=== PATIENT | male | born 1985 | race Caucasian/White ===

== ENCOUNTER 2019-10-25 15:27 | Emergency (ER) | payer SELFPAY ==
[2019-10-25] VITALS (8 sets, daily range): BP systolic 74–153; BP diastolic 41–110; PULSE 85–105; RESP 12–26; TEMP 36.8–37.7; O2SAT 91–99; BMI 27.7
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
--- NOTE | 2019-10-25 15:41 | PC.NURSE ---
also states, has not had antiseizure meds and anti tremors meds in a couple of months.
[2019-10-25 15:46] LABS: Add Manual Diff / Slide Review NO; Basophils Absolute Auto 100 /uL (0-100); Basophils Percent Auto 1.4 % (0-2); Eosinophils Absolute Auto 100 /uL (0-450); Eosinophils Percent Auto 0.5 % (2-4); Hematocrit 52.4 % (41-53); Hemoglobin 17.9 g/dL (13.5-17.5); Lymphocytes Absolute Auto 2800 /uL (1100-4500); Lymphocytes Percent Auto 26.8 % (25-40); Mean Corpuscular HGB Conc 34.2 % (30-36); Mean Corpuscular Hemoglobin 35.9 PG (26-34); Mean Corpuscular Volume 104.9 fL (80-100); Monocytes Absolute Auto 1500 /uL (0-900); Monocytes Percent Auto 14.7 % (3-14); Neutrophils Absolute Auto 5900 /uL (1500-7000); Neutrophils Percent Auto 56.6 % (50-75); Platelet Count 304 X10^3/uL (150-400); Red Blood Cell Count 4.99 X10^6/uL (4.5-5.9); Red Cell Distribution Width 15.4 % (11.6-14.8); White Blood Cell Count 10.4 X10^3/uL (4.5-11.0)
[2019-10-25 15:53] LABS: BUN Creatinine Ratio 6.7 (6-22); Blood Urea Nitrogen 6 mg/dL (9-20); Calcium 9.9 mg/dL (8.4-10.2); Carbon Dioxide 14 mmol/L (22-32); Chloride 101 mmol/L (98-107); Estimated Glomerular Filt Rate > 60.0 mL/min (>60); Glucose 117 mg/dL (70-100); HEMOLYSIS 34 (0-50); Magnesium 2.2 mg/dL (1.6-2.3); Potassium 3.6 mmol/L (3.4-5.1); Sodium 142 mmol/L (137-145)
[2019-10-25 16:09] LABS: Prolactin 32.4 ng/mL (3.7-17.9)
[2019-10-25 16:56] LABS: Albumin 5.2 g/dL (3.5-5.0); Albumin Globulin Ratio 1.8 (1.0-2.8); Alkaline Phosphatase 98 U/L (38-126); Bilirubin Total 1.8 mg/dL (0.2-1.3); Globulin 2.9 g/dL (1.7-4.1); Total Protein 8.1 g/dL (6.3-8.2)
[2019-10-25 17:02] LABS: Aspartate Aminotransferase 97 IU/L (17-59)
[2019-10-25 17:03] LABS: Alanine Aminotransferase 47 IU/L (<50)
[2019-10-25] MEDS: SODIUM CHLORIDE 0.9% 1,000 ML 1000 ML IV (17:46)
[2019-10-25] MEDS: ONDANSETRON 4 MG/2 ML INJ IV (17:46)
[2019-10-25] MEDS: LORazepam 2 MG/ML INJ IV (17:46)
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
[2019-10-25] MEDS: PHENobarbital 65 MG/ML VIAL 130 MG IV (19:04)
== END 2019-10-25 20:00 | disposition home or self-care (01) ==
PROVIDERS: Emergency Provider Emergency Medicine
DX: R56.9 Unspecified convulsions (principal); F10.239 Alcohol dependence with withdrawal, unspecified
CPT/HCPCS: 80053; 83735; 84146; 85025; 93005; 96361; 96374; 96375; 99284; J2060; J2405; J2560

== ENCOUNTER 2025-08-04 09:56 | Inpatient (IN) | payer OTHER, SELFPAY ==
[2025-08-04] VITALS (52 sets, daily range): BP systolic 75–137; BP diastolic 43–91; PULSE 79–121; RESP 15–44; TEMP 36.8; O2SAT 86–100; BMI 28.3
[2025-08-04 10:45] LABS: Add Manual Diff / Slide Review NO; Hematocrit 47.2 % (41-53); Hemoglobin 16.5 g/dL (13.5-17.5); Lymphocytes Absolute Auto 2200 /uL (1100-4500); Mean Corpuscular HGB Conc 35.0 % (30-36); Mean Corpuscular Hemoglobin 32.6 PG (26-34); Mean Corpuscular Volume 93.1 fL (80-100); Platelet Count 269 X10^3/uL (150-400)
[2025-08-04 10:57] LABS: Acetaminophen < 10 ug/mL (10-30); Alanine Aminotransferase 31 IU/L (<50); Albumin 4.7 g/dL (3.5-5.0); Albumin Globulin Ratio 1.8 (1.0-2.8); Alkaline Phosphatase 71 U/L (38-126); Blood Urea Nitrogen 4 mg/dL (9-20); Calcium 8.5 mg/dL (8.4-10.2); Carbon Dioxide 29 mmol/L (22-32); Chloride 94 mmol/L (98-107); Estimated Glomerular Filt Rate > 60 mL/min (>60); Globulin 2.6 g/dL (1.7-4.1); Glucose 122 mg/dL (70-99); HEMOLYSIS < 15 (0-50); Potassium 3.3 mmol/L (3.4-5.1); Salicylate < 1.0 mg/dL (<20); Sodium 139 mmol/L (137-145); Total Protein 7.3 g/dL (6.3-8.2)
[2025-08-04 11:16] LABS: Ethanol (ETOH) 405 mg/dL (<10)
[2025-08-04 11:28] LABS: TSH w/ Reflex to FT4 0.05 uIU/mL (0.47-4.68)
[2025-08-04 11:56] LABS: Free T4, Direct Thyroxine 2.08 ng/dL (0.78-2.19)
[2025-08-04 12:08] LABS: Ur Creatinine Normal (Normal); Ur Specific Gravity Normal (Normal); Urine MDMA Negative (Negative); Urine Methamphetamines Negative (Negative); Urine THC Positive (Negative); Urine Tricyclic Antidepressant Negative (Negative); Urine pH Normal (Normal)
--- NOTE | 2025-08-04 12:20 | ED_ITS ---
HPI - Alcohol <Kiran Serrano MD - Last Filed: 08/21/25 08:00> General Chief Complaint: Toxicology Problem Stated Complaint: alc withdrawals Time Seen by Provider: 08/04/25 12:11 History of Present Illness HPI narrative: 40-year-old male with a history of alcohol abuse requesting medical clearance to go to [facility] [place]. Reports he has a history of alcohol withdrawal seizures and was treated at that facility approximately 2 months ago. Said that he began drinking just a few days ago, 4 or 5 days ago was seen at [facility] in the emergency department with a pneumonia. Reportedly started drinking after that. Not having vomiting still has a cough and says he feels ?terrible?. Has had some nausea and vomiting. He is here accompanied by his father who assists with the history. Last drank alcohol this morning immediately prior to coming to the emergency department. Related Data Previous Rx's ?Medication ?Instructions ?Recorded ondansetron 4 mg disintegrating 4 mg PO Q6H PRN nausea and 10/25/19 tablet vomiting #14 tabs amoxicillin 875 mg-potassium 1 tab PO BID #14 tabs clavulanate 125 mg tablet chlordiazepoxide HCl 25 mg capsule 25 mg PO Q8-12H PRN anxiety #14 08/07/25 caps Allergies Allergy/AdvReac Type Severity Reaction Status Date / Time No Known Drug Allergies Allergy Verified 08/06/25 08:40 Patient History <Kiran Serrano MD - Last Filed: 08/21/25 08:00> Medical History Alcohol abuse Social History household members: family Smoking Status: Current some day smoker alcohol intake: current Smoking Status: Current every day smoker tobacco type: cigarettes alcohol intake frequency: other Alcohol type: hard liquor Exam <Kiran Serrano MD - Last Filed: 08/21/25 08:00> Initial Vital Signs Initial Vital Signs: Vital Signs Temperature 98.3 F 08/04/25 10:04 Pulse Rate 105 H 08/04/25 10:04 Respiratory Rate 20 08/04/25 10:04 Blood Pressure 134/86 08/04/25 10:04 Pulse Oximetry 95 08/04/25 10:04 Oxygen Delivery Method Room Air 08/04/25 10:04 Alert oriented, appears intoxicated with slurred speech. Mildly tachycardic alcohol on his breath Normocephalic and atraumatic head, pupils are equal and reactive oral mucosa is moist neck is supple Lungs have scattered wheezes Cardiac exam remarkable for mild tachycardia no murmur or gallop Abdomen normal bowel sounds soft and nontender Affect is depressed. He is not tremulous at present. <Selam Russell DO - Last Filed: 08/04/25 20:44> Initial Vital Signs Initial Vital Signs: Vital Signs Temperature 98.3 F 08/04/25 10:04 Pulse Rate 105 H 08/04/25 10:04 Respiratory Rate 20 08/04/25 10:04 Blood Pressure 134/86 08/04/25 10:04 Pulse Oximetry 95 08/04/25 10:04 Oxygen Delivery Method Room Air 08/04/25 10:04 Course <Kiran Serrano MD - Last Filed: 08/21/25 08:00> Orders Ordered: Discontinued Medications Hydrocodone Bitart/Acetaminophen (Hydrocodone/Acet 5/325 Tablet) 1 tab PO Q4HR PRN PRN Reason: Pain, Moderate (4-6) Last Admin: 08/05/25 08:18 Dose: 1 tab Documented By: MS Albuterol (Albuterol Hfa Mdi 60 Puff/8 Gm Inhaler (Covid Only)) 2 puff INH NOW ONE Stop: 08/04/25 12:24 Last Admin: 08/04/25 12:37 Dose: Not Given Documented By: SAT Albuterol (Albuterol 2.5 Mg/3 Ml Neb (Adult)) 2.5 mg INH NOW ONE Stop: 08/04/25 12:38 Last Admin: 08/04/25 12:46 Dose: 2.5 mg Documented By: SAT Azithromycin (Azithromycin 250 Mg Tablet) 500 mg PO NOW ONE Stop: 08/05/25 09:35 Last Admin: 08/05/25 10:01 Dose: 500 mg Documented By: MS Droperidol (Droperidol 2.5 Mg/Ml Vial) 0.625 mg IV NOW ONE Stop: 08/04/25 12:24 Last Admin: 08/04/25 12:54 Dose: 0.625 mg Documented By: IVAN Haloperidol (Haloperidol 5 Mg/Ml Vial) 5 mg IV Q1HR PRN PRN Reason: Hallucinations Heparin Sodium (Porcine) (Heparin 5,000 Unit/Ml Vial) 5,000 unit SUBCUT BID [facility] Last Admin: 08/05/25 08:19 Dose: 5,000 unit Documented By: Admin: 08/04/25 20:26 Dose: 5,000 unit Documented By: FM Heparin Sodium (Porcine) (Heparin Flush (Cl/Picc/Mid-Line) 50 Unit/5 Ml Syringe) 50 unit IV BID [facility] Last Admin: 08/05/25 08:19 Dose: Not Given Documented By: Heparin Sodium (Porcine) (Heparin Flush (Cl/Picc/Mid-Line) 50 Unit/5 Ml Syringe) 50 unit IV PRN PRN PRN Reason: Flush Sodium Chloride (Normal Saline 0.9%) 1,000 mls @ 1,000 mls/hr IV BOLUS ONE Stop: 08/04/25 13:22 Last Infusion: 08/04/25 16:23 Dose: Infused Documented By: Admin: 08/04/25 12:54 Dose: 499 mls/hr Documented By: CB Sodium Chloride (Normal Saline 0.9%) 1,000 mls @ 100 mls/hr IV CONT [facility] Last Admin: 08/05/25 10:32 Dose: 100 mls/hr Documented By: Infusion: 08/05/25 10:32 Dose: Infused Documented By: Admin: 08/05/25 02:39 Dose: 100 mls/hr Documented By: Infusion: 08/05/25 02:39 Dose: Infused Documented By: Admin: 08/04/25 19:14 Dose: 100 mls/hr Documented By: KIYA dexmedeTOMIDine in 0.9 % NaCL (Precedex) 400 mcg in 100 mls @ 4.876 mls/hr IV PROTOCOL [facility]; Protocol Last Admin: 08/05/25 14:38 Dose: 1 mcg/kg/hr, 24.381 mls/hr Documented By: Titration: 08/05/25 14:37 Dose: Infused Documented By: Admin: 08/05/25 10:30 Dose: 1 mcg/kg/hr, 24.381 mls/hr Documented By: Titration: 08/05/25 10:30 Dose: Infused Documented By: Titration: 08/05/25 09:57 Dose: 1 mcg/kg/hr, 24.381 mls/hr Documented By: Admin: 08/05/25 06:28 Dose: 0.8 mcg/kg/hr, 19.504 mls/hr Documented By: Titration: 08/05/25 06:12 Dose: Infused Documented By: Admin: 08/05/25 01:04 Dose: 0.8 mcg/kg/hr, 19.504 mls/hr Documented By: Titration: 08/05/25 01:02 Dose: Infused Documented By: Titration: 08/04/25 23:19 Dose: 0.8 mcg/kg/hr, 19.504 mls/hr Documented By: Titration: 08/04/25 21:25 Dose: 0.7 mcg/kg/hr, 17.066 mls/hr Documented By: Titration: 08/04/25 19:34 Dose: 0.6 mcg/kg/hr, 14.628 mls/hr Documented By: Admin: 08/04/25 18:59 Dose: 0.5 mcg/kg/hr, 12.19 mls/hr Documented By: KIYA Thiamine HCl 100 mg/ Sodium (Chloride) 101 mls @ 404 mls/hr IV DAILY [facility] POTASSIUM CHLORIDE IN WATER (Potassium Cl 10 Meq/100 Ml [place]) 10 meq in 100 mls @ 100 mls/hr IV Q1H [facility] Stop: 08/04/25 22:44 Last Infusion: 08/05/25 09:50 Dose: Infused Documented By: Admin: 08/05/25 06:30 Dose: 30 mls/hr Documented By: Infusion: 08/05/25 05:35 Dose: Infused Documented By: Admin: 08/05/25 02:15 Dose: 30 mls/hr Documented By: Infusion: 08/05/25 02:06 Dose: Infused Documented By: Infusion: 08/04/25 22:54 Dose: 30 mls/hr Documented By: Admin: 08/04/25 22:49 Dose: 50 mls/hr Documented By: Infusion: 08/04/25 21:33 Dose: Infused Documented By: Admin: 08/04/25 20:33 Dose: 100 mls/hr Documented By: Thiamine HCl 100 mg/ Sodium (Chloride) 101 mls @ 404 mls/hr IV DAILY [facility] Azithromycin 500 mg/ Dextrose 250 mls @ 250 mls/hr IV Q24H [facility] Stop: 08/07/25 10:00 Lorazepam (Lorazepam 2 Mg/Ml Inj) 2 mg IV NOW ONE Stop: 08/04/25 17:11 Last Admin: 08/04/25 17:16 Dose: 2 mg Documented By: CB Lorazepam (Lorazepam 2 Mg/Ml Inj) 2 mg IV NOW ONE Stop: 08/04/25 18:02 Last Admin: 08/04/25 18:41 Dose: Not Given Documented By: RB Lorazepam (Lorazepam 2 Mg/Ml Inj) 0 mg IV CIWAPRN PRN; Protocol PRN Reason: Alcohol Withdrawal Last Admin: 08/05/25 11:41 Dose: 2 mg Documented By: MS Lorazepam (Lorazepam 1 Mg Tablet) 0 mg PO CIWAPRN PRN; Protocol PRN Reason: Alcohol Withdrawal Magnesium Chloride (Magnesium Chloride 64 Mg Tablet) 128 mg PO NOW ONE Stop: 08/05/25 14:01 Last Admin: 08/05/25 14:38 Dose: 128 mg Documented By: MS Multivitamins (Multivitamin 1 Tablet) 1 tab PO DAILY [facility] Last Admin: 08/05/25 08:18 Dose: 1 tab Documented By: MS Naloxone HCl (Naloxone 0.4 Mg/Ml Vial) 0.2 mg IV Q2MIN PRN PRN Reason: Opiate Reversal Nicotine (Nicotine 21 Mg Patch) 21 mg TOP DAILY [facility] Last Admin: 08/05/25 08:19 Dose: 21 mg Documented By: Admin: 08/04/25 20:21 Dose: 21 mg Documented By: FM Phenobarbital (Phenobarbital 65 Mg/Ml Vial) 130 mg IV NOW ONE Stop: 08/04/25 16:17 Last Admin: 08/04/25 16:43 Dose: 130 mg Documented By: CB Phenobarbital (Phenobarbital 65 Mg/Ml Vial) 130 mg IV NOW ONE Stop: 08/04/25 17:11 Last Admin: 08/04/25 17:16 Dose: 130 mg Documented By: CB Phenobarbital (Phenobarbital 65 Mg/Ml Vial) 260 mg IV NOW ONE Stop: 08/04/25 18:02 Last Admin: 08/04/25 18:41 Dose: Not Given Documented By: RB Phenobarbital (Phenobarbital 65 Mg/Ml Vial) 65 mg IV Q8H [facility] Stop: 08/07/25 18:44 Last Admin: 08/05/25 10:01 Dose: 65 mg Documented By: Admin: 08/05/25 03:27 Dose: 65 mg Documented By: Admin: 08/04/25 19:14 Dose: 65 mg Documented By: KIYA Thiamine HCl (Thiamine 100 Mg Tablet) 100 mg PO DAILY [facility] Vital Signs Vital signs: Vital Signs - 8 hr 08/04/25 12:45 08/04/25 12:47 08/04/25 13:00 Pulse Rate 104 H 106 H Respiratory Rate 24 24 Blood Pressure 137/85 Pulse Oximetry 98 96 Oxygen Delivery Method Room Air Oxygen Flow Rate 08/04/25 13:00 08/04/25 13:15 08/04/25 13:30 Pulse Rate 107 H 93 H Respiratory Rate 23 Blood Pressure 105/66 Pulse Oximetry 96 93 Oxygen Delivery Method Oxygen Flow Rate 08/04/25 13:30 08/04/25 13:45 08/04/25 14:00 Pulse Rate 93 H 89 101 H Respiratory Rate 23 22 21 Blood Pressure Pulse Oximetry 91 86 L 95 Oxygen Delivery Method Room Air Oxygen Flow Rate 08/04/25 14:00 08/04/25 14:15 08/04/25 14:30 Pulse Rate 92 H 121 H Respiratory Rate 20 21 Blood Pressure 137/81 Pulse Oximetry 95 98 Oxygen Delivery Method Oxygen Flow Rate 08/04/25 14:30 08/04/25 14:45 08/04/25 15:00 Pulse Rate 100 H 96 H Respiratory Rate 22 20 Blood Pressure 125/83 Pulse Oximetry 95 97 Oxygen Delivery Method Oxygen Flow Rate 08/04/25 15:00 08/04/25 15:15 08/04/25 15:30 Pulse Rate 92 H 89 Respiratory Rate 20 19 Blood Pressure 127/77 Pulse Oximetry 96 97 Oxygen Delivery Method Oxygen Flow Rate 08/04/25 15:30 08/04/25 15:45 08/04/25 16:15 Pulse Rate 100 H 115 H Respiratory Rate 20 Blood Pressure 129/77 Pulse Oximetry 95 94 Oxygen Delivery Method Oxygen Flow Rate 08/04/25 16:30 08/04/25 16:45 08/04/25 16:53 Pulse Rate 103 H 105 H 104 H Respiratory Rate 15 18 20 Blood Pressure Pulse Oximetry 92 95 Oxygen Delivery Method Oximask Oxygen Flow Rate 2 08/04/25 16:53 08/04/25 17:00 08/04/25 17:00 Pulse Rate 103 H Respiratory Rate 22 Blood Pressure 133/84 135/80 Pulse Oximetry 92 Oxygen Delivery Method Oxygen Flow Rate 08/04/25 17:15 08/04/25 17:30 08/04/25 17:31 Pulse Rate 108 H 112 H Respiratory Rate 25 H 27 H Blood Pressure 108/82 Pulse Oximetry 93 94 Oxygen Delivery Method Oxygen Flow Rate 08/04/25 17:31 08/04/25 17:45 08/04/25 18:00 Pulse Rate 112 H 111 H 117 H Respiratory Rate 44 H 23 Blood Pressure Pulse Oximetry 94 95 95 Oxygen Delivery Method Oxygen Flow Rate 08/04/25 18:15 Pulse Rate 100 H Respiratory Rate 30 H Blood Pressure Pulse Oximetry 94 Oxygen Delivery Method Oxygen Flow Rate <Selam Russell DO - Last Filed: 08/04/25 20:44> Orders Ordered: Discontinued Medications Hydrocodone Bitart/Acetaminophen (Hydrocodone/Acet 5/325 Tablet) 1 tab PO Q4HR PRN PRN Reason: Pain, Moderate (4-6) Last Admin: 08/05/25 08:18 Dose: 1 tab Documented By: Albuterol (Albuterol Hfa Mdi 60 Puff/8 Gm Inhaler (Covid Only)) 2 puff INH NOW ONE Stop: 08/04/25 12:24 Last Admin: 08/04/25 12:37 Dose: Not Given Documented By: SAT Albuterol (Albuterol 2.5 Mg/3 Ml Neb (Adult)) 2.5 mg INH NOW ONE Stop: 08/04/25 12:38 Last Admin: 08/04/25 12:46 Dose: 2.5 mg Documented By: SAT Azithromycin (Azithromycin 250 Mg Tablet) 500 mg PO NOW ONE Stop: 08/05/25 09:35 Last Admin: 08/05/25 10:01 Dose: 500 mg Documented By: Droperidol (Droperidol 2.5 Mg/Ml Vial) 0.625 mg IV NOW ONE Stop: 08/04/25 12:24 Last Admin: 08/04/25 12:54 Dose: 0.625 mg Documented By: IVAN Haloperidol (Haloperidol 5 Mg/Ml Vial) 5 mg IV Q1HR PRN PRN Reason: Hallucinations Heparin Sodium (Porcine) (Heparin 5,000 Unit/Ml Vial) 5,000 unit SUBCUT BID [facility] Last Admin: 08/05/25 08:19 Dose: 5,000 unit Documented By: Admin: 08/04/25 20:26 Dose: 5,000 unit Documented By: FM Heparin Sodium (Porcine) (Heparin Flush (Cl/Picc/Mid-Line) 50 Unit/5 Ml Syringe) 50 unit IV BID [facility] Last Admin: 08/05/25 08:19 Dose: Not Given Documented By: Heparin Sodium (Porcine) (Heparin Flush (Cl/Picc/Mid-Line) 50 Unit/5 Ml Syringe) 50 unit IV PRN PRN PRN Reason: Flush Sodium Chloride (Normal Saline 0.9%) 1,000 mls @ 1,000 mls/hr IV BOLUS ONE Stop: 08/04/25 13:22 Last Infusion: 08/04/25 16:23 Dose: Infused Documented By: Admin: 08/04/25 12:54 Dose: 499 mls/hr Documented By: CB Sodium Chloride (Normal Saline 0.9%) 1,000 mls @ 100 mls/hr IV CONT [facility] Last Admin: 08/05/25 10:32 Dose: 100 mls/hr Documented By: Infusion: 08/05/25 10:32 Dose: Infused Documented By: Admin: 08/05/25 02:39 Dose: 100 mls/hr Documented By: Infusion: 08/05/25 02:39 Dose: Infused Documented By: Admin: 08/04/25 19:14 Dose: 100 mls/hr Documented By: KIYA dexmedeTOMIDine in 0.9 % NaCL (Precedex) 400 mcg in 100 mls @ 4.876 mls/hr IV PROTOCOL [place]; Protocol Last Admin: 08/05/25 14:38 Dose: 1 mcg/kg/hr, 24.381 mls/hr Documented By: Titration: 08/05/25 14:37 Dose: Infused Documented By: Admin: 08/05/25 10:30 Dose: 1 mcg/kg/hr, 24.381 mls/hr Documented By: Titration: 08/05/25 10:30 Dose: Infused Documented By: Titration: 08/05/25 09:57 Dose: 1 mcg/kg/hr, 24.381 mls/hr Documented By: Admin: 08/05/25 06:28 Dose: 0.8 mcg/kg/hr, 19.504 mls/hr Documented By: Titration: 08/05/25 06:12 Dose: Infused Documented By: Admin: 08/05/25 01:04 Dose: 0.8 mcg/kg/hr, 19.504 mls/hr Documented By: Titration: 08/05/25 01:02 Dose: Infused Documented By: Titration: 08/04/25 23:19 Dose: 0.8 mcg/kg/hr, 19.504 mls/hr Documented By: Titration: 08/04/25 21:25 Dose: 0.7 mcg/kg/hr, 17.066 mls/hr Documented By: Titration: 08/04/25 19:34 Dose: 0.6 mcg/kg/hr, 14.628 mls/hr Documented By: Admin: 08/04/25 18:59 Dose: 0.5 mcg/kg/hr, 12.19 mls/hr Documented By: KIYA Thiamine HCl 100 mg/ Sodium (Chloride) 101 mls @ 404 mls/hr IV DAILY [facility] POTASSIUM CHLORIDE IN WATER (Potassium Cl 10 Meq/100 Ml [place]) 10 meq in 100 mls @ 100 mls/hr IV Q1H [facility] Stop: 08/04/25 22:44 Last Infusion: 08/05/25 09:50 Dose: Infused Documented By: Admin: 08/05/25 06:30 Dose: 30 mls/hr Documented By: Infusion: 08/05/25 05:35 Dose: Infused Documented By: Admin: 08/05/25 02:15 Dose: 30 mls/hr Documented By: Infusion: 08/05/25 02:06 Dose: Infused Documented By: Infusion: 08/04/25 22:54 Dose: 30 mls/hr Documented By: Admin: 08/04/25 22:49 Dose: 50 mls/hr Documented By: Infusion: 08/04/25 21:33 Dose: Infused Documented By: Admin: 08/04/25 20:33 Dose: 100 mls/hr Documented By: Thiamine HCl 100 mg/ Sodium (Chloride) 101 mls @ 404 mls/hr IV DAILY [facility] Azithromycin 500 mg/ Dextrose 250 mls @ 250 mls/hr IV Q24H [facility] Stop: 08/07/25 10:00 Lorazepam (Lorazepam 2 Mg/Ml Inj) 2 mg IV NOW ONE Stop: 08/04/25 17:11 Last Admin: 08/04/25 17:16 Dose: 2 mg Documented By: CB Lorazepam (Lorazepam 2 Mg/Ml Inj) 2 mg IV NOW ONE Stop: 08/04/25 18:02 Last Admin: 08/04/25 18:41 Dose: Not Given Documented By: RB Lorazepam (Lorazepam 2 Mg/Ml Inj) 0 mg IV CIWAPRN PRN; Protocol PRN Reason: Alcohol Withdrawal Last Admin: 08/05/25 11:41 Dose: 2 mg Documented By: Lorazepam (Lorazepam 1 Mg Tablet) 0 mg PO CIWAPRN PRN; Protocol PRN Reason: Alcohol Withdrawal Magnesium Chloride (Magnesium Chloride 64 Mg Tablet) 128 mg PO NOW ONE Stop: 08/05/25 14:01 Last Admin: 08/05/25 14:38 Dose: 128 mg Documented By: Multivitamins (Multivitamin 1 Tablet) 1 tab PO DAILY [facility] Last Admin: 08/05/25 08:18 Dose: 1 tab Documented By: Naloxone HCl (Naloxone 0.4 Mg/Ml Vial) 0.2 mg IV Q2MIN PRN PRN Reason: Opiate Reversal Nicotine (Nicotine 21 Mg Patch) 21 mg TOP DAILY [facility] Last Admin: 08/05/25 08:19 Dose: 21 mg Documented By: Admin: 08/04/25 20:21 Dose: 21 mg Documented By: TAMARA Phenobarbital (Phenobarbital 65 Mg/Ml Vial) 130 mg IV NOW ONE Stop: 08/04/25 16:17 Last Admin: 08/04/25 16:43 Dose: 130 mg Documented By: CB Phenobarbital (Phenobarbital 65 Mg/Ml Vial) 130 mg IV NOW ONE Stop: 08/04/25 17:11 Last Admin: 08/04/25 17:16 Dose: 130 mg Documented By: CB Phenobarbital (Phenobarbital 65 Mg/Ml Vial) 260 mg IV NOW ONE Stop: 08/04/25 18:02 Last Admin: 08/04/25 18:41 Dose: Not Given Documented By: RB Phenobarbital (Phenobarbital 65 Mg/Ml Vial) 65 mg IV Q8H [facility] Stop: 08/07/25 18:44 Last Admin: 08/05/25 10:01 Dose: 65 mg Documented By: Admin: 08/05/25 03:27 Dose: 65 mg Documented By: Admin: 08/04/25 19:14 Dose: 65 mg Documented By: KIYA Thiamine HCl (Thiamine 100 Mg Tablet) 100 mg PO DAILY [facility] Vital Signs Vital signs: Vital Signs - 8 hr 08/04/25 12:45 08/04/25 12:47 08/04/25 13:00 Pulse Rate 104 H 106 H Respiratory Rate 24 24 Blood Pressure 137/85 Pulse Oximetry 98 96 Oxygen Delivery Method Room Air Oxygen Flow Rate 08/04/25 13:00 08/04/25 13:15 08/04/25 13:30 Pulse Rate 107 H 93 H Respiratory Rate 23 Blood Pressure 105/66 Pulse Oximetry 96 93 Oxygen Delivery Method Oxygen Flow Rate 08/04/25 13:30 08/04/25 13:45 08/04/25 14:00 Pulse Rate 93 H 89 101 H Respiratory Rate 23 22 21 Blood Pressure Pulse Oximetry 91 86 L 95 Oxygen Delivery Method Room Air Oxygen Flow Rate 08/04/25 14:00 08/04/25 14:15 08/04/25 14:30 Pulse Rate 92 H 121 H Respiratory Rate 20 21 Blood Pressure 137/81 Pulse Oximetry 95 98 Oxygen Delivery Method Oxygen Flow Rate 08/04/25 14:30 08/04/25 14:45 08/04/25 15:00 Pulse Rate 100 H 96 H Respiratory Rate 22 20 Blood Pressure 125/83 Pulse Oximetry 95 97 Oxygen Delivery Method Oxygen Flow Rate 08/04/25 15:00 08/04/25 15:15 08/04/25 15:30 Pulse Rate 92 H 89 Respiratory Rate 20 19 Blood Pressure 127/77 Pulse Oximetry 96 97 Oxygen Delivery Method Oxygen Flow Rate 08/04/25 15:30 08/04/25 15:45 08/04/25 16:15 Pulse Rate 100 H 115 H Respiratory Rate 20 Blood Pressure 129/77 Pulse Oximetry 95 94 Oxygen Delivery Method Oxygen Flow Rate 08/04/25 16:30 08/04/25 16:45 08/04/25 16:53 Pulse Rate 103 H 105 H 104 H Respiratory Rate 15 18 20 Blood Pressure Pulse Oximetry 92 95 Oxygen Delivery Method Oximask Oxygen Flow Rate 2 08/04/25 16:53 08/04/25 17:00 08/04/25 17:00 Pulse Rate 103 H Respiratory Rate 22 Blood Pressure 133/84 135/80 Pulse Oximetry 92 Oxygen Delivery Method Oxygen Flow Rate 08/04/25 17:15 08/04/25 17:30 08/04/25 17:31 Pulse Rate 108 H 112 H Respiratory Rate 25 H 27 H Blood Pressure 108/82 Pulse Oximetry 93 94 Oxygen Delivery Method Oxygen Flow Rate 08/04/25 17:31 08/04/25 17:45 08/04/25 18:00 Pulse Rate 112 H 111 H 117 H Respiratory Rate 44 H 23 Blood Pressure Pulse Oximetry 94 95 95 Oxygen Delivery Method Oxygen Flow Rate 08/04/25 18:15 Pulse Rate 100 H Respiratory Rate 30 H Blood Pressure Pulse Oximetry 94 Oxygen Delivery Method Oxygen Flow Rate MDM - Alcohol <Kiran Serrano MD - Last Filed: 08/21/25 08:00> Lab Data 08/05/25 07:13 08/05/25 07:13 Labs: Lab Results 08/04/25 08/04/25 08/04/25 Range/Units 10:28 11:30 16:35 WBC 10.2 (4.5-11.0) X10^3/uL RBC 5.07 (4.5-5.9) X10^6/uL Hgb 16.5 (13.5-17.5) g/dL Hct 47.2 (41-53) % MCV 93.1 (80-100) fL MCH 32.6 (26-34) PG MCHC 35.0 (30-36) % RDW 13.8 (11.6-14.8) % Plt Count 269 (150-400) X10^3/uL Neut % (Auto) 67.5 (50-75) % Lymph % (Auto) 21.4 L (25-40) % [place] % (Auto) 9.4 (3-14) % Eos % (Auto) 1.0 L (2-4) % Baso % (Auto) 0.7 (0-2) % Neut # (Auto) 6900 (1218-8579) /uL Lymph # (Auto) 2200 (3853-5316) /uL [place] # (Auto) 1000 H (0-900) /uL Eos # (Auto) 100 (0-450) /uL Baso # (Auto) 100 (0-100) /uL Sodium 139 (137-145) mmol/L Potassium 3.3 L (3.4-5.1) mmol/L Chloride 94 L (98-107) mmol/L Carbon Dioxide 29 (22-32) mmol/L BUN 4 L (9-20) mg/dL Creatinine 0.74 (0.66-1.25) mg/dL Estimated GFR > 60 (>60) mL/min BUN/Creatinine Ratio 5.4 L (6-22) Glucose 122 H (70-99) mg/dL Calcium 8.5 (8.4-10.2) mg/dL Total Bilirubin 0.3 (0.2-1.3) mg/dL AST 32 (17-59) IU/L ALT 31 (<50) IU/L Alkaline Phosphatase 71 (38-126) U/L Total Protein 7.3 (6.3-8.2) g/dL Albumin 4.7 (3.5-5.0) g/dL Globulin 2.6 (1.7-4.1) g/dL Albumin/Globulin Ratio 1.8 (1.0-2.8) TSH 0.05 L (0.47-4.68) uIU/mL Free T4 2.08 (0.78-2.19) ng/dL Salicylates < 1.0 (<20) mg/dL U Opiates 300ng/mL cut Negative (Negative) Ur Oxycodone Screen Negative (Negative) Urine Methadone Screen Negative (Negative) Acetaminophen < 10 (10-30) ug/mL Ur Barbiturates Screen Negative (Negative) U Tricyclic Antidepress Negative (Negative) Ur Phencyclidine Scrn Negative (Negative) Ur Amphetamines Screen Negative (Negative) U Methamphetamines Scrn Negative (Negative) Ur MDMA Scrn (Ecstasy) Negative (Negative) U Benzodiazepines Scrn Negative (Negative) Urine Cocaine Screen Negative (Negative) U Marijuana (THC) Screen Positive H (Negative) Urine pH Normal (Normal) Urine Specific [place] Normal (Normal) Ethyl Alcohol 405 H* 304 H (<10) mg/dL Ur Creatinine Normal (Normal) Urine Dip Bedside Urine Glucose Negative Bedside Urine Bilirubin - Negative Bedside Urine Ketone - Negative Urine Specific [place] 1.005 Bedside Urine Occult Blood - Negative Bedside Urine pH 6 Bedside Urine Protein - Negative Bedside Urine Urobilinogen 0.2 Bedside Urine Nitrite - Negative Bedside Urine Leukocytes - Negative Esterase <Selam Russell DO - Last Filed: 08/04/25 20:44> Lab Data Labs: Lab Results 08/04/25 08/04/25 08/04/25 Range/Units 10:28 11:30 16:35 WBC 10.2 (4.5-11.0) X10^3/uL RBC 5.07 (4.5-5.9) X10^6/uL Hgb 16.5 (13.5-17.5) g/dL Hct 47.2 (41-53) % MCV 93.1 (80-100) fL MCH 32.6 (26-34) PG MCHC 35.0 (30-36) % RDW 13.8 (11.6-14.8) % Plt Count 269 (150-400) X10^3/uL Neut % (Auto) 67.5 (50-75) % Lymph % (Auto) 21.4 L (25-40) % [place] % (Auto) 9.4 (3-14) % Eos % (Auto) 1.0 L (2-4) % Baso % (Auto) 0.7 (0-2) % Neut # (Auto) 6900 (5136-8722) /uL Lymph # (Auto) 2200 (3046-2485) /uL [place] # (Auto) 1000 H (0-900) /uL Eos # (Auto) 100 (0-450) /uL Baso # (Auto) 100 (0-100) /uL Sodium 139 (137-145) mmol/L Potassium 3.3 L (3.4-5.1) mmol/L Chloride 94 L (98-107) mmol/L Carbon Dioxide 29 (22-32) mmol/L BUN 4 L (9-20) mg/dL Creatinine 0.74 (0.66-1.25) mg/dL Estimated GFR > 60 (>60) mL/min BUN/Creatinine Ratio 5.4 L (6-22) Glucose 122 H (70-99) mg/dL Calcium 8.5 (8.4-10.2) mg/dL Total Bilirubin 0.3 (0.2-1.3) mg/dL AST 32 (17-59) IU/L ALT 31 (<50) IU/L Alkaline Phosphatase 71 (38-126) U/L Total Protein 7.3 (6.3-8.2) g/dL Albumin 4.7 (3.5-5.0) g/dL Globulin 2.6 (1.7-4.1) g/dL Albumin/Globulin Ratio 1.8 (1.0-2.8) TSH 0.05 L (0.47-4.68) uIU/mL Free T4 2.08 (0.78-2.19) ng/dL Salicylates < 1.0 (<20) mg/dL U Opiates 300ng/mL cut Negative (Negative) Ur Oxycodone Screen Negative (Negative) Urine Methadone Screen Negative (Negative) Acetaminophen < 10 (10-30) ug/mL Ur Barbiturates Screen Negative (Negative) U Tricyclic Antidepress Negative (Negative) Ur Phencyclidine Scrn Negative (Negative) Ur Amphetamines Screen Negative (Negative) U Methamphetamines Scrn Negative (Negative) Ur MDMA Scrn (Ecstasy) Negative (Negative) U Benzodiazepines Scrn Negative (Negative) Urine Cocaine Screen Negative (Negative) U Marijuana (THC) Screen Positive H (Negative) Urine pH Normal (Normal) Urine Specific [place] Normal (Normal) Ethyl Alcohol 405 H* 304 H (<10) mg/dL Ur Creatinine Normal (Normal) Urine Dip Bedside Urine Glucose Negative Bedside Urine Bilirubin - Negative Bedside Urine Ketone - Negative Urine Specific [place] 1.005 Bedside Urine Occult Blood - Negative Bedside Urine pH 6 Bedside Urine Protein - Negative Bedside Urine Urobilinogen 0.2 Bedside Urine Nitrite - Negative Bedside Urine Leukocytes - Negative Esterase MDM Narrative Medical decision making narrative: 1700-I have received sign-out from Dr. Serrano I have seen evaluated patient myself. Patient 40-year-old male history of alcoholism presenting to day with alcohol intoxication wanting detox. Initial alcohol level was greater than 400 repeat his at 300. Accommodations has been made for him to go to detox at level of 250. He is getting quite anxious at the moment he still wants to go to detox but really wants to go outside and have a smoke. He agrees to more medication. He is given more Ativan and phenobarbital. Blood work has been reviewed no anemia no leukocytosis, mild hypokalemia with a potassium of 3 point 3 glucose 122. Bilirubin liver enzymes within normal limits Awaiting alcohol level to be appropriate for detox. Patient continues to be anxious requiring more medication. Detox will not take him due to the amount of medication he is requiring. Dr. Sheridan updated symptoms test results kindly agrees to ICU admission Discharge Plan Departure Patient Disposition: Admitted As Inpatient Clinical Impression: Alcohol withdrawal Qualifiers: Complication of substance-induced condition: with unspecified complication Q ualified Code(s): F10.939 - Alcohol use, unspecified with withdrawal, unspecified Admit Date/Time: 08/04/25 18:25 Admit Provider: Rodger Sheridan
--- NOTE | 2025-08-04 12:23 | DI.RAD.S_ITS ---
PROCEDURE: XR CHEST 1V INDICATIONS: pneumonia TECHNIQUE: One view of the chest was acquired. COMPARISON: None. FINDINGS: Area of high attenuation at the right side of the lower cervical spine most likely related to prior arterial venous malformation embolization procedure. Mild bilateral perihilar and lower lobe peribronchial thickening with patchy lower lobe opacities, more than expected for expiratory result and subsegmental atelectasis; bronchitis, viral infection, bronchopneumonia, asthma or other process should be considered. Follow-up suggested. Mildly prominent allison, mildly prominent pulmonary vessels and/or hilar lymph nodes. Cardiopericardial silhouette within normal limits. No pneumothorax, no pleural effusion. IMPRESSION: Mild peribronchial thickening and patchy opacities as discussed above. Follow- up suggested. If symptoms persist or worsen, CT chest could be performed. Mildly prominent allison. Dictated by: Gus Clement M.D. on 08/04/2025 at 13:18 Approved by: Gus Clement M.D. on 08/04/2025 at 13:23
[2025-08-04] MEDS: ALBUTEROL 2.5 MG/3 ML NEB (ADULT) INH (12:46)
[2025-08-04] MEDS: SODIUM CHLORIDE 0.9% 1,000 ML 499 ML IV (12:54)
[2025-08-04] MEDS: droPERidol 2.5 MG/ML VIAL 0.625 MG IV (12:54)
--- NOTE | 2025-08-04 12:55 | PC.NURSE ---
Pt Iv is positional and wont tolerate prescribed rate. Decreased rate to 499- Md aware.
[2025-08-04 17:05] LABS: Ethanol (ETOH) 304 mg/dL (<10)
--- NOTE | 2025-08-04 18:16 | PC.NURSE ---
Patient reassessed and had CIWA of 18. Provider notified and ordered additional medications. Upon getting medications and returning to patient room patient is resting eyes and notable chest rise and fall with intermittent snoring is noted. Medication returned to pyxis due to this. Provider assessed patient in room during this time and cancelled medications verbally. No medications administered to this patient.
--- NOTE | 2025-08-04 18:37 | P.HP_ITS ---
History of Present Illness History of Present Illness Date Patient Seen: 08/04/25 Time Patient Seen: 18:37 Chief complaint: alc withdrawals Narrative: The patient was a 40-year-old male in the emergency department with the acute alcohol intoxication and impending withdrawal. He was sedated with lorazepam and 2 doses of phenobarbital, 130 each. He has been admitted for withdrawal syndrome. The patient is requiring symptomatic treatment already, with a BAL of around 300. The patient does have history of alcohol use disorder. My evaluation finds him to be in the ER, comfortable and sedated. He was not able to provide any history. Vital signs are stable, he was on 2 L of. ROS not obtainable due to somnolence. O: Patient was sedated, on arousable but appears comfortable. He was breathing without difficulty. Normocephalic skull, EOMI, anicteric sclera, symmetric pupils. Oropharynx unremarkable, no droop. Neck supple, midline trachea, no adenopathy. Lungs clear, normal rate and effort. Heart regular, no murmur gallop or rub. Abdomen is soft, non distended and non tender. Extremities are free of edema. Skin is free of rash or lesions. Joints are not swollen or deformed. Judgment can not be assessed. IMAGING: CXR: Mild peribronchial thickening and patchy opacities as discussed above. Follow- up suggested. If symptoms persist or worsen, CT chest could be performed. Mildly prominent allison. A/P: 1. Initial alcohol intoxication, now with impending withdrawal. 2. Hypokalemia PLAN: -[facility] protocol -phenobarbital scheduled Q 8 hours -ICU level care -Precedex if needed -thiamine 100 mg IV daily -normal saline at 100 mL/hour -replete potassium Default to full resuscitation Appears to live on [facility]. Father is proxy decision maker Will require least 2 midnights in the hospital, supports inpatient status. [facility] Medical History Alcohol abuse Social History Smoking Status: Current every day smoker Meds Home Medications and Allergies Home Medications ?Medication ?Instructions ?Recorded ?Confirmed ?Type chlordiazepoxide HCl 25 mg capsule See Rx Instructions .Route 10/25/19 Rx .COMPLEX PRN alcohol withdrawal #14 caps ondansetron 4 mg disintegrating 4 mg PO Q6H PRN nausea and 10/25/19 Rx tablet vomiting #14 tabs Allergies Allergy/AdvReac Type Severity Reaction Status Date / Time No Known Drug Allergies Allergy Verified 10/25/19 15:41 Exam Vital Signs (past 8 hours): - 08/04/25 11:35 08/04/25 11:35 08/04/25 12:00 Pulse Rate 99 H Respiratory Rate 18 Blood Pressure 123/91 H 133/85 Pulse Oximetry 92 Oxygen Delivery Method 08/04/25 12:00 08/04/25 12:15 08/04/25 12:30 Pulse Rate 90 109 H Respiratory Rate 22 Blood Pressure 136/90 Pulse Oximetry 93 100 Oxygen Delivery Method 08/04/25 12:30 08/04/25 12:45 08/04/25 12:47 Pulse Rate 103 H 104 H 106 H Respiratory Rate 24 24 Blood Pressure Pulse Oximetry 95 98 96 Oxygen Delivery Method Room Air 08/04/25 13:00 08/04/25 13:00 08/04/25 13:15 Pulse Rate 107 H 93 H Respiratory Rate 23 Blood Pressure 137/85 Pulse Oximetry 96 93 Oxygen Delivery Method 08/04/25 13:30 08/04/25 13:30 08/04/25 13:45 Pulse Rate 93 H 89 Respiratory Rate 23 22 Blood Pressure 105/66 Pulse Oximetry 91 86 L Oxygen Delivery Method Room Air 08/04/25 14:00 08/04/25 14:00 08/04/25 14:15 Pulse Rate 101 H 92 H Respiratory Rate 21 20 Blood Pressure 137/81 Pulse Oximetry 95 95 Oxygen Delivery Method 08/04/25 14:30 08/04/25 14:30 08/04/25 14:45 Pulse Rate 121 H 100 H Respiratory Rate 21 22 Blood Pressure 125/83 Pulse Oximetry 98 95 Oxygen Delivery Method 08/04/25 15:00 08/04/25 15:00 08/04/25 15:15 Pulse Rate 96 H 92 H Respiratory Rate 20 20 Blood Pressure 127/77 Pulse Oximetry 97 96 Oxygen Delivery Method 08/04/25 15:30 08/04/25 15:30 08/04/25 15:45 Pulse Rate 89 100 H Respiratory Rate 19 20 Blood Pressure 129/77 Pulse Oximetry 97 95 Oxygen Delivery Method 08/04/25 16:15 08/04/25 16:30 Pulse Rate 115 H 103 H Respiratory Rate 15 Blood Pressure Pulse Oximetry 94 92 Oxygen Delivery Method Oxygen Delivery Method Room Air Objective Labs 08/04/25 10:28 08/04/25 10:28 Labs: Laboratory Results - last 24 hr 08/04/25 08/04/25 08/04/25 10:28 11:30 16:35 WBC 10.2 RBC 5.07 Hgb 16.5 Hct 47.2 MCV 93.1 MCH 32.6 MCHC 35.0 RDW 13.8 Plt Count 269 Neut % (Auto) 67.5 Lymph % (Auto) 21.4 L [place] % (Auto) 9.4 Eos % (Auto) 1.0 L Baso % (Auto) 0.7 Neut # (Auto) 6900 Lymph # (Auto) 2200 [place] # (Auto) 1000 H Eos # (Auto) 100 Baso # (Auto) 100 Sodium 139 Potassium 3.3 L Chloride 94 L Carbon Dioxide 29 BUN 4 L Creatinine 0.74 Estimated GFR > 60 BUN/Creatinine Ratio 5.4 L Glucose 122 H Calcium 8.5 Total Bilirubin 0.3 AST 32 ALT 31 Alkaline Phosphatase 71 Total Protein 7.3 Albumin 4.7 Globulin 2.6 Albumin/Globulin Ratio 1.8 TSH 0.05 L Free T4 2.08 Salicylates < 1.0 U Opiates 300ng/mL cut Negative Ur Oxycodone Screen Negative Urine Methadone Screen Negative Acetaminophen < 10 Ur Barbiturates Screen Negative U Tricyclic Antidepress Negative Ur Phencyclidine Scrn Negative Ur Amphetamines Screen Negative U Methamphetamines Scrn Negative Ur MDMA Scrn (Ecstasy) Negative U Benzodiazepines Scrn Negative Urine Cocaine Screen Negative U Marijuana (THC) Screen Positive H Urine pH Normal Urine Specific Twilight Normal Ethyl Alcohol 405 H* 304 H Ur Creatinine Normal Assessment & Plan Time-Based Coding :: 35 min spent with patient and on the chart (including review of chart, obtaining history, exam, reviewing outside data, placing orders, documenting exam and treatment plan, and counseling patient) on 08/04. Quality MIPS - Admit I confirm the patient?s Advance Care Plan is present, Code status is documented, Surrogate decision maker is in patient?s record [If Yes, STOP here]: Yes MIPS - Meds 'Current medications' to include all prescriptions, [id number] products, herbals, cannabis/cannabidiol products, and vitamin/mineral/dietary (nutritional) supplements. I have utilized all available resources to obtain, update, or review the patient?s current medications. [If Yes, STOP here]: Yes
--- NOTE | 2025-08-04 18:47 | CM.IDA ---
Initial DCP Assessment Patient is 40 y/o male who presents to ED due to concern for ETOH withdrawals seeking detox at [facility]. Patient initially presented to [facility] seeking detox but they requested patient seek medical clearance. Patient has [employer] insurance, PCP unknown at this time. Patient has hx of presentations at other hospitals due to concern for ETOH withdrawals and ETOH use. Patient has hx of ETOh withdrawal seizures. MECHANICAL PRODUCT ENGINEER meets with patient and he endorses his preference to go to [facility], upon arrival to ED patient's BAL was 405 and currently trending down. Patient presents with current withdrawal symptoms including, nausea, headache, anxiety, restlessness, sweating with a CIWA of 18. Patient is present in ED with his father. Upon MECHANICAL PRODUCT ENGINEER's presentation to patient's room patient was discussing wanting to leave the ED, patient is verbally redirected and provided with medication and agreeable to stay. Prior to ED patient drank a full bottle of vodka, patient has hx of daily ETOH use. It is reported patient recently relapsed and had 34 days of sobriety. MECHANICAL PRODUCT ENGINEER faxes clinicals to [facility] and it is reported that they could take him tonight if ED provider provides needed rx for patient as [facility]'s pharmacy is closed for the evening. Upon further evaluation from RN and ED provider, due to patient's current withdrawal symptoms and CIWA score patient has been admitted to the ICU by Dr. Sheridan for further treatment and evaluation. Plan: Patient admitted to ICU for further treatment and evaluation, DCP to discuss TOBY treatment options upon medical clearance. JOÃO Early Discharge Planning/Care Management CM Discharge Assessment Start: 08/04/25 18:37 Freq: Status: Active Protocol: Document 08/04/25 18:45 LN (Rec: 08/04/25 18:47 LN [id number]) Discharge Planning Assessment Assigned Discharge JOÃO [place] Food Safety Officer Insurance [employer] Advance Directives? No Advance Directives No on File History Provided By Patient,Family Member,Medical Record Prior Living House Arrangements Type of Drives own vehicle transporation used prior to admit Independent with ADL Yes 's Is patient alert and Yes oriented? Transportation Patient initially wanted to go to detox at [facility], Arrangement revisit TOBY treatment conversation upon medical clearance.
[2025-08-04 18:59] LABS: Ethanol (ETOH) 281 mg/dL (<10)
[2025-08-04] MEDS: dexmedeTOMIDine in 0.9 % NaCL 400 MCG/100 ML PLAST..BAG 12.19 MCG IV (18:59)
[2025-08-04] MEDS: SODIUM CHLORIDE 0.9% 1,000 ML 100 ML IV (19:14)
[2025-08-04] MEDS: NICOTINE 21 MG PATCH TOP (20:21)
[2025-08-04] MEDS: HEPARIN 5,000 UNIT/ML VIAL 5000 UNIT SUBCUT (20:26)
[2025-08-04] MEDS: POTASSIUM CHLORIDE IN WATER 10 MEQ/100 ML PIGGYBACK 100 MEQ IV (20:33)
[2025-08-04 21:27] LABS: MRSA (Nasal) PCR NOT DETECTED (Not Detect)
[2025-08-04] MEDS: POTASSIUM CHLORIDE IN WATER 10 MEQ/100 ML PIGGYBACK 50 MEQ IV (22:49)
--- NOTE | 2025-08-04 22:55 | PC.NURSE ---
Potassium Chloride 10 Meq infusion rate decreased to 30 ml/hr d/t patient complaint of pain with PIV site, able to tolerate after infusion rate reduction.
[2025-08-05] VITALS (64 sets, daily range): BP systolic 89–159; BP diastolic 50–106; PULSE 49–81; RESP 16–46; TEMP 36.7–37; O2SAT 89–97
[2025-08-05] MEDS: dexmedeTOMIDine in 0.9 % NaCL 400 MCG/100 ML PLAST..BAG 19.504 MCG IV ×2 (01:04→06:28)
[2025-08-05] MEDS: POTASSIUM CHLORIDE IN WATER 10 MEQ/100 ML PIGGYBACK 30 MEQ IV ×2 (02:15→06:30)
[2025-08-05] MEDS: SODIUM CHLORIDE 0.9% 1,000 ML 100 ML IV ×2 (02:39→10:32)
[2025-08-05 07:24] LABS: Add Manual Diff / Slide Review NO; Hematocrit 40.7 % (41-53); Hemoglobin 14.4 g/dL (13.5-17.5); Lymphocytes Absolute Auto 2000 /uL (1100-4500); Mean Corpuscular HGB Conc 35.4 % (30-36); Mean Corpuscular Hemoglobin 33.1 PG (26-34); Mean Corpuscular Volume 93.5 fL (80-100); Platelet Count 81 X10^3/uL (150-400)
[2025-08-05 07:32] LABS: Alanine Aminotransferase 29 IU/L (<50); Albumin 3.6 g/dL (3.5-5.0); Albumin Globulin Ratio 1.6 (1.0-2.8); Alkaline Phosphatase 51 U/L (38-126); Blood Urea Nitrogen 7 mg/dL (9-20); Calcium 7.7 mg/dL (8.4-10.2); Carbon Dioxide 25 mmol/L (22-32); Chloride 98 mmol/L (98-107); Estimated Glomerular Filt Rate > 60 mL/min (>60); Globulin 2.3 g/dL (1.7-4.1); Glucose 165 mg/dL (70-99); HEMOLYSIS 39 (0-50); Magnesium 1.7 mg/dL (1.6-2.3); Potassium 3.7 mmol/L (3.4-5.1); Sodium 133 mmol/L (137-145); Total Protein 5.9 g/dL (6.3-8.2)
--- NOTE | 2025-08-05 07:54 | DI.RAD.S_ITS ---
PROCEDURE: XR CHEST 1V INDICATIONS: possible PNA TECHNIQUE: One view of the chest was acquired. COMPARISON: [facility], , XR CHEST 1V, 08/04/2025, 12:26. FINDINGS: Surgical changes and devices: Unchanged appearance of increased densities overlying the right neck. Lungs and pleura: Lungs are clear. No pleural effusions or pneumothorax. Mediastinum: Mediastinal contours appear normal. Heart size is normal. Bones and chest wall: No suspicious bony lesions. Overlying soft tissues appear unremarkable. IMPRESSION: No acute pulmonary process. Dictated by: Jennifer Joseph M.D. on 08/05/2025 at 8:21 Approved by: Jennifer Joseph M.D. on 08/05/2025 at 8:22
[2025-08-05] MEDS: MULTIVITAMIN 1 TABLET 1 TAB PO (08:18)
[2025-08-05] MEDS: HEPARIN 5,000 UNIT/ML VIAL 5000 UNIT SUBCUT (08:19)
[2025-08-05] MEDS: NICOTINE 21 MG PATCH TOP (08:19)
[2025-08-05] MEDS: AZITHROMYCIN 250 MG TABLET 500 MG PO (10:01)
[2025-08-05] MEDS: dexmedeTOMIDine in 0.9 % NaCL 400 MCG/100 ML PLAST..BAG 24.381 MCG IV ×2 (10:30→14:38)
--- NOTE | 2025-08-05 11:14 | DI.RAD.S_ITS ---
PROCEDURE: XR CHEST FOR PICC 1V INDICATIONS: PICC line placement COMPARISON: [facility], CR, XR CHEST 1V, 08/05/2025, 7:56. FINDINGS: PICC was placed by the intravenous therapy team from the right side. Fluoroscopic spot film demonstrates the tip of PICC projecting to the area of distal SVC. IMPRESSION: Tip of PICC projects to the area of distal SVC. Dictated by: Jennifer Joseph M.D. on 08/05/2025 at 11:46 Approved by: Jennifer Joseph M.D. on 08/05/2025 at 11:46
--- NOTE | 2025-08-05 11:39 | CM.DPNOTE ---
DCP note HANDLE BENDER reviewed EMR pt chart/provider report, on precedex, getting PICC line for abx (pneumonia) per RN, A/Ox4, just a little sleepy. HANDLE BENDER met with pt in room briefly. introduced self and role. pt kindly requested we chat more later. this HANDLE BENDER agreed to come back later today vs tomorrow to discuss DCP options P: will continue to discuss TOBY tx options when appropriate. INPT vs OP ETOH rehab likely. hx of leaving [facility]
[2025-08-05 13:29] LABS: Coronavirus NL 63 Not Detected (Not Detect); SARS- CoV-2 Not Detected (Not Detecte)
[2025-08-05] MEDS: MAGNESIUM CHLORIDE 64 MG TABLET 128 MG PO (14:38)
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
== END 2025-08-05 17:42 | disposition left against medical advice (07) | DRG 770 ==
LOC: ED 18:25 → AC 18:26 → ICU 18:47
PROVIDERS: Emergency Medicine; Family Medicine; Internal Medicine; Admitting Provider Hospitalist; Emergency Provider Emergency Medicine; Referring Provider Emergency Medicine; Visit Provider Hospitalist
DX: F10.239 Alcohol dependence with withdrawal, unspecified (principal); F10.229 Alcohol dependence with intoxication, unspecified; E87.6 Hypokalemia; E87.1 Hypo-osmolality and hyponatremia; J06.9 Acute upper respiratory infection, unspecified; F17.200 Nicotine dependence, unspecified, uncomplicated; Z53.29 Procedure and treatment not carried out because of patient's decision for other reasons; Y90.8 Blood alcohol level of 240 mg/100 ml or more
CPT/HCPCS: 36415; 36573; 71045; 80053; 80305; 80320; 80329; 81003; 83735; 84439; 84443; 85025; 87633; 87797; 94640; 96361; 96374; 96375; 96376; 99284; A9270; G0480; J1644; J1790; J2060; J2560; J7030; J7613

== ENCOUNTER 2025-08-06 08:19 | Inpatient (IN) | payer OTHER, SELFPAY ==
[2025-08-04 20:37] VITALS: BMI 28.3
[2025-08-06] VITALS (37 sets, daily range): BP systolic 100–173; BP diastolic 52–99; PULSE 83–121; RESP 15–24; TEMP 36.7–36.9; O2SAT 92–99; BMI 30.2; BMI 29.6
--- NOTE | 2025-08-06 09:08 | ED_ITS ---
HPI - Alcohol General Chief Complaint: Toxicology Problem Stated Complaint: Intoxicated Time Seen by Provider: 08/06/25 08:24 Source: patient and EMS Mode of arrival: EMS History of Present Illness HPI narrative: 40-year-old gentleman history of alcohol use abuse disorder admitted on 08/04/2025 left against medical advice on 08/05/2025 presents with nausea vomiting incontinent of stool and urine and intoxication presents with alcohol intoxication and withdrawal after ingesting 2 gal of vodka last drink was 10 hours ago. Patient initially refused to get out of the car after father brought him here EMS had to called from the parking lot to transfer him directly to the ER. He denies any suicidal or homicidal ideation at this time. He is requesting help for his withdrawal at this time. Other than what is stated 14 point review of system is negative. Related Data Previous Rx's ?Medication ?Instructions ?Recorded ondansetron 4 mg disintegrating 4 mg PO Q6H PRN nausea and 10/25/19 tablet vomiting #14 tabs Allergies Allergy/AdvReac Type Severity Reaction Status Date / Time No Known Drug Allergies Allergy Verified 08/06/25 08:40 Review of Systems Review of Systems ROS Unobtainable: All systems reviewed & are unremarkable except as noted in HPI and below Patient History Medical History Alcohol abuse Social History household members: family Smoking Status: Current some day smoker Smoking Status: Current some day smoker tobacco type: cigarettes alcohol intake frequency: other Alcohol type: hard liquor Exam Narrative Exam Narrative: GENERAL: [40] year old patient appears stated age. Well-developed patient, in mild distress. HEAD: Atraumatic. Normocephalic. EYES: Pupils equal round and reactive. Extraocular motions intact. No scleral icterus. No injection or drainage. ENT: Nose without bleeding, purulent drainage. Throat without erythema, tonsillar hypertrophy or exudate. Airway patent. NECK: Trachea midline. Non tender CARDIOVASCULAR: Tachycardic Regular rate and rhythm without murmurs, gallops, or rubs. RESPIRATORY: Clear to auscultation. Breath sounds equal bilaterally. No wheezes, rales, or rhonchi. GASTROINTESTINAL: Abdomen soft, non-tender, nondistended. EXTREMITIES: No edema or joint tenderness. BACK: Nontender without deformity or crepitance. No flank tenderness. NEURO: AOx3. SKIN: No rash or erythema of visible areas Initial Vital Signs Initial Vital Signs: Vital Signs Pulse Rate 113 H 08/06/25 08:29 Pulse Oximetry 95 08/06/25 08:29 Course Orders Ordered: ED Orders 08/06/25 08:35 Complete Blood Count AUTO DIFF Stat Comprehensive Metabolic Panel Stat Ethanol (ETOH) Stat Free T4, Direct Thyroxine Stat TSH w/ Reflex to FT4 Stat 08/06/25 09:36 Urinalysis and Microscopic Stat Urine Drug Screen, Rapid Stat 08/06/25 09:54 EKG-12 Lead Stat 08/06/25 15:55 Chest [XR chest 1V] Stat Discontinued Medications Ketorolac Tromethamine (Ketorolac 30 Mg/Ml Vial) 30 mg IM NOW ONE Stop: 08/06/25 13:06 Last Admin: 08/06/25 13:11 Dose: 30 mg Documented By: RB Lorazepam (Lorazepam 2 Mg/Ml Inj) 2 mg IM NOW ONE Stop: 08/06/25 09:31 Last Admin: 08/06/25 09:34 Dose: 2 mg Documented By: RB Midazolam HCl (Midazolam 5 Mg/Ml Vial) 2.5 mg IM NOW ONE Stop: 08/06/25 10:31 Last Admin: 08/06/25 10:45 Dose: 2.5 mg Documented By: RB Midazolam HCl (Midazolam 5 Mg/Ml Vial) 2.5 mg IM NOW ONE Stop: 08/06/25 12:43 Last Admin: 08/06/25 12:51 Dose: 2.5 mg Documented By: RB Midazolam HCl (Midazolam 5 Mg/Ml Vial) 2.5 mg IM NOW ONE Stop: 08/06/25 13:06 Last Admin: 08/06/25 13:11 Dose: 2.5 mg Documented By: RB Midazolam HCl (Midazolam 5 Mg/Ml Vial) 2.5 mg IM NOW ONE Stop: 08/06/25 15:26 Last Admin: 08/06/25 15:27 Dose: 2.5 mg Documented By: ES Nicotine (Nicotine 21 Mg Patch) 21 mg TOP NOW ONE Stop: 08/06/25 15:31 Last Admin: 08/06/25 15:58 Dose: 21 mg Documented By: [facility] Vital Signs Vital signs: Vital Signs - 8 hr 08/06/25 08:29 08/06/25 08:30 08/06/25 08:30 Temperature Pulse Rate 113 H 116 H Respiratory Rate Blood Pressure 112/85 Pulse Oximetry 95 95 Oxygen Delivery Method 08/06/25 08:40 08/06/25 09:00 08/06/25 09:30 Temperature 98.5 F Pulse Rate 115 H 98 H 113 H Respiratory Rate 22 22 Blood Pressure 112/85 Pulse Oximetry 95 93 98 Oxygen Delivery Method Room Air 08/06/25 09:30 08/06/25 10:00 08/06/25 10:00 Temperature Pulse Rate 113 H Respiratory Rate Blood Pressure 136/94 H 134/99 H Pulse Oximetry 96 Oxygen Delivery Method 08/06/25 10:20 08/06/25 10:20 08/06/25 10:30 Temperature Pulse Rate 121 H Respiratory Rate Blood Pressure 126/88 173/99 H Pulse Oximetry 96 Oxygen Delivery Method 08/06/25 10:59 08/06/25 11:00 08/06/25 11:30 Temperature Pulse Rate 105 H 95 H 100 H Respiratory Rate 19 Blood Pressure Pulse Oximetry 96 98 95 Oxygen Delivery Method 08/06/25 11:31 08/06/25 11:31 08/06/25 12:00 Temperature Pulse Rate 101 H 100 H Respiratory Rate 20 19 Blood Pressure 134/69 Pulse Oximetry 95 94 Oxygen Delivery Method 08/06/25 12:00 08/06/25 12:13 08/06/25 12:13 Temperature Pulse Rate 101 H Respiratory Rate 19 Blood Pressure 126/57 L 125/60 Pulse Oximetry 96 Oxygen Delivery Method 08/06/25 12:30 08/06/25 12:47 08/06/25 12:47 Temperature Pulse Rate 118 H 106 H Respiratory Rate 24 Blood Pressure 144/86 H Pulse Oximetry 96 Oxygen Delivery Method 08/06/25 13:00 08/06/25 13:00 08/06/25 13:30 Temperature Pulse Rate 114 H 97 H Respiratory Rate 23 17 Blood Pressure 138/93 H Pulse Oximetry 98 97 Oxygen Delivery Method Room Air 08/06/25 13:30 08/06/25 14:00 08/06/25 14:00 Temperature Pulse Rate 94 H Respiratory Rate 19 Blood Pressure 121/81 109/65 Pulse Oximetry 96 Oxygen Delivery Method 08/06/25 14:30 08/06/25 14:30 Temperature Pulse Rate 92 H Respiratory Rate 19 Blood Pressure 104/67 Pulse Oximetry 97 Oxygen Delivery Method MDM - Alcohol Lab Data 08/06/25 08:35 08/06/25 08:35 Labs: Lab Results 08/06/25 08/06/25 08/06/25 Range/Units 08:35 09:36 09:36 WBC 13.4 H D (4.5-11.0) X10^3/uL RBC 5.03 (4.5-5.9) X10^6/uL Hgb 16.6 (13.5-17.5) g/dL Hct 45.9 (41-53) % MCV 91.3 (80-100) fL MCH 33.1 (26-34) PG MCHC 36.2 H (30-36) % RDW 13.6 (11.6-14.8) % Plt Count 295 (150-400) X10^3/uL Neut % (Auto) Not Reportable Lymph % (Auto) Not Reportable Mineral % (Auto) Not Reportable Eos % (Auto) Not Reportable Baso % (Auto) Not Reportable Lymph # (Auto) Not Reportable Mineral # (Auto) Not Reportable Baso # (Auto) Not Reportable Total Counted 100 Seg Neutrophils % 66.0 (38-70) % Lymphocytes % (Manual) 13.0 L (25-45) % Atypical Lymphs % 12.0 H ( - 0) % Monocytes % (Manual) 5.0 (2-11) % Eosinophils % (Manual) 1.0 L (2-4) % Basophils % (Manual) 3.0 H (0-1) % Neutrophils # (Manual) 8844 H (9229-7215) /uL RBC Morphology Normal morphology Sodium 139 (137-145) mmol/L Potassium 4.8 (3.4-5.1) mmol/L Chloride 102 (98-107) mmol/L Carbon Dioxide 24 (22-32) mmol/L BUN 5 L (9-20) mg/dL Creatinine 0.71 (0.66-1.25) mg/dL Estimated GFR > 60 (>60) mL/min BUN/Creatinine Ratio 7.0 (6-22) Glucose 124 H (70-99) mg/dL Calcium 8.4 (8.4-10.2) mg/dL Total Bilirubin 0.6 (0.2-1.3) mg/dL AST 39 (17-59) IU/L ALT 26 (<50) IU/L Alkaline Phosphatase 72 (38-126) U/L Total Protein 6.8 (6.3-8.2) g/dL Albumin 4.3 (3.5-5.0) g/dL Globulin 2.5 (1.7-4.1) g/dL Albumin/Globulin Ratio 1.7 (1.0-2.8) TSH 0.09 L D (0.47-4.68) uIU/mL Free T4 1.59 (0.78-2.19) ng/dL Urine Color Yellow Urine Appearance Clear Urine pH 6.5 Normal (4.5-8.0) Ur Specific [place] <=1.005 (1.000-1.035) Urine Protein Negative (Negative) Urine Glucose (UA) Negative (Negative) g/dL Urine Ketones Negative (NEGATIVE) Urine Occult Blood Negative (Negative) Urine Nitrate Negative (Negative) Urine Bilirubin Negative (NEGATIVE) Urine Urobilinogen 0.2 (0.2) E.U./dL Ur Leukocyte Esterase Negative (NEGATIVE) Urine RBC None seen (0-5/HPF) Urine WBC None seen (0-5/HPF) Ur Squamous Epith Cells None seen (0-5/HPF) Urine Bacteria None seen (None) Ur Culture Indicated? Cult not indicated Vol Urine Centrifuged 10ml (spun) U Opiates 300ng/mL cut Negative (Negative) Ur Oxycodone Screen Negative (Negative) Urine Methadone Screen Negative (Negative) Ur Barbiturates Screen Negative (Negative) U Tricyclic Antidepress Negative (Negative) Ur Phencyclidine Scrn Negative (Negative) Ur Amphetamines Screen Negative (Negative) U Methamphetamines Scrn Negative (Negative) Ur MDMA Scrn (Ecstasy) Negative (Negative) U Benzodiazepines Scrn Negative (Negative) Urine Cocaine Screen Negative (Negative) U Marijuana (THC) Screen Positive H (Negative) Urine Specific [place] Normal (Normal) Ethyl Alcohol 393 H (<10) mg/dL Ur Creatinine Normal (Normal) Imaging Data Chest x-ray: Radiologist's Impressoin: [address] [address] XRay Report Signed Patient: Paulo Wolff MR#: [id number] : 1985 Acct:[id number] Age/Sex: 40 / M Date of Service: 08/06/25 Loc: 90A-1 Accession Number: [id number] Procedure: XR chest 1V Ordering Provider: Cornelio Atkins D.O. PROCEDURE: XR CHEST 1V INDICATIONS: PICC LINE PLACEMENT TECHNIQUE: One view of the chest was acquired. COMPARISON: [facility], CR, XR CHEST FOR PICC 1V, 08/05/2025, 11:18. [facility], CR, XR CHEST 1V, 08/05/2025, 7:56. FINDINGS: Surgical changes and devices: Right upper extremity approach PICC tip projects over the low SVC. Lungs and pleura: Lungs are clear. No pleural effusions or pneumothorax. Mediastinum: Mediastinal contours appear normal. Heart size is normal. Bones and chest wall: No suspicious bony lesions. Overlying soft tissues appear unremarkable. IMPRESSION: Right upper extremity approach PICC tip projects over the low SVC. MDM Narrative Medical decision making narrative: All lab work, vital signs, nurse triage note, medication list, previous ER visits, and all imaging studies reviewed. Patient received Versed 2.5 mg IMx3, Ativan 2 mg IM, and now phenobarbital 260 mg IV. WBC 13.4 hemoglobin 16.6 platelet 295 sodium 139 potassium 4.8 CO2 24 chloride 102 BUN 5 creatinine 0.71 glucose 124 LFTs were normal. TSH 0.09 free T4 1.59 marijuana + alcohol 393. Case d/w who has graciously accepted the patient for inpatient admission. Differential dx alcohol intoxication, polysubstance use/abuse, withdrawal. Case d/w who has graciously accepted pt for inpatient admission. Discharge Plan Departure Patient Disposition: Admitted As Inpatient Clinical Impression: Alcohol withdrawal Qualifiers: Complication of substance-induced condition: with unspecified complication Q ualified Code(s): F10.939 - Alcohol use, unspecified with withdrawal, unspecified Admit Date/Time: 08/06/25 16:16 Admit Provider: Lluvia Ku
--- NOTE | 2025-08-06 09:30 | PC.NURSE ---
Fellow RN attempted 4 ultrasound IV attempts and this RN attempted twice. Provider informed and ordered IM lorazepam 2mg. This RN placed verbal order and this RN fufilled order.
[2025-08-06 10:03] LABS: Appearance Urine UA CLEAR; Bilirubin Urine UA NEGATIVE (NEGATIVE); Color Urine UA YELLOW; Glucose Urine UA NEGATIVE (Negative); Ketones Urine UA NEGATIVE (NEGATIVE); Leukocyte Esterase Urine UA NEGATIVE (NEGATIVE); Nitrite Urine UA NEGATIVE (Negative); Occult Blood Urine UA NEGATIVE (Negative); Protein Urine UA NEGATIVE (Negative); Specific Gravity Urine UA <=1.005 (1.000-1.035); Urobilinogen Urine UA 0.2 E.U./dL (0.2); pH Urine UA 6.5 (4.5-8.0)
[2025-08-06 10:05] LABS: Hematocrit 45.9 % (41-53); Hemoglobin 16.6 g/dL (13.5-17.5); Mean Corpuscular HGB Conc 36.2 % (30-36); Mean Corpuscular Hemoglobin 33.1 PG (26-34); Mean Corpuscular Volume 91.3 fL (80-100); Platelet Count 295 X10^3/uL (150-400)
[2025-08-06 10:06] LABS: Add Manual Diff / Slide Review YES
[2025-08-06 10:07] LABS: Ur Creatinine Normal (Normal); Ur Specific Gravity Normal (Normal); Urine THC Positive (Negative); Urine pH Normal (Normal)
[2025-08-06 10:08] LABS: Urine MDMA Negative (Negative); Urine Methamphetamines Negative (Negative); Urine Tricyclic Antidepressant Negative (Negative)
[2025-08-06 10:08] LABS: Alanine Aminotransferase 26 IU/L (<50); Albumin 4.3 g/dL (3.5-5.0); Albumin Globulin Ratio 1.7 (1.0-2.8); Alkaline Phosphatase 72 U/L (38-126); Blood Urea Nitrogen 5 mg/dL (9-20); Calcium 8.4 mg/dL (8.4-10.2); Carbon Dioxide 24 mmol/L (22-32); Chloride 102 mmol/L (98-107); Estimated Glomerular Filt Rate > 60 mL/min (>60); Globulin 2.5 g/dL (1.7-4.1); Glucose 124 mg/dL (70-99); Potassium 4.8 mmol/L (3.4-5.1); Sodium 139 mmol/L (137-145); Total Protein 6.8 g/dL (6.3-8.2)
[2025-08-06 10:10] LABS: Culture Indicated Urine Cult Not Indicated
[2025-08-06 10:18] LABS: Atypical Lymphocytes Percent 12.0 %; Basophils Percent Manual 3.0 % (0-1); Eosinophils Percent Manual 1.0 % (2-4); Lymphocytes Percent Manual 13.0 % (25-45); Monocytes Percent Manual 5.0 % (2-11); Neutrophils Absolute Manual 8844 /uL (3000-5900); RBC Morphology Normal Morphology; Segmented Neutrophils Percent 66.0 % (38-70); Total Cells Counted 100
[2025-08-06 10:22] LABS: Ethanol (ETOH) 393 mg/dL (<10); HEMOLYSIS 96 (0-50)
[2025-08-06 10:42] LABS: TSH w/ Reflex to FT4 0.09 uIU/mL (0.47-4.68)
[2025-08-06] MEDS: MIDAZOLAM 5 MG/ML VIAL 2.5 MG IM ×5 (10:45→16:27)
[2025-08-06 11:07] LABS: Free T4, Direct Thyroxine 1.59 ng/dL (0.78-2.19)
--- NOTE | 2025-08-06 12:34 | PC.NURSE ---
IV attempted in right AC and failed
--- NOTE | 2025-08-06 12:43 | PC.NURSE ---
Provider informed of third nurse failure to place ultrasound IV. Provider asked to call for PICC line placed. IS TECHNICIAN called outside approved vendor for PICC line placement. PICC line placement nurse called this RN at 12:41 and states that they are in [place] but will come as soon as poissible and expects to be here in 3-[address] Atkins notified.
[2025-08-06] MEDS: KETOROLAC 30 MG/ML VIAL IM (13:11)
--- NOTE | 2025-08-06 15:55 | DI.RAD.S_ITS ---
PROCEDURE: XR CHEST 1V INDICATIONS: PICC LINE PLACEMENT TECHNIQUE: One view of the chest was acquired. COMPARISON: [facility], CR, XR CHEST FOR PICC 1V, 08/05/2025, 11:18. [facility], CR, XR CHEST 1V, 08/05/2025, 7:56. FINDINGS: Surgical changes and devices: Right upper extremity approach PICC tip projects over the low SVC. Lungs and pleura: Lungs are clear. No pleural effusions or pneumothorax. Mediastinum: Mediastinal contours appear normal. Heart size is normal. Bones and chest wall: No suspicious bony lesions. Overlying soft tissues appear unremarkable. IMPRESSION: Right upper extremity approach PICC tip projects over the low SVC. Dictated by: Robby Stephens M.D. on 08/06/2025 at 15:44 Approved by: Robby Stephens M.D. on 08/06/2025 at 15:45
[2025-08-06] MEDS: NICOTINE 21 MG PATCH TOP (15:58)
[2025-08-06] MEDS: MIDAZOLAM 5 MG/5 ML VIAL IV (17:04)
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
--- NOTE | 2025-08-06 17:05 | PC.NURSE ---
Patient had PROGRAMMABLE LOGIC CONTROLLER ASSEMBLER with him at patient bedside. Patient exhibiting increased agitation and anxiety This RN had hakan goodrich called at 16:44. Shortly afterwards patient pushed past PROGRAMMABLE LOGIC CONTROLLER ASSEMBLER and left department and went through waiting room and into the parking lot. This RN and civil geotechnical engineer followed patient and patient was always in site of this RN. Patient was convinced to return by this RN to the department. Patient redirected onto his bed and soothed to relax. Dr. Atkins immediately notified. Provider verified PiCC line placement and ordered phenobarbital and medication administered. Patient still exhibiting agitation and anxiety and provider gave verbal order order 5mg of versed. Medication administered.
[2025-08-06 17:23] LABS: Magnesium 1.8 mg/dL (1.6-2.3)
--- NOTE | 2025-08-06 17:32 | PC.ADMIT ---
[id number] Admission Note: Pt arrived to room 227 at 1715, fatigued but following commands. Able to position self to new bed. HR elevated, BP WDL. CIWA 8. Provider and social work at bedside. Care ongoing. The patient,Paulo Wolff,40 y/o, was given written information regarding hospital policies, unit procedures and contact persons. Patient's smoking status: Current some day smoker. Vital Signs - 8 hr 08/06/25 10:00 08/06/25 10:00 08/06/25 10:20 Pulse Rate 113 H Respiratory Rate Blood Pressure 134/99 H 126/88 Pulse Oximetry 96 Oxygen Delivery Method 08/06/25 10:20 08/06/25 10:30 08/06/25 10:59 Pulse Rate 121 H 105 H Respiratory Rate Blood Pressure 173/99 H Pulse Oximetry 96 96 Oxygen Delivery Method 08/06/25 11:00 08/06/25 11:30 08/06/25 11:31 Pulse Rate 95 H 100 H 101 H Respiratory Rate 19 20 Blood Pressure Pulse Oximetry 98 95 95 Oxygen Delivery Method 08/06/25 11:31 08/06/25 12:00 08/06/25 12:00 Pulse Rate 100 H Respiratory Rate 19 Blood Pressure 134/69 126/57 L Pulse Oximetry 94 Oxygen Delivery Method 08/06/25 12:13 08/06/25 12:13 08/06/25 12:30 Pulse Rate 101 H 118 H Respiratory Rate 19 Blood Pressure 125/60 Pulse Oximetry 96 Oxygen Delivery Method 08/06/25 12:47 08/06/25 12:47 08/06/25 13:00 Pulse Rate 106 H 114 H Respiratory Rate 24 23 Blood Pressure 144/86 H Pulse Oximetry 96 98 Oxygen Delivery Method Room Air 08/06/25 13:00 08/06/25 13:30 08/06/25 13:30 Pulse Rate 97 H Respiratory Rate 17 Blood Pressure 138/93 H 121/81 Pulse Oximetry 97 Oxygen Delivery Method 08/06/25 14:00 08/06/25 14:00 08/06/25 14:30 Pulse Rate 94 H 92 H Respiratory Rate 19 19 Blood Pressure 109/65 Pulse Oximetry 96 97 Oxygen Delivery Method 08/06/25 14:30 08/06/25 15:00 08/06/25 15:00 Pulse Rate 98 H Respiratory Rate 19 Blood Pressure 104/67 106/66 Pulse Oximetry 98 Oxygen Delivery Method 08/06/25 15:13 08/06/25 15:13 08/06/25 15:30 Pulse Rate 114 H 106 H Respiratory Rate 15 Blood Pressure 153/95 H Pulse Oximetry 96 98 Oxygen Delivery Method 08/06/25 16:00 08/06/25 16:07 08/06/25 16:07 Pulse Rate 104 H 110 H Respiratory Rate Blood Pressure 149/85 H Pulse Oximetry 97 96 Oxygen Delivery Method 08/06/25 16:30 08/06/25 16:30 08/06/25 17:07 Pulse Rate 118 H 111 H Respiratory Rate Blood Pressure 127/94 H Pulse Oximetry 98 99 Oxygen Delivery Method
[2025-08-06] MEDS: dexmedeTOMIDine in 0.9 % NaCL 400 MCG/100 ML PLAST..BAG 5.205 MCG IV (17:41)
[2025-08-06] MEDS: SODIUM CHLORIDE 0.9% 1,000 ML 100 ML IV (17:58)
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
[2025-08-06] MEDS: AZITHROMYCIN 500 MG in DEXTROSE 5% IN WATER 250 ML 250 MG IV (22:17)
[2025-08-07] VITALS (24 sets, daily range): BP systolic 119–153; BP diastolic 74–99; PULSE 58–81; RESP 14–23; TEMP 36.5–37.1; O2SAT 93–96
[2025-08-07] MEDS: dexmedeTOMIDine in 0.9 % NaCL 400 MCG/100 ML PLAST..BAG 10.41 MCG IV ×2 (00:36→09:46)
[2025-08-07] MEDS: SODIUM CHLORIDE 0.9% 1,000 ML 100 ML IV (03:38)
[2025-08-07 05:35] LABS: Add Manual Diff / Slide Review NO; Hematocrit 38.8 % (41-53); Hemoglobin 13.9 g/dL (13.5-17.5); Lymphocytes Absolute Auto 2200 /uL (1100-4500); Mean Corpuscular HGB Conc 35.8 % (30-36); Mean Corpuscular Hemoglobin 32.7 PG (26-34); Mean Corpuscular Volume 91.5 fL (80-100); Platelet Count 197 X10^3/uL (150-400)
[2025-08-07 05:47] LABS: Alanine Aminotransferase 20 IU/L (<50); Albumin 3.1 g/dL (3.5-5.0); Albumin Globulin Ratio 1.3 (1.0-2.8); Alkaline Phosphatase 64 U/L (38-126); Blood Urea Nitrogen 6 mg/dL (9-20); Calcium 8.0 mg/dL (8.4-10.2); Carbon Dioxide 28 mmol/L (22-32); Chloride 102 mmol/L (98-107); Estimated Glomerular Filt Rate > 60 mL/min (>60); Globulin 2.3 g/dL (1.7-4.1); Glucose 97 mg/dL (70-99); HEMOLYSIS 19 (0-50); Magnesium 1.5 mg/dL (1.6-2.3); Potassium 4.1 mmol/L (3.4-5.1); Sodium 136 mmol/L (137-145); Total Protein 5.4 g/dL (6.3-8.2)
--- NOTE | 2025-08-07 08:13 | PM.PN.1 ---
Subjective Subjective Interval history: S: He was awake, and alert. He requests Librium. He was still having shakes but denies hallucinations. O: NAD, alert and oriented. Fluent speech. Lungs are clear, normal rate and effort. Heart is regular, no murmur gallop or rub. Abdomen is soft, non distended. Extremities are free of edema. A/P: 1. Acute alcohol intoxication with agitated delirium, resolved. Patient presented with an alcohol level of 0.393. When he left the hospital, he drank 2 gal of vodka last night. Multiple code Jose Juan were called today which resulted in a significant number of medications to help calm him down and reduce his agitation. He remains at very high risk for self-injury and staff harm. 2. Early alcohol withdrawal in a patient with history of severe withdrawal including seizures, improved. Continue IV phenobarbital as well as the CIWA score. Precedex will be available as needed as well. Multivitamin thiamine have been ordered. Will check a magnesium level in the morning. 3. Upper respiratory infection, stable. He was receiving IV azithromycin. He had his 1st dose yesterday. We will give him a dose today and tomorrow to complete 3 days total. 4. Suppressed TSH, stable. His free T4 was at the upper limits of normal. He will require outpatient follow-up on this 5. Frequent history of leaving the hospital against medical advice I did discuss his case with the ER social services technician. She advises consideration of invoking [place]edar's law. Patient is at risk of grave harm of self and others especially based on the incidents today. She recommends consideration of chemical restraints if he attempts to leave Against Medical Advice again. This will need to be discussed further during multidisciplinary rounds. PLAN: -add Librium 25 t.i.d. scheduled. -wean Precedex. -two more doses of phenobarbital. Code status Full Prophylaxis Low Tim score Exam Vital Signs (past 8 hours): - 08/07/25 01:00 08/07/25 01:30 08/07/25 02:00 Temperature Pulse Rate 73 69 70 Respiratory Rate 19 19 18 Blood Pressure 120/78 128/83 121/82 Pulse Oximetry 94 94 93 Oxygen Delivery Method Oxygen Flow Rate 0 0 0 08/07/25 02:30 08/07/25 03:00 08/07/25 04:00 Temperature 97.7 F Pulse Rate 66 63 63 Respiratory Rate 16 19 18 Blood Pressure 139/86 137/91 H 128/92 H Pulse Oximetry 94 94 93 Oxygen Delivery Method Oxygen Flow Rate 0 0 0 08/07/25 04:30 08/07/25 05:00 08/07/25 05:30 Temperature Pulse Rate 69 61 62 Respiratory Rate 18 17 18 Blood Pressure 125/92 H 133/94 H 135/90 Pulse Oximetry 93 94 95 Oxygen Delivery Method Oxygen Flow Rate 0 0 0 08/07/25 06:00 08/07/25 06:00 08/07/25 06:30 Temperature Pulse Rate 70 67 Respiratory Rate 19 19 Blood Pressure 149/92 H 139/89 Pulse Oximetry 94 95 Oxygen Delivery Method Room Air Oxygen Flow Rate 0 0 08/07/25 06:35 Temperature Pulse Rate 62 Respiratory Rate 14 Blood Pressure Pulse Oximetry Oxygen Delivery Method Oxygen Flow Rate Oxygen Delivery Method Room Air Oxygen Flow Rate 0 Objective Labs 08/07/25 05:14 08/07/25 05:14 Labs: Laboratory Results - last 24 hr 08/06/25 08/06/25 08/06/25 08:35 09:36 09:36 WBC 13.4 H D RBC 5.03 Hgb 16.6 Hct 45.9 MCV 91.3 MCH 33.1 MCHC 36.2 H RDW 13.6 Plt Count 295 Neut % (Auto) Not Reportable Lymph % (Auto) Not Reportable [place] % (Auto) Not Reportable Eos % (Auto) Not Reportable Baso % (Auto) Not Reportable Neut # (Auto) Lymph # (Auto) Not Reportable [place] # (Auto) Not Reportable Eos # (Auto) Baso # (Auto) Not Reportable Total Counted 100 Seg Neutrophils % 66.0 Lymphocytes % (Manual) 13.0 L Atypical Lymphs % 12.0 H Monocytes % (Manual) 5.0 Eosinophils % (Manual) 1.0 L Basophils % (Manual) 3.0 H Neutrophils # (Manual) 8844 H RBC Morphology Normal morphology Sodium 139 Potassium 4.8 Chloride 102 Carbon Dioxide 24 BUN 5 L Creatinine 0.71 Estimated GFR > 60 BUN/Creatinine Ratio 7.0 Glucose 124 H Calcium 8.4 Magnesium 1.8 Total Bilirubin 0.6 AST 39 ALT 26 Alkaline Phosphatase 72 Total Protein 6.8 Albumin 4.3 Globulin 2.5 Albumin/Globulin Ratio 1.7 TSH 0.09 L D Free T4 1.59 Urine Color Yellow Urine Appearance Clear Urine pH 6.5 Normal Ur Specific [place] <=1.005 Urine Protein Negative Urine Glucose (UA) Negative Urine Ketones Negative Urine Occult Blood Negative Urine Nitrate Negative Urine Bilirubin Negative Urine Urobilinogen 0.2 Ur Leukocyte Esterase Negative Urine RBC None seen Urine WBC None seen Ur Squamous Epith Cells None seen Urine Bacteria None seen Ur Culture Indicated? Cult not indicated Vol Urine Centrifuged 10ml (spun) U Opiates 300ng/mL cut Negative Ur Oxycodone Screen Negative Urine Methadone Screen Negative Ur Barbiturates Screen Negative U Tricyclic Antidepress Negative Ur Phencyclidine Scrn Negative Ur Amphetamines Screen Negative U Methamphetamines Scrn Negative Ur MDMA Scrn (Ecstasy) Negative U Benzodiazepines Scrn Negative Urine Cocaine Screen Negative U Marijuana (THC) Screen Positive H Urine Specific [place] Normal Ethyl Alcohol 393 H Ur Creatinine Normal 08/07/25 05:14 WBC 7.4 RBC 4.24 L Hgb 13.9 Hct 38.8 L MCV 91.5 MCH 32.7 MCHC 35.8 RDW 13.6 Plt Count 197 Neut % (Auto) 55.3 Lymph % (Auto) 30.3 [place] % (Auto) 9.2 Eos % (Auto) 4.3 H Baso % (Auto) 0.9 Neut # (Auto) 4100 Lymph # (Auto) 2200 [place] # (Auto) 700 Eos # (Auto) 300 Baso # (Auto) 100 Total Counted Seg Neutrophils % Lymphocytes % (Manual) Atypical Lymphs % Monocytes % (Manual) Eosinophils % (Manual) Basophils % (Manual) Neutrophils # (Manual) RBC Morphology Sodium 136 L Potassium 4.1 Chloride 102 Carbon Dioxide 28 BUN 6 L Creatinine 0.65 L Estimated GFR > 60 BUN/Creatinine Ratio 9.2 Glucose 97 Calcium 8.0 L Magnesium 1.5 L Total Bilirubin 0.5 AST 23 ALT 20 Alkaline Phosphatase 64 Total Protein 5.4 L Albumin 3.1 L Globulin 2.3 Albumin/Globulin Ratio 1.3 TSH Free T4 Urine Color Urine Appearance Urine pH Ur Specific [place] Urine Protein Urine Glucose (UA) Urine Ketones Urine Occult Blood Urine Nitrate Urine Bilirubin Urine Urobilinogen Ur Leukocyte Esterase Urine RBC Urine WBC Ur Squamous Epith Cells Urine Bacteria Ur Culture Indicated? Vol Urine Centrifuged U Opiates 300ng/mL cut Ur Oxycodone Screen Urine Methadone Screen Ur Barbiturates Screen U Tricyclic Antidepress Ur Phencyclidine Scrn Ur Amphetamines Screen U Methamphetamines Scrn Ur MDMA Scrn (Ecstasy) U Benzodiazepines Scrn Urine Cocaine Screen U Marijuana (THC) Screen Urine Specific [place] Ethyl Alcohol Ur Creatinine PFSH Medical History Alcohol abuse Social History household members: family Smoking Status: Current some day smoker alcohol intake: current Assessment & Plan Time-Based Coding :: [TOTAL MINUTES] spent with patient and on the chart (including review of chart, obtaining history, exam, reviewing outside data, placing orders, documenting exam and treatment plan, and counseling patient) on [DATE]. Quality VTE Deep Vein Thrombosis/Pulmonary Embolism Present on Admission: No
[2025-08-07] MEDS: THIAMINE 100 MG in SODIUM CHLORIDE 0.9% 100 ML 404 MG IV (09:04)
[2025-08-07] MEDS: PANTOPRAZOLE 40 MG VIAL IV (09:04)
[2025-08-07] MEDS: MULTIVITAMIN 1 TABLET 1 TAB PO (09:04)
[2025-08-07] MEDS: MAGNESIUM CHLORIDE 64 MG TABLET 128 MG PO (09:48)
--- NOTE | 2025-08-07 12:14 | PC.NURSE ---
Addendum entered by Yuli Mac RN 08/07/25 12:57: Per provider Dr. Sheridan, additional 25mg chlordiaepoxide HCI PO administered prior to pt departure. This RN educated pt on withdrawal symptoms, seizure prevention, medication, and follow up appt. Pt attempted to remove own PICC during education. Instructed pt to pickup driver prescriptions at preferred pharmacy scripts were sent. PICC removed per policy but pt declined to lay down for required timeframe after removal. Pt ambulated to street with dad at approximately 1241. Original Note: Day shift: Pt A&Ox3. RASS 0 to +1. Dad at bedside. Pt ambulated to BR SBA, unsteady gait. Pt and dad provided playing cards. Pt inquired about medications, pt educated on medications for withdrawal and process of withdrawal timeframe. Dad at bedside. Pt raised voice, bedside table seen from door thrown toward wall. Dad walked away from room. Pt stated he attempted to stand and knocked table to floor. Pt requesting doctor, states he wants to leave. Provider at bedside. Security at nursing station, provider at bedside.
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
--- NOTE | 2025-08-07 12:53 | CM.DPC ---
DCP Discharge Per MD, pt remains on some withdrawal medications today and plan is to wean and initially did not feel pt was ready to discharge today but pt became more agitated and requesting to discharge and remained agreeable to wait for discharge pwk and father bedside. Prior to discharge orders, SW met bedside with pt (father had left for a break and was not bedside at the time) and explained role and pt confirms that he has hx of one Inpt ETOH tx and has mostly been utilizing outpt ETOH tx and AA meetings and felt he had been doing really well until this recent relapse. Pt feels his trigger was working 70 hours a week and pushing myself too hard and not going to meetings. SW inquired if pt would be agreeable to trying a new approach like Inpt tx again or intensive outpt and pt states he feels work would be a barrier to these options at this time and currently declines. Pt confirms he lives in [facility] but unclear why pt has been to [facility] multiple times as he states his dad does not live locally but seems to be conflicting information from previous assessments. Pt then talked to MD with father bedside and decision to discharge and father would provide transport. SW called [facility] Crisis Line and inquired about criteria for DCR to be dispatched for [facility] and pt would either need to be in a significant mental health crisis Along with their substance use or show signs that if they continue to use substances that they are likely imminently in danger of . Helpful to have the proof of pt's multiple admissions for withdrawal/substance use as well. Pt only been to [address] and would need to show his other admissions to other hospitals as well. Since pt discharging today and does not appear to meet this criteria at this time, DCR was not dispatched. JUAN FRANCISCO Dejesus
== END 2025-08-07 12:41 | disposition home or self-care (01) | DRG 775 ==
LOC: ED 08:27 → AC 16:17 → ICU 17:02
PROVIDERS: Admitting Provider Family Medicine; Emergency Provider Family Medicine; Referring Provider Family Medicine; Visit Provider Family Medicine
DX: F10.231 Alcohol dependence with withdrawal delirium (principal); F10.221 Alcohol dependence with intoxication delirium; J06.9 Acute upper respiratory infection, unspecified; R94.6 Abnormal results of thyroid function studies; F17.200 Nicotine dependence, unspecified, uncomplicated; Y90.8 Blood alcohol level of 240 mg/100 ml or more
CPT/HCPCS: 36415; 36573; 36592; 71045; 80053; 80305; 80320; 80329; 81001; 81003; 83735; 84439; 84443; 85007; 85025; 87633; 87797; 94640; 96361; 96372; 96374; 96375; 96376; 99284; G0480; J1644; J1790; J1885; J2060; J2250; J2470; J2560; J7030; J7050; J7060; J7613

== ENCOUNTER 2025-08-24 16:50 | Emergency (ER) | payer OTHER, SELFPAY ==
[2025-08-06 17:50] VITALS: BMI 29.6
[2025-08-24] VITALS (15 sets, daily range): BP systolic 117–146; BP diastolic 81–91; PULSE 107–119; RESP 16–68; TEMP 36.8; O2SAT 89–96; BMI 29.2
[2025-08-24 18:35] LABS: INR 0.9 (0.9-1.3); Prothrombin Time 10.4 SECONDS (9.4-12.5)
--- NOTE | 2025-08-24 18:40 | ED.ALCOHOL ---
HPI - Alcohol General Chief Complaint: Toxicology Problem Stated Complaint: alcohol withdrawal, vomiting blood Time Seen by Provider: 08/24/25 17:45 Source: patient Mode of arrival: Wheelchair History of Present Illness HPI narrative: 40-year-old male who has a history of alcohol use abuse disorder and drinks according to his father about 1.5-2 L of vodka daily. His last drink was approximately 2 hours ago. He is a bit incoherent currently. History is difficult to obtain. Related Data Previous Rx's ?Medication ?Instructions ?Recorded ondansetron 4 mg disintegrating 4 mg PO Q6H PRN nausea and 10/25/19 tablet vomiting #14 tabs amoxicillin 875 mg-potassium 1 tab PO BID #14 tabs 08/07/25 clavulanate 125 mg tablet chlordiazepoxide HCl 25 mg capsule 25 mg PO Q8-12H PRN anxiety #14 08/07/25 caps Allergies Allergy/AdvReac Type Severity Reaction Status Date / Time No Known Drug Allergies Allergy Verified 08/06/25 08:40 Review of Systems Review of Systems ROS Unobtainable: All systems reviewed & are unremarkable except as noted in HPI and below Patient History Medical History Alcohol abuse Social History household members: family Smoking Status: Current every day smoker alcohol intake: current Smoking Status: Current every day smoker tobacco type: cigarettes alcohol intake frequency: other Alcohol type: hard liquor Exam Narrative Exam Narrative: General: Patient had pain as if intoxicated blood resting comfortably. Somewhat incoherent. Head: normocephalic, atraumatic, HEENT: Pupils equal round reactive, eyes tracking well, neck supple, no JVD Heart: regular rate and rhythm, no murmurs, rubs, or gallops heard Lungs: clear to auscultation, no adventitious sounds Abdomen: soft , nontender, nondistended, positive bowel sounds Less responsive but arousable. Initial Vital Signs Initial Vital Signs: Vital Signs Temperature 98.3 F 08/24/25 16:58 Pulse Rate 119 H 08/24/25 16:58 Respiratory Rate 20 08/24/25 16:58 Blood Pressure 135/81 08/24/25 16:58 Pulse Oximetry 95 08/24/25 16:58 Oxygen Delivery Method Room Air 08/24/25 16:58 Course Orders Ordered: ED Orders 08/25/25 03:11 Ethanol (ETOH) Stat Lorazepam (Lorazepam 2 Mg/Ml Inj) 0 mg IV CIWAPRN PRN; Protocol PRN Reason: Alcohol Withdrawal Last Admin: 08/25/25 00:36 Dose: 2 mg Documented By: Admin: 08/24/25 22:02 Dose: 1 mg Documented By: TIFFANY Lorazepam (Lorazepam 1 Mg Tablet) 0 mg PO CIWAPRN PRN; Protocol PRN Reason: Alcohol Withdrawal Multivitamins (Multivitamin 1 Tablet) 1 tab PO DAILY CORNEL Ondansetron HCl (Ondansetron 4 Mg/2 Ml Inj) 4 mg IV Q6HR PRN PRN Reason: Nausea And Vomiting Discontinued Medications Sodium Chloride (Normal Saline 0.9%) 1,000 mls @ 1,000 mls/hr IV BOLUS ONE Stop: 08/24/25 19:51 Last Infusion: 08/24/25 23:45 Dose: Infused Documented By: Admin: 08/24/25 19:06 Dose: 1,000 mls/hr Documented By: TIFFANY Vital Signs Vital signs: Vital Signs - 8 hr 08/24/25 23:00 08/25/25 00:32 08/25/25 00:32 Temperature Pulse Rate 107 H Respiratory Rate Blood Pressure 125/76 Blood Pressure [Left Arm] Pulse Oximetry 91 92 Oxygen Delivery Method 08/25/25 01:00 08/25/25 01:00 08/25/25 01:30 Temperature Pulse Rate 95 H Respiratory Rate Blood Pressure 105/53 L 117/62 Blood Pressure [Left Arm] Pulse Oximetry 91 Oxygen Delivery Method 08/25/25 01:30 08/25/25 02:00 08/25/25 02:00 Temperature Pulse Rate 94 H 94 H Respiratory Rate Blood Pressure 123/81 Blood Pressure [Left Arm] Pulse Oximetry 91 89 L Oxygen Delivery Method 08/25/25 02:30 08/25/25 02:30 08/25/25 03:00 Temperature Pulse Rate 97 H 121 H Respiratory Rate Blood Pressure 108/70 Blood Pressure [Left Arm] Pulse Oximetry 91 93 Oxygen Delivery Method 08/25/25 03:01 08/25/25 03:01 08/25/25 03:30 Temperature Pulse Rate 121 H 93 H Respiratory Rate Blood Pressure 146/102 H Blood Pressure [Left Arm] Pulse Oximetry 94 95 Oxygen Delivery Method Room Air 08/25/25 03:31 08/25/25 03:31 08/25/25 04:00 Temperature Pulse Rate 94 H 90 Respiratory Rate Blood Pressure 111/70 Blood Pressure [Left Arm] Pulse Oximetry 94 94 Oxygen Delivery Method Room Air 08/25/25 04:00 08/25/25 04:30 08/25/25 04:31 Temperature Pulse Rate 99 H 100 H Respiratory Rate Blood Pressure 106/68 Blood Pressure [Left Arm] Pulse Oximetry 93 93 Oxygen Delivery Method 08/25/25 04:31 08/25/25 04:41 08/25/25 05:00 Temperature 98.4 F Pulse Rate 98 H Respiratory Rate 20 Blood Pressure 140/88 145/79 H Blood Pressure [Left Arm] 140/88 Pulse Oximetry 95 Oxygen Delivery Method Room Air 08/25/25 05:00 08/25/25 05:30 08/25/25 05:30 Temperature Pulse Rate 91 H 90 Respiratory Rate Blood Pressure 135/63 Blood Pressure [Left Arm] Pulse Oximetry 93 93 Oxygen Delivery Method Room Air MDM - Alcohol Lab Data 08/24/25 18:10 08/24/25 19:49 Labs: Lab Results 08/24/25 08/24/25 08/25/25 Range/Units 18:10 19:49 03:11 WBC 6.5 (4.5-11.0) X10^3/uL RBC 4.78 (4.5-5.9) X10^6/uL Hgb 15.9 (13.5-17.5) g/dL Hct 45.1 (41-53) % MCV 94.4 (80-100) fL MCH 33.2 (26-34) PG MCHC 35.1 (30-36) % RDW 14.2 (11.6-14.8) % Plt Count 260 (150-400) X10^3/uL Neut % (Auto) 50.5 (50-75) % Lymph % (Auto) 38.9 (25-40) % [place] % (Auto) 7.8 (3-14) % Eos % (Auto) 1.5 L (2-4) % Baso % (Auto) 1.3 (0-2) % Neut # (Auto) 3300 (7465-4716) /uL Lymph # (Auto) 2500 (8675-5891) /uL [place] # (Auto) 500 (0-900) /uL Eos # (Auto) 100 (0-450) /uL Baso # (Auto) 100 (0-100) /uL PT 10.4 (9.4-12.5) SECONDS INR 0.9 (0.9-1.3) Sodium 144 (137-145) mmol/L Potassium 3.9 (3.4-5.1) mmol/L Chloride 106 (98-107) mmol/L Carbon Dioxide 28 (22-32) mmol/L BUN 7 L (9-20) mg/dL Creatinine 0.82 (0.66-1.25) mg/dL Estimated GFR > 60 (>60) mL/min BUN/Creatinine Ratio 8.5 (6-22) Glucose 111 H (70-99) mg/dL Calcium 8.1 L (8.4-10.2) mg/dL Magnesium 2.0 (1.6-2.3) mg/dL Total Bilirubin 0.2 (0.2-1.3) mg/dL AST 30 (17-59) IU/L ALT 19 (<50) IU/L Alkaline Phosphatase 82 (38-126) U/L Total Protein 6.9 (6.3-8.2) g/dL Albumin 4.2 (3.5-5.0) g/dL Globulin 2.7 (1.7-4.1) g/dL Albumin/Globulin Ratio 1.6 (1.0-2.8) Ethyl Alcohol 425 H* 306 H (<10) mg/dL [facility] Narrative Medical decision making narrative: 40-year-old male with a history of alcohol use disorder who presents with alcohol intoxication and withdrawal. He did require some Ativan overnight. In the a.m. as his alcohol level decreased, he demanded to be discharged and wanted to put himself into a detox center on his own. Patient discharged. Advised on gradually reducing alcohol usage. Patient did not want any medications or further treatment. Discharge Plan Departure Patient Disposition: Home Clinical Impression: Alcohol abuse Alcoholic intoxication Qualifiers: Complication of substance-induced condition: uncomplicated Qualified Code(s): F10.920 - Alcohol use, unspecified with intoxication, uncomplicated Instructions: Alcohol Use Disorder Activity Restrictions/Additional Instructions: Please slowly cut back on the amount of alcohol your drinking. Follow up in detox center as planned. Prescriptions: No Action chlordiazepoxide HCl 25 mg capsule 25 mg PO Q8-12H PRN (Reason: anxiety) Qty: 14 0RF amoxicillin-pot clavulanate 875-125 mg tablet 1 tab PO BID Qty: 14 0RF ondansetron 4 mg tablet,disintegrating 4 mg PO Q6H PRN (Reason: nausea and vomiting) Qty: 14 0RF Stand Alone Forms: Patient Portal/API
[2025-08-24 18:47] LABS: Add Manual Diff / Slide Review NO; Hematocrit 45.1 % (41-53); Hemoglobin 15.9 g/dL (13.5-17.5); Lymphocytes Absolute Auto 2500 /uL (1100-4500); Mean Corpuscular HGB Conc 35.1 % (30-36); Mean Corpuscular Hemoglobin 33.2 PG (26-34); Mean Corpuscular Volume 94.4 fL (80-100)
--- NOTE | 2025-08-24 18:52 | DI.RAD.S_ITS ---
PROCEDURE: XR CHEST 1V INDICATIONS: sob TECHNIQUE: One view of the chest was acquired. COMPARISON: [facility], CR, XR CHEST 1V, 08/06/2025, 15:51. [facility], CR, XR CHEST FOR PICC 1V, 08/05/2025, 11:18. FINDINGS: Surgical changes and devices: None. Lungs and pleura: Lungs are clear. No pleural effusions or pneumothorax. Mediastinum: Mediastinal contours appear normal. Heart size is normal. Bones and chest wall: No suspicious bony lesions. Overlying soft tissues appear unremarkable. IMPRESSION: No acute cardiopulmonary abnormality is seen. Dictated by: Eric Melchor M.D. on 08/24/2025 at 19:25 Approved by: Eric Melchor M.D. on 08/24/2025 at 19:26
[2025-08-24 19:02] LABS: Platelet Count 260 X10^3/uL (150-400)
[2025-08-24] MEDS: SODIUM CHLORIDE 0.9% 1,000 ML 1000 ML IV (19:06)
[2025-08-24 20:12] LABS: Alanine Aminotransferase 19 IU/L (<50); Albumin 4.2 g/dL (3.5-5.0); Albumin Globulin Ratio 1.6 (1.0-2.8); Alkaline Phosphatase 82 U/L (38-126); Blood Urea Nitrogen 7 mg/dL (9-20); Calcium 8.1 mg/dL (8.4-10.2); Carbon Dioxide 28 mmol/L (22-32); Chloride 106 mmol/L (98-107); Estimated Glomerular Filt Rate > 60 mL/min (>60); Globulin 2.7 g/dL (1.7-4.1); Glucose 111 mg/dL (70-99); HEMOLYSIS < 15 (0-50); Magnesium 2.0 mg/dL (1.6-2.3); Potassium 3.9 mmol/L (3.4-5.1); Sodium 144 mmol/L (137-145); Total Protein 6.9 g/dL (6.3-8.2)
[2025-08-24 20:33] LABS: Ethanol (ETOH) 425 mg/dL (<10)
--- NOTE | 2025-08-24 23:33 | PC.NURSE ---
Report to RN, assignment ended
--- NOTE | 2025-08-24 23:40 | PC.NURSE ---
Report given, care ended.
[2025-08-25] VITALS (15 sets, daily range): BP systolic 105–146; BP diastolic 53–102; PULSE 90–121; RESP 20; TEMP 36.9; O2SAT 89–95
[2025-08-25 03:50] LABS: Ethanol (ETOH) 306 mg/dL (<10)
--- NOTE | 2025-08-25 05:04 | PC.NURSE ---
SLITTER AND REWINDER note: [phone] called [facility] spoke with Tevin. They currently have one male bed open. Patient would need to do a phone screen, and I would need to fax over a packet. Said if they were to take the patient it wouldn't be until after 0900 related to their nurse report. Thanked Tevin for his help. Faxed over a packet
--- NOTE | 2025-08-25 06:36 | PC.NURSE ---
Pt refused last set of vital signs prior to discharge
== END 2025-08-25 06:30 | disposition home or self-care (01) ==
PROVIDERS: Emergency Medicine; Emergency Provider Family Medicine
DX: F10.129 Alcohol abuse with intoxication, unspecified (principal); Y90.8 Blood alcohol level of 240 mg/100 ml or more; F17.210 Nicotine dependence, cigarettes, uncomplicated
CPT/HCPCS: 36415; 71045; 80053; 80320; 83735; 85025; 85610; 96361; 96374; 96376; 99284; J2060; J7030

== ENCOUNTER 2025-08-27 10:23 | Emergency (ER) | payer OTHER, SELFPAY ==
[2025-08-06 17:50] VITALS: BMI 29.6
[2025-08-27] VITALS (16 sets, daily range): BP systolic 124–148; BP diastolic 81–101; PULSE 103–120; RESP 16–45; TEMP 37.2; O2SAT 88–96; BMI 27.1
--- NOTE | 2025-08-27 10:34 | ED.ALCOHOL ---
HPI - Alcohol General Chief Complaint: Toxicology Problem Stated Complaint: Alcohol withdrawal Time Seen by Provider: 08/27/25 10:33 History of Present Illness HPI narrative: Patient is a 40-year-old male history of alcohol misuse disorder well known to this facility presenting wanting detox. He has been admitted twice for alcohol withdrawal and has previously left against medical advice both times. Long discussion with him he is adamant that he wants sober he wants to go to detox and he wants help. He has previously been sober for 3 weeks prior to his most recent bingeing episode. He has no other complaints. Reports that he drank just prior to arrival Related Data Previous Rx's ?Medication ?Instructions ?Recorded ondansetron 4 mg disintegrating 4 mg PO Q6H PRN nausea and 10/25/19 tablet vomiting #14 tabs amoxicillin 875 mg-potassium 1 tab PO BID #14 tabs 08/07/25 clavulanate 125 mg tablet chlordiazepoxide HCl 25 mg capsule 25 mg PO Q8-12H PRN anxiety #14 08/07/25 caps Allergies Allergy/AdvReac Type Severity Reaction Status Date / Time No Known Drug Allergies Allergy Verified 08/06/25 08:40 Patient History Medical History Alcohol abuse Social History household members: family alcohol intake: current tobacco type: cigarettes alcohol intake frequency: other Alcohol type: hard liquor Exam Initial Vital Signs Initial Vital Signs: Vital Signs Temperature 99.0 F 08/27/25 10:25 Pulse Rate 105 H 08/27/25 10:25 Respiratory Rate 16 08/27/25 10:25 Blood Pressure 134/93 H 08/27/25 10:25 Pulse Oximetry 95 08/27/25 10:25 Oxygen Delivery Method Room Air 08/27/25 10:25 GENERAL: Alert 40-year-old male and in no acute distress. HEENT: Head atraumatic,EOMI, pupils reactive, face symmetric, moist mucous membranes CARDIOVASCULAR: Regular rate and rhythm without murmurs, rubs or gallops. RESPIRATORY: Breath sounds equal bilaterally, no wheezes rales or rhonchi. ABDOMEN: Soft, nontender. Normoactive bowel sounds all 4 quadrants. No guarding or rebound. EXTREMITIES: Normal range of motion, no clubbing or edema. Neurovascularly intact NEUROLOGICAL: Moving all extremities minimal slurring of his speech SKIN: Warm, dry, no laceration, no petechiae, no rashes or lesions. Course Orders Ordered: ED Orders 08/27/25 10:42 CBC Auto Diff [Complete Blood Count AUTO DIFF] Stat CMP [Comprehensive Metabolic Panel] Stat ETOH [Ethanol (ETOH)] Stat Lipase Stat 08/27/25 11:14 tox [Urine Drug Screen, Rapid] Stat 08/27/25 11:57 Chest [XR chest 1V] Stat 08/27/25 12:21 Consult to WINDOWS DESKTOP ENGINEER - Principal Librarian Stat Discontinued Medications Phenobarbital (Phenobarbital 65 Mg/Ml Vial) 130 mg IV NOW ONE Stop: 08/27/25 11:58 Last Admin: 08/27/25 12:05 Dose: 130 mg Documented By: HA Vital Signs Vital signs: Vital Signs - 8 hr 08/27/25 11:13 08/27/25 11:18 08/27/25 11:18 Pulse Rate 107 H 106 H Respiratory Rate 22 Blood Pressure 148/101 H Pulse Oximetry 96 95 Oxygen Delivery Method Room Air Oxygen Flow Rate 08/27/25 11:30 08/27/25 11:30 08/27/25 12:00 Pulse Rate 109 H 107 H Respiratory Rate Blood Pressure 148/85 H Pulse Oximetry 94 93 Oxygen Delivery Method Room Air Oxygen Flow Rate 08/27/25 12:10 08/27/25 12:10 08/27/25 12:30 Pulse Rate 105 H 107 H Respiratory Rate Blood Pressure 140/91 H Pulse Oximetry 91 95 Oxygen Delivery Method Oxygen Flow Rate 08/27/25 12:34 08/27/25 12:34 08/27/25 12:45 Pulse Rate 106 H Respiratory Rate 26 H Blood Pressure 124/84 Pulse Oximetry 93 88 L Oxygen Delivery Method Room Air Room Air Oxygen Flow Rate 08/27/25 12:46 08/27/25 13:00 08/27/25 13:03 Pulse Rate 119 H Respiratory Rate 45 H Blood Pressure 133/81 Pulse Oximetry 92 88 L Oxygen Delivery Method Nasal Cannula Oxygen Flow Rate 2 2 08/27/25 13:03 08/27/25 13:30 Pulse Rate 107 H 120 H Respiratory Rate 25 H 28 H Blood Pressure Pulse Oximetry 91 91 Oxygen Delivery Method Oxygen Flow Rate 3 0 MDM - Alcohol Lab Data 08/27/25 10:42 08/27/25 10:42 Labs: Lab Results 08/27/25 08/27/25 Range/Units 10:42 11:14 WBC 7.0 (4.5-11.0) X10^3/uL RBC 4.56 (4.5-5.9) X10^6/uL Hgb 15.0 (13.5-17.5) g/dL Hct 43.0 (41-53) % MCV 94.2 (80-100) fL MCH 32.9 (26-34) PG MCHC 34.9 (30-36) % RDW 14.0 (11.6-14.8) % Plt Count 301 (150-400) X10^3/uL Neut % (Auto) 68.8 (50-75) % Lymph % (Auto) 22.1 L (25-40) % [place] % (Auto) 6.4 (3-14) % Eos % (Auto) 0.4 L (2-4) % Baso % (Auto) 2.3 H (0-2) % Neut # (Auto) 4800 (5590-3494) /uL Lymph # (Auto) 1500 (9021-9106) /uL [place] # (Auto) 400 (0-900) /uL Eos # (Auto) 0 (0-450) /uL Baso # (Auto) 200 H (0-100) /uL Sodium 141 (137-145) mmol/L Potassium 3.6 (3.4-5.1) mmol/L Chloride 102 (98-107) mmol/L Carbon Dioxide 25 (22-32) mmol/L BUN 7 L (9-20) mg/dL Creatinine 0.69 (0.66-1.25) mg/dL Estimated GFR > 60 (>60) mL/min BUN/Creatinine Ratio 10.1 (6-22) Glucose 146 H (70-99) mg/dL Calcium 8.4 (8.4-10.2) mg/dL Total Bilirubin 0.4 (0.2-1.3) mg/dL AST 36 (17-59) IU/L ALT 20 (<50) IU/L Alkaline Phosphatase 80 (38-126) U/L Total Protein 6.9 (6.3-8.2) g/dL Albumin 4.3 (3.5-5.0) g/dL Globulin 2.6 (1.7-4.1) g/dL Albumin/Globulin Ratio 1.7 (1.0-2.8) Lipase 181 (23-300) U/L U Opiates 300ng/mL cut Negative (Negative) Ur Oxycodone Screen Negative (Negative) Urine Methadone Screen Negative (Negative) Ur Barbiturates Screen Negative (Negative) U Tricyclic Antidepress Negative (Negative) Ur Phencyclidine Scrn Negative (Negative) Ur Amphetamines Screen Negative (Negative) U Methamphetamines Scrn Negative (Negative) Ur MDMA Scrn (Ecstasy) Negative (Negative) U Benzodiazepines Scrn Positive H (Negative) Urine Cocaine Screen Negative (Negative) U Marijuana (THC) Screen Positive H (Negative) Urine pH Normal (Normal) Urine Specific [place] Normal (Normal) Ethyl Alcohol 439 H* (<10) mg/dL Ur Creatinine Normal (Normal) MDM Narrative Medical decision making narrative: Patient known alcohol use disorder presenting today wanting detox. He is here with the support of his father who encourage is this. He has previously left against medical advice both times. Reassures me that this will not happen again Blood work has been reviewed CBC shows a WBC of 7.0 hemoglobin 15 hematocrit 43.0 Electrolytes within normal limits creatinine 0.69 glucose 146 Bilirubin 0.4 AST 36 ALT 20 lipase 181 Alcohol level is 439 Urine drug screen positive for benzos and marijuana Meds given Phenobarbital 130 mg 1345 Patient getting very agitated wanting to leave. I was called to bedside by nursing staff. Patient is offered medication for anxiety reminded him that he really wanted to get help. He reports that he really just needs to leave. He does have a steady gait. He understands that he needs detoxing wants detox but his anxiety level has increased significantly he is quite adamant that he wants to leave can not be talked out of it. IV is pulled by nursing. Discharge Plan Departure Patient Disposition: Left Against Medical Advice Clinical Impression: Alcoholic intoxication Qualifiers: Complication of substance-induced condition: uncomplicated Qualified Code(s): F10.920 - Alcohol use, unspecified with intoxication, uncomplicated Prescriptions: No Action chlordiazepoxide HCl 25 mg capsule 25 mg PO Q8-12H PRN (Reason: anxiety) Qty: 14 0RF amoxicillin-pot clavulanate 875-125 mg tablet 1 tab PO BID Qty: 14 0RF ondansetron 4 mg tablet,disintegrating 4 mg PO Q6H PRN (Reason: nausea and vomiting) Qty: 14 0RF Stand Alone Forms: Patient Portal/API, Against Med. Advice ([place])
[2025-08-27 11:01] LABS: Add Manual Diff / Slide Review NO; Hematocrit 43.0 % (41-53); Hemoglobin 15.0 g/dL (13.5-17.5); Lymphocytes Absolute Auto 1500 /uL (1100-4500); Mean Corpuscular HGB Conc 34.9 % (30-36); Mean Corpuscular Hemoglobin 32.9 PG (26-34); Mean Corpuscular Volume 94.2 fL (80-100); Platelet Count 301 X10^3/uL (150-400)
[2025-08-27 11:04] LABS: Alanine Aminotransferase 20 IU/L (<50); Albumin 4.3 g/dL (3.5-5.0); Albumin Globulin Ratio 1.7 (1.0-2.8); Alkaline Phosphatase 80 U/L (38-126); Blood Urea Nitrogen 7 mg/dL (9-20); Calcium 8.4 mg/dL (8.4-10.2); Carbon Dioxide 25 mmol/L (22-32); Chloride 102 mmol/L (98-107); Estimated Glomerular Filt Rate > 60 mL/min (>60); Globulin 2.6 g/dL (1.7-4.1); Glucose 146 mg/dL (70-99); HEMOLYSIS 24 (0-50); Lipase 181 U/L (23-300); Potassium 3.6 mmol/L (3.4-5.1); Sodium 141 mmol/L (137-145); Total Protein 6.9 g/dL (6.3-8.2)
[2025-08-27 11:15] LABS: Ethanol (ETOH) 439 mg/dL (<10)
[2025-08-27 11:28] LABS: Ur Specific Gravity Normal (Normal)
[2025-08-27 11:29] LABS: UR Morphine/Opiate cutoff 300 Negative (Negative); Urine MDMA Negative (Negative); Urine Methamphetamines Negative (Negative); Urine Tetrahydrocannabinol Positive (Negative); Urine Tricyclic Antidepressant Negative (Negative)
--- NOTE | 2025-08-27 11:34 | PC.NURSE ---
Patient reports having 5 pints of alcohol. Hard liquor per patient. Seeking to get detox. Father at bedside and states he binge drinks.
--- NOTE | 2025-08-27 11:57 | DI.RAD.S_ITS ---
PROCEDURE: XR CHEST 1V INDICATIONS: coarse breath sounds TECHNIQUE: One view of the chest was acquired. COMPARISON: [facility], CR, XR CHEST 1V, 08/24/2025, 18:51. FINDINGS: Surgical changes and devices: Right lower neck soft tissue embolic treatment noted Lungs and pleura: Lungs are clear. No pleural effusions or pneumothorax. Mediastinum: Mediastinal contours appear normal. Heart size is normal. Bones and chest wall: No suspicious bony lesions. Overlying soft tissues appear unremarkable. IMPRESSION: No acute cardiopulmonary abnormality is seen. Approved by: Ernesto Villalba M.D. on 08/27/2025 at 12:05
--- NOTE | 2025-08-27 13:07 | PC.NURSE ---
Patient starts yelling at his father. States, I need peace. Father leaves. Lights dimmed. Call light within reach.
--- NOTE | 2025-08-27 13:47 | PC.NURSE ---
patient states that he wants to leave. MD aware, social work aware, RNs, techs all responded and spent several minutes trying to talk to the patient into staying. He was offered medication, encouragement, redirection, family help. He was independently ambulatory by himself at time of discharge. He sated that he understood that he could come back if he needed to.
--- NOTE | 2025-08-27 14:24 | CM.SWNOTE ---
ED SOLAR LAB TECHNICIAN Assessment Note: Pt is a 40yo male, resident of [place], is seen in the ED for ETOH withdrawal. He was seeking detox initially. Reviewed chart and discussed with multidisciplinary team pt's medical status and initial discharge needs. SOLAR LAB TECHNICIAN consulted to assist with detox placement or DCR dispatch for [facility] when medically cleared. Pt presented with an initial BAL of 439. Pt has been identified to present to the ED for similar symptoms, this is the patient's 5th presentation this month. SOLAR LAB TECHNICIAN uploaded pt's [facility] file to chart. SOLAR LAB TECHNICIAN reviews this with ED provider Dr. Russell who indicates agreement and understanding. At 1345, pt left the ED against medical advice after he was notified he is not able to utilize tobacco vape in ED room. SOLAR LAB TECHNICIAN to call [facility] Crisis Line to notify of pt leaving against medical advice and consult for [facility]. JOÃO Patiño
--- NOTE | 2025-08-27 18:47 | ED.ALCOHOL ---
HPI - Alcohol General Chief Complaint: Toxicology Problem Stated Complaint: Alcohol withdrawal Time Seen by Provider: 08/27/25 10:33 Source: family Mode of arrival: Wheelchair History of Present Illness HPI narrative: 15:12 patient returns to the emergency department after leaving against medical advice. He again wants detox he apologizes he understands that he needs to stay. He has no complaints denies that he drink anymore alcohol. Related Data Previous Rx's ?Medication ?Instructions ?Recorded ondansetron 4 mg disintegrating 4 mg PO Q6H PRN nausea and 10/25/19 tablet vomiting #14 tabs amoxicillin 875 mg-potassium 1 tab PO BID #14 tabs 08/07/25 clavulanate 125 mg tablet chlordiazepoxide HCl 25 mg capsule 25 mg PO Q8-12H PRN anxiety #14 08/07/25 caps Allergies Allergy/AdvReac Type Severity Reaction Status Date / Time No Known Drug Allergies Allergy Verified 08/06/25 08:40 Patient History Medical History Alcohol abuse Social History household members: family alcohol intake: current tobacco type: cigarettes alcohol intake frequency: other Alcohol type: hard liquor Exam Initial Vital Signs Initial Vital Signs: Vital Signs Temperature 99.0 F 08/27/25 10:25 Pulse Rate 105 H 08/27/25 10:25 Respiratory Rate 16 08/27/25 10:25 Blood Pressure 134/93 H 08/27/25 10:25 Pulse Oximetry 95 08/27/25 10:25 Oxygen Delivery Method Room Air 08/27/25 10:25 GENERAL: Alert cooperative 40-year-old male HEENT: Head atraumatic,EOMI, pupils reactive, face symmetric, moist mucous membranes CARDIOVASCULAR: Regular rate and rhythm without murmurs, rubs or gallops. RESPIRATORY: Breath sounds equal bilaterally, no wheezes rales or rhonchi. ABDOMEN: Soft, nontender. Normoactive bowel sounds all 4 quadrants. No guarding or rebound. EXTREMITIES: Normal range of motion, no clubbing or edema. Neurovascularly intact NEUROLOGICAL: Alert and oriented x4.Normal gait and speech. Cranial nerves II through XII grossly intact. SKIN: Warm, dry, no laceration, no petechiae, no rashes or lesions. Course Orders Ordered: ED Orders 08/27/25 10:42 CBC Auto Diff [Complete Blood Count AUTO DIFF] Stat CMP [Comprehensive Metabolic Panel] Stat ETOH [Ethanol (ETOH)] Stat Lipase Stat 08/27/25 11:14 tox [Urine Drug Screen, Rapid] Stat 08/27/25 11:57 Chest [XR chest 1V] Stat 08/27/25 12:21 [place] to [facility] [place] Padder Stat Discontinued Medications Phenobarbital (Phenobarbital 65 Mg/Ml Vial) 130 mg IV NOW ONE Stop: 08/27/25 11:58 Last Admin: 08/27/25 12:05 Dose: 130 mg Documented By: BZ Vital Signs Vital signs: Vital Signs - 8 hr 08/27/25 11:13 08/27/25 11:18 08/27/25 11:18 Pulse Rate 107 H 106 H Respiratory Rate 22 Blood Pressure 148/101 H Pulse Oximetry 96 95 Oxygen Delivery Method Room Air Oxygen Flow Rate 08/27/25 11:30 08/27/25 11:30 08/27/25 12:00 Pulse Rate 109 H 107 H Respiratory Rate Blood Pressure 148/85 H Pulse Oximetry 94 93 Oxygen Delivery Method Room Air Oxygen Flow Rate 08/27/25 12:10 08/27/25 12:10 08/27/25 12:30 Pulse Rate 105 H 107 H Respiratory Rate Blood Pressure 140/91 H Pulse Oximetry 91 95 Oxygen Delivery Method Oxygen Flow Rate 08/27/25 12:34 08/27/25 12:34 08/27/25 12:45 Pulse Rate 106 H Respiratory Rate 26 H Blood Pressure 124/84 Pulse Oximetry 93 88 L Oxygen Delivery Method Room Air Room Air Oxygen Flow Rate 08/27/25 12:46 08/27/25 13:00 08/27/25 13:03 Pulse Rate 119 H Respiratory Rate 45 H Blood Pressure 133/81 Pulse Oximetry 92 88 L Oxygen Delivery Method Nasal Cannula Oxygen Flow Rate 2 2 08/27/25 13:03 08/27/25 13:30 Pulse Rate 107 H 120 H Respiratory Rate 25 H 28 H Blood Pressure Pulse Oximetry 91 91 Oxygen Delivery Method Oxygen Flow Rate 3 0 MDM - Alcohol Lab Data 08/27/25 10:42 08/27/25 10:42 Labs: Lab Results 08/27/25 08/27/25 Range/Units 10:42 11:14 WBC 7.0 (4.5-11.0) X10^3/uL RBC 4.56 (4.5-5.9) X10^6/uL Hgb 15.0 (13.5-17.5) g/dL Hct 43.0 (41-53) % MCV 94.2 (80-100) fL MCH 32.9 (26-34) PG MCHC 34.9 (30-36) % RDW 14.0 (11.6-14.8) % Plt Count 301 (150-400) X10^3/uL Neut % (Auto) 68.8 (50-75) % Lymph % (Auto) 22.1 L (25-40) % [place] % (Auto) 6.4 (3-14) % Eos % (Auto) 0.4 L (2-4) % Baso % (Auto) 2.3 H (0-2) % Neut # (Auto) 4800 (5652-2889) /uL Lymph # (Auto) 1500 (6992-3679) /uL [place] # (Auto) 400 (0-900) /uL Eos # (Auto) 0 (0-450) /uL Baso # (Auto) 200 H (0-100) /uL Sodium 141 (137-145) mmol/L Potassium 3.6 (3.4-5.1) mmol/L Chloride 102 (98-107) mmol/L Carbon Dioxide 25 (22-32) mmol/L BUN 7 L (9-20) mg/dL Creatinine 0.69 (0.66-1.25) mg/dL Estimated GFR > 60 (>60) mL/min BUN/Creatinine Ratio 10.1 (6-22) Glucose 146 H (70-99) mg/dL Calcium 8.4 (8.4-10.2) mg/dL Total Bilirubin 0.4 (0.2-1.3) mg/dL AST 36 (17-59) IU/L ALT 20 (<50) IU/L Alkaline Phosphatase 80 (38-126) U/L Total Protein 6.9 (6.3-8.2) g/dL Albumin 4.3 (3.5-5.0) g/dL Globulin 2.6 (1.7-4.1) g/dL Albumin/Globulin Ratio 1.7 (1.0-2.8) Lipase 181 (23-300) U/L U Opiates 300ng/mL cut Negative (Negative) Ur Oxycodone Screen Negative (Negative) Urine Methadone Screen Negative (Negative) Ur Barbiturates Screen Negative (Negative) U Tricyclic Antidepress Negative (Negative) Ur Phencyclidine Scrn Negative (Negative) Ur Amphetamines Screen Negative (Negative) U Methamphetamines Scrn Negative (Negative) Ur MDMA Scrn (Ecstasy) Negative (Negative) U Benzodiazepines Scrn Positive H (Negative) Urine Cocaine Screen Negative (Negative) U Marijuana (THC) Screen Positive H (Negative) Urine pH Normal (Normal) Urine Specific [place] Normal (Normal) Ethyl Alcohol 439 H* (<10) mg/dL Ur Creatinine Normal (Normal) MDM Narrative Medical decision making narrative: Alcohol level Discharge Plan Departure Patient Disposition: Left Against Medical Advice Clinical Impression: Alcoholic intoxication Qualifiers: Complication of substance-induced condition: uncomplicated Qualified Code(s): F10.920 - Alcohol use, unspecified with intoxication, uncomplicated Prescriptions: No Action chlordiazepoxide HCl 25 mg capsule 25 mg PO Q8-12H PRN (Reason: anxiety) Qty: 14 0RF amoxicillin-pot clavulanate 875-125 mg tablet 1 tab PO BID Qty: 14 0RF ondansetron 4 mg tablet,disintegrating 4 mg PO Q6H PRN (Reason: nausea and vomiting) Qty: 14 0RF Stand Alone Forms: Patient Portal/API, Against Med. Advice (Hungarian)
== END 2025-08-27 13:45 | disposition left against medical advice (07) ==
PROVIDERS: Emergency Provider Emergency Medicine
DX: F10.129 Alcohol abuse with intoxication, unspecified (principal); Y90.8 Blood alcohol level of 240 mg/100 ml or more
CPT/HCPCS: 36415; 71045; 80053; 80305; 80320; 83690; 85025; J2560

== ENCOUNTER 2025-08-27 14:39 | Inpatient (IN) | payer OTHER, SELFPAY ==
[2025-08-06 17:50] VITALS: BMI 29.6
[2025-08-27] VITALS (22 sets, daily range): BP systolic 87–162; BP diastolic 50–100; PULSE 83–117; RESP 18–29; TEMP 37.1–37.2; O2SAT 89–98; BMI 29.0
[2025-08-27] MEDS: ONDANSETRON 4 MG/2 ML INJ IV (15:34)
[2025-08-27 15:36] LABS: Ethanol (ETOH) 380 mg/dL (<10)
--- NOTE | 2025-08-27 15:48 | ED_ITS ---
HPI - Alcohol General Chief Complaint: Toxicology Problem Stated Complaint: Alcohol withdrawal Time Seen by Provider: 08/27/25 15:27 Mode of arrival: Wheelchair History of Present Illness HPI narrative: Patient returned to the emergency department after leaving Against Medical Advice. He is a known alcoholic wanting detox he apologizes profusely. Is cooperative Related Data Previous Rx's ?Medication ?Instructions ?Recorded ondansetron 4 mg disintegrating 4 mg PO Q6H PRN nausea and 10/25/19 tablet vomiting #14 tabs amoxicillin 875 mg-potassium 1 tab PO BID #14 tabs clavulanate 125 mg tablet chlordiazepoxide HCl 25 mg capsule 25 mg PO Q8-12H PRN anxiety #14 08/07/25 caps Allergies Allergy/AdvReac Type Severity Reaction Status Date / Time No Known Drug Allergies Allergy Verified 08/06/25 08:40 Patient History Medical History Alcohol abuse Social History household members: family alcohol intake: current tobacco type: cigarettes alcohol intake frequency: other Alcohol type: hard liquor Exam Initial Vital Signs Initial Vital Signs: Vital Signs Temperature 98.8 F 08/27/25 14:50 Pulse Rate 109 H 08/27/25 14:50 Respiratory Rate 22 08/27/25 14:50 Blood Pressure 134/100 H 08/27/25 14:50 Pulse Oximetry 96 08/27/25 14:50 Oxygen Delivery Method Room Air 08/27/25 14:50 GENERAL: Alert cooperative 40-year-old male intoxicated CARDIOVASCULAR: peripheral pulses in tact, cap refill <2 sec RESPIRATORY: No respiratory distress, speaks in full sentences without difficulty EXTREMITIES: Normal range of motion, no clubbing or edema. Neurovascularly intact NEUROLOGICAL: Cranial nerves II through XII grossly intact. Normal gait and speech. SKIN: Warm, dry, no petechiae, no rashes or lesions. Course Orders Ordered: ED Orders 08/27/25 15:12 Ethanol (ETOH) Stat 08/27/25 16:08 Consult to LOGISTICS SOLUTION MANAGER - Warehouse Record Clerk Stat Sodium Chloride (Normal Saline 0.9%) 1,000 mls @ 100 mls/hr IV CONT CORNEL dexmedeTOMIDine in 0.9 % NaCL (Precedex) 400 mcg in 100 mls @ 5 mls/hr IV PROTOCOL CORNEL; Protocol Thiamine HCl 500 mg/ Sodium (Chloride) 105 mls @ 420 mls/hr IV Q8H [facility] Stop: 08/30/25 18:44 Ibuprofen (Ibuprofen 400 Mg Tablet) 400 mg PO Q4H CORNEL Lorazepam (Lorazepam 2 Mg/Ml Inj) 0 mg IV CIWAPRN PRN; Protocol PRN Reason: Alcohol Withdrawal Lorazepam (Lorazepam 1 Mg Tablet) 0 mg PO CIWAPRN PRN; Protocol PRN Reason: Alcohol Withdrawal Lorazepam (Lorazepam 2 Mg/Ml Inj) 2 mg 0.02 mg/kg (2 mg) IV Q15MIN PRN PRN Reason: Severe agitation Multivitamins (Multivitamin 1 Tablet) 1 tab PO DAILY [facility] Naloxone HCl (Naloxone 0.4 Mg/Ml Vial) 0.2 mg IV Q2MIN PRN PRN Reason: Opiate Reversal Phenobarbital (Phenobarbital 65 Mg/Ml Vial) 260 mg IV Q4H [facility] Thiamine HCl (Thiamine 100 Mg Tablet) 100 mg PO DAILY [facility] Discontinued Medications Phenobarbital 1,000 mg/ Sodium (Chloride) 115.3846 mls @ 230.769 mls/hr IV NOW ONE Stop: 08/27/25 17:59 Ibuprofen (Ibuprofen 400 Mg Tablet) 400 mg PO Q4H [facility] Lorazepam (Lorazepam 2 Mg/Ml Inj) 1 mg IV NOW ONE Stop: 08/27/25 15:28 Last Admin: 08/27/25 15:35 Dose: 1 mg Documented By: INES Lorazepam (Lorazepam 2 Mg/Ml Inj) 2 mg IV NOW ONE Stop: 08/27/25 16:55 Ondansetron HCl (Ondansetron 4 Mg/2 Ml Inj) 4 mg IV NOW ONE Stop: 08/27/25 15:30 Last Admin: 08/27/25 15:34 Dose: 4 mg Documented By: SB Phenobarbital (Phenobarbital 65 Mg/Ml Vial) 260 mg IV NOW ONE Stop: 08/27/25 15:28 Last Admin: 08/27/25 15:36 Dose: 260 mg Documented By: SB Phenobarbital (Phenobarbital 65 Mg/Ml Vial) 260 mg IV NOW ONE Stop: 08/27/25 16:55 Phenobarbital (Phenobarbital 65 Mg/Ml Vial) 260 mg IV Q4H [facility] Stop: 08/30/25 18:44 Vital Signs Vital signs: Vital Signs - 8 hr 08/27/25 14:50 08/27/25 15:27 08/27/25 15:30 Temperature 98.8 F Pulse Rate 109 H 112 H 117 H Respiratory Rate 22 Blood Pressure 134/100 H Pulse Oximetry 96 98 96 Oxygen Delivery Method Room Air Oxygen Flow Rate 08/27/25 15:30 08/27/25 16:00 08/27/25 16:01 Temperature Pulse Rate 104 H Respiratory Rate Blood Pressure 141/93 H 162/99 H Pulse Oximetry 95 Oxygen Delivery Method Oxygen Flow Rate 08/27/25 16:01 08/27/25 16:30 08/27/25 17:00 Temperature Pulse Rate 109 H 116 H 110 H Respiratory Rate 29 H Blood Pressure Pulse Oximetry 93 95 97 Oxygen Delivery Method Nasal Cannula Oxygen Flow Rate 3 08/27/25 17:00 08/27/25 17:00 08/27/25 17:06 Temperature Pulse Rate 106 H Respiratory Rate 27 H Blood Pressure 137/90 137/90 Pulse Oximetry 96 Oxygen Delivery Method Oxygen Flow Rate 08/27/25 17:06 Temperature Pulse Rate Respiratory Rate Blood Pressure 132/90 Pulse Oximetry Oxygen Delivery Method Oxygen Flow Rate MDM - Alcohol Lab Data Labs: Lab Results 08/27/25 Range/Units 15:12 Ethyl Alcohol 380 H (<10) mg/dL MDM Narrative Medical decision making narrative: 40-year-old male presenting today for the 2nd time for wanting detox. He initially left against medical advice which is something that he does and has. He gets very agitated was not aggressive and now is apologetic. Alcohol level is decreasing it is [address] Amaro, requesting that patient be intubated and given loading dose of phenobarbital of 10 milligrams/kilogram. Multiple conversations with the hospitalist. Patient currently awake alert appropriate and cooperating. He is requiring small dose of oxygen which does happen sometimes. However he is able to look at his phone he does not have severe shakes. He was given 260 mg of phenobarbital here in the emergency department along with Ativan. This combined with his previous dose of 130 mg of phenobarb seems to be working. Patient continues to manage his airway he continues to be cooperative at this time disagree with intubation. Agree to give phenobarbital loading dose if he is becoming severely agitated, intubation as needed if requires airway protection. Dr. Bowman, ASSEMBLER SEAT, also involved in decision for appropriate patient care. 1900 patient is sleeping arousable loading dose of phenobarbital not given. Dr. Amaro occur accepts Critical Care Time Critical Care Time Critical Care Time: Yes Total Critical Care Time: 32 Attestation: The high probability of a clinically significant, sudden or life threatening det erioration of the [cardiovascular] system(s) required my full and direct attention, intervention and personal management. The aggregate critical care time was 32 minutes. This time is in addition to time spent performing reported procedures but includes the following: [x] Data Review and interpretation [x] Patient assessment and monitoring of vital signs [x] Documentation [x] Medication orders and management Discharge Plan Departure Patient Disposition: Admitted As Inpatient Clinical Impression: Alcohol withdrawal Qualifiers: Complication of substance-induced condition: with unspecified complication Qualified Code(s): F10.939 - Alcohol use, unspecified with withdrawal, unspecified Admit Date/Time: 08/27/25 18:31 Admit Provider: Cisco Amaro
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
--- NOTE | 2025-08-27 17:49 | PC.NURSE ---
Patient intermittently argumentative with his father.
--- NOTE | 2025-08-27 18:02 | PC.NURSE ---
patient has not been given medication after two most recent CIWA from this time stamp. He stated he is sweating heavily. His head and palms are dry. He states that he has a 10/10 head ache. He states that he feels agitated. The patient is sleeping. hospitalist at bedside inquiring about the patient's change in status. Patient was not under 1:1 direct observation and may have taken something to explain his somnolence. The father did mention he was very tired. ER day doc consulting with ER night doc
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
--- NOTE | 2025-08-27 18:17 | CM.DANOTE ---
ED RETAIL FINANCIAL ANALYST DCP Assessment Note Please see RETAIL FINANCIAL ANALYST Assessment Note for additional information Pt is a 40yo male, resident of [place], presents to the ED for ETOH withdrawal. Pt's Primary Care Provider is DANNIE Cottrell ([facility]) and insurance is [facility]. Reviewed chart and discussed with multidisciplinary team pt's medical status and initial discharge needs. Patient initially presented to the ED with a BAL of 439 and left AMA at 1315 when asked not to vape in room. Pt returned to the ED at ~1500 and his BAL was 380 at 1512. He is currently heavily sedated and intubated to undergo medical detox. In the last 12 months, this will be patient's 33rd presentation to a medical facility, seeking detox. ED RETAIL FINANCIAL ANALYST met w/patient at bedside prior to sedation; introduced self and role. Patient was found in bed, alert and oriented, cooperative with assessment. Pt confirmed living situation and good support in father, Sang. Pt expressed preference in inpatient TOBY treatment when medically cleared. Patient has a history of being admitted for ETOH detox and when pt feeling somewhat clearer, he historically has left against medical advice and does not complete treatment nor does he follow up with outpatient TOBY treatment. RETAIL FINANCIAL ANALYST called [facility] Crisis [facility] and discussed pt with Akiko, who agrees that [facility] should be appropriate for this patient. Will need to call [facility] to request DCR dispatch - they have all information needed for patient at this time. It is strongly encouraged that as soon as pt is medically cleared [Does not mean he has to be clinically sober, as long as he does not have any other medical need to be admitted] or when pt is awake and speaking, to please call for DCR dispatch for detainment assessment. [facility] Dispatch attestation form completed and pending MD signature, sent to Care Management Team. Plan: Acute care admission, pending medical clearance after ETOH detox then pending [facility] detainment/TOBY treatment. CM team will follow closely for coordination of discharge plans. JOÃO Patiño Discharge Planning/Care Management CM Discharge Assessment Start: 08/27/25 18:04 Freq: Status: Active Protocol: Document 08/27/25 18:04 MW (Rec: 08/27/25 18:17 MW [id number]) Discharge Planning Assessment Assigned Discharge JUAN FRANCISCO Martinez Instrument Shop Supervisor Provider oJhn [facility]idd[facility] ([facility] Insurance [employer] DPOA/Assigned Sang Wolff, Father Designee Name Advance Directives? No Advance Directives No on File History Provided By Patient,Family Member,Medical Record Prior Living House Arrangements Comment Yuri Household Members family Type of Drives own vehicle transporation used prior to admit Independent with ADL Yes 's Is patient alert and Yes oriented? Caregiver for No Another Discharge Plan Drug Rehabilitation Transportation Given patient's hx of several hospital presentations Arrangement due to concern for ETOH withdrawal and leaving AMA it is the opinion of this RETAIL FINANCIAL ANALYST that patient is a candidate for DCR evaluation for PATRICE [facility] TOBY treatment. Review Status In Process Please Provide Date 08/27/25 Initial DC Assessment Was Performed Next Review Type Continued Stay Review
--- NOTE | 2025-08-27 19:10 | PC.NURSE ---
Patient is asleep. Equal chest rise and fall observed. CIWA not assessed due to pt asleep.
[2025-08-27] MEDS: SODIUM CHLORIDE 0.9% 1,000 ML 100 ML IV (20:05)
[2025-08-27] MEDS: dexmedeTOMIDine in 0.9 % NaCL 400 MCG/100 ML PLAST..BAG IV (20:06)
[2025-08-28] VITALS (26 sets, daily range): BP systolic 99–149; BP diastolic 58–96; PULSE 63–93; RESP 17–29; TEMP 36.7–37.4; O2SAT 90–100
[2025-08-28] MEDS: THIAMINE 500 MG in SODIUM CHLORIDE 0.9% 100 ML 420 MG IV ×3 (03:39→18:39)
[2025-08-28] MEDS: SODIUM CHLORIDE 0.9% 1,000 ML 100 ML IV ×2 (03:55→14:01)
[2025-08-28 05:46] LABS: Add Manual Diff / Slide Review NO; Hematocrit 39.0 % (41-53); Hemoglobin 13.5 g/dL (13.5-17.5); Lymphocytes Absolute Auto 1500 /uL (1100-4500); Mean Corpuscular HGB Conc 34.5 % (30-36); Mean Corpuscular Hemoglobin 32.8 PG (26-34); Mean Corpuscular Volume 94.9 fL (80-100); Platelet Count 229 X10^3/uL (150-400)
--- NOTE | 2025-08-28 07:04 | P.PN_ITS ---
Subjective Subjective Date Patient Seen: 08/28/25 Interval history: 08/27 New is 40-year-old male severe alcohol and benzodiazepine abuse seen at multiple institutions began visiting the emergency department at [facility] August 24 wanted to be treated and then signing out Against Medical Advice multiple times. Patient returned 08/27 asking to be detoxed. Previous admission patient started withdrawing became very violent through a table and threatened staff. Typically this happens between 12 and 24 hours after admission Patient returns in his state of intense agitation and with a blood alcohol of 439 and benzodiazepines on his urine tox screen. I was consulted assist in managing this patient. In my extensive experience in management of severe alcohol withdrawal cases in my 30 years of practice, this case stands out as one of the most severe alcohol withdrawal. Furthermore, his withdrawal Withdrawal starting while very high levels of alcohol are detectable in the serum. I Discussed with pharmacy and initiated the protocol he has had [facility] of phenobarbital 10 milligrams/kilogram administered over 30 minutes. Adequate IV access initiating of Precedex drip. I have a very strong suspicion that will not be able to administer adequate sedation to treat this patient's withdrawal and maintain the airway of this patient at the required level of sedation required without intubation. Orders for admission we will follow initiating of sedation with emergency department available for rapid intubation if needed. 08/28: The patient continues to experience wheezing from his asthma and tremors/restlessness from his alcohol withdrawal. His only complaint is that the Kerlix wrap on his right arm IV site is painful. He mumbles. When I asked him what he drinks he answers quite simply ?liquor?. There is also a possibility of lorazepam withdrawal. His alcohol level on admission was 380 at 3:00 p.m. yesterday. The CBC is normal and the CMP is normal with a glucose of 146. The liver enzymes are normal. He received routine doses of phenobarbital overnight and 2 doses of lorazepam. Physical exam: Not agitated. Oriented x3. Mumbling. HEENT unremarkable Heart rate and rhythm regular no murmurs Lungs wheezing bilaterally Abdomen benign Extremities no edema Neuro nonfocal Assessment and plan: Severe combined alcohol and benzodiazepine withdrawal * Severe agitation and violent behavior changes in his case typically begin after 12 hours of hospitalization when alcohol levels have de-escalated * Scheduled phenobarbital 260 q.4 hours ongoing has been effective and will be continued today. * Scheduled Librium along with as needed lorazepam. * Precedex drip as needed Interventions for severe agitation: * Phenobarbital 10 milligrams/kilogram IV over 30 minutes * Titrate off Precedex drip to JACINTO score -2 * Lorazepam 2 mg IV Q 15 minutes * Call emergency department for sedation intubation DVT prophylaxis * SCDs only Code status: * Full code Disposition: * Inpatient ICU likely we will require 3 days or more to detox Exam Vital Signs (past 8 hours): - 08/28/25 01:00 08/28/25 02:00 08/28/25 03:00 Temperature 98.1 F Pulse Rate 82 81 80 Respiratory Rate 25 H 20 29 H Blood Pressure 107/61 99/58 L 99/59 L Pulse Oximetry 94 94 94 Oxygen Flow Rate 4 0 0 08/28/25 04:00 08/28/25 05:00 08/28/25 06:00 Temperature Pulse Rate 78 84 90 Respiratory Rate 19 21 28 H Blood Pressure 102/63 113/69 111/71 Pulse Oximetry 94 90 L 93 Oxygen Flow Rate 0 4 5 08/28/25 06:41 Temperature Pulse Rate 82 Respiratory Rate 18 Blood Pressure 120/71 Pulse Oximetry Oxygen Flow Rate Oxygen Delivery Method Nasal Cannula Oxygen Flow Rate 5 Objective Labs 08/28/25 04:15 Labs: Laboratory Results - last 24 hr 08/27/25 08/28/25 15:12 04:15 WBC 4.4 L RBC 4.11 L Hgb 13.5 Hct 39.0 L MCV 94.9 MCH 32.8 MCHC 34.5 RDW 13.9 Plt Count 229 Neut % (Auto) 50.3 Lymph % (Auto) 33.9 [place] % (Auto) 13.2 Eos % (Auto) 0.9 L Baso % (Auto) 1.7 Neut # (Auto) 2200 Lymph # (Auto) 1500 [place] # (Auto) 600 Eos # (Auto) 0 Baso # (Auto) 100 Ethyl Alcohol 380 H [facility] Medical History Alcohol abuse Social History household members: family alcohol intake: current Assessment & Plan Time-Based Coding :: [TOTAL MINUTES] spent with patient and on the chart (including review of chart, obtaining history, exam, reviewing outside data, placing orders, documenting exam and treatment plan, and counseling patient) on [DATE].
[2025-08-28] MEDS: dexmedeTOMIDine in 0.9 % NaCL 400 MCG/100 ML PLAST..BAG 7.5 MCG IV (07:29)
--- NOTE | 2025-08-28 15:11 | CM.DPC ---
DCP Detainment/DCR Per MD, pt stable on Ativan, phenobarb, and pressodex and historically goes through more withdrawals starting tomorrow. Pt currently with no other medical conditions besides withdrawal management. SW met bedside with pt and father and pt sleeping but father confirms he feels pt needs Inpt ETOH tx and states the reason they have been to [facility] multiple times even though they live in [place] is they feel [facility] provides the best care. 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 Father feels pt's drinking is significantly impacting his quality of life. Father states he himself has hx of alcoholism for about 15 yrs but has been sober for at least 10 years+ now. SW contacted [facility] Crisis Line to inquire if pt has not been assessed by DCR and wants to leave AMA are there any recommendations for contacting police dept if pt leaves AMA or??? [facility] took further information on pt's hx and multiple ED/Hospital admissions along with detox centers and discussed with their DCR who feel pt likely would meet criteria for [place] for involuntary detainment for Inpt ETOH tx. SW faxed clinicals to [facility] at [phone] and then MARIBEL Metzger was dispatched to [facility]. MARIBEL Metzger reviewed pt's clinicals and information and then talked to pt's father individually to gather information and spoke to MD and determined pt currently not medically stable today to discharge directly into ETOH tx and still in withdrawal. MARIBEL Metzger states since she did not assess pt directly then she will send this information to A/All DCRs and keep pt's file open as a hot file and NOT a walk away therefore when pt is Medically Stable then DCR can be called and dispatched and have all the information available without needing to send new referral/fax clinicals. Updated RN and MD. Plan: SW to follow closely for pt to be considered medically stable to discharge and call [facility] and request DCR to be dispatched and fax Provider Attestation that pt is medically cleared again and let them know it is a hot file. JUAN FRANCISCO Dejesus
[2025-08-28] MEDS: dexmedeTOMIDine in 0.9 % NaCL 400 MCG/100 ML PLAST..BAG 10 MCG IV (23:00)
[2025-08-29] VITALS (72 sets, daily range): BP systolic 108–160; BP diastolic 64–106; PULSE 58–96; RESP 15–42; TEMP 36.6–36.9; O2SAT 91–98
[2025-08-29] MEDS: SODIUM CHLORIDE 0.9% 1,000 ML 100 ML IV ×3 (01:32→22:16)
[2025-08-29] MEDS: THIAMINE 500 MG in SODIUM CHLORIDE 0.9% 100 ML 420 MG IV ×3 (02:18→18:27)
[2025-08-29 05:47] LABS: Add Manual Diff / Slide Review NO; Hematocrit 41.4 % (41-53); Hemoglobin 14.6 g/dL (13.5-17.5); Lymphocytes Absolute Auto 1600 /uL (1100-4500); Mean Corpuscular HGB Conc 35.2 % (30-36); Mean Corpuscular Hemoglobin 32.9 PG (26-34); Mean Corpuscular Volume 93.4 fL (80-100); Platelet Count 210 X10^3/uL (150-400)
[2025-08-29] MEDS: IBUPROFEN 400 MG TABLET PO ×4 (06:53→22:17)
--- NOTE | 2025-08-29 07:24 | PM.PN.1 ---
Subjective Subjective Date Patient Seen: 08/29/25 Interval history: Interval history: 08/27 New is 40-year-old male severe alcohol and benzodiazepine abuse seen at multiple institutions (Lives in [place]) began visiting the emergency department at [facility] August 24 wanted to be treated and then signing out Against Medical Advice multiple times. Patient returned 08/27 asking to be detoxed. Previous admission patient started withdrawing became very violent through a table and threatened staff. Typically this happens between 12 and 24 hours after admission Patient returns in his state of intense agitation and with a blood alcohol of 439 and benzodiazepines on his urine tox screen. I was consulted assist in managing this patient. In my extensive experience in management of severe alcohol withdrawal cases in my 30 years of practice, this case stands out as one of the most severe alcohol withdrawal. Furthermore, his withdrawal Withdrawal starting while very high levels of alcohol are detectable in the serum. I Discussed with pharmacy and initiated the protocol he has had [facility] of phenobarbital 10 milligrams/kilogram administered over 30 minutes. Adequate IV access initiating of Precedex drip. I have a very strong suspicion that will not be able to administer adequate sedation to treat this patient's withdrawal and maintain the airway of this patient at the required level of sedation required without intubation. Orders for admission we will follow initiating of sedation with emergency department available for rapid intubation if needed. 08/28: The patient continues to experience wheezing from his asthma and tremors/restlessness from his alcohol withdrawal. His only complaint is that the Kerlix wrap on his right arm IV site is painful. He mumbles. When I asked him what he drinks he answers quite simply ?liquor?. There is also a possibility of lorazepam withdrawal. His alcohol level on admission was 380 at 3:00 p.m. yesterday. The CBC is normal and the CMP is normal with a glucose of 146. The liver enzymes are normal. He received routine doses of phenobarbital overnight and 2 doses of lorazepam. 08/29: The patient's withdrawal has been quite smooth, mostly because of the significant doses of benzodiazepine, phenobarbital and Precedex that from prior experience we knew he would need. Today we will begin backing off on the Precedex and phenobarbital dosing, which could always be resumed at the higher doses if needed. Yesterday he was visited by the [facility] designated responder who discussed that once he is medically stable they would be able to probably detain him to treatment under current state law. The CBC is normal with an MCV of only 93. Physical exam: Not agitated. Oriented x3. Mumbling. HEENT unremarkable Heart rate and rhythm regular no murmurs Lungs with mild wheezing bilaterally Abdomen benign Extremities no edema Neuro nonfocal Assessment and plan: Severe combined alcohol and benzodiazepine withdrawal Severe agitation and violent behavior changes in his case typically begin after 12 hours of hospitalization when alcohol levels have de-escalated Scheduled phenobarbital 260 mg q.4 hours ongoing has been effective and will be trialed downward at 130 mg today. Scheduled Librium along with as needed lorazepam. Precedex drip as needed, will also be weaned as tolerated. Interventions for severe agitation: Phenobarbital 10 milligrams/kilogram IV over 30 minutes Titrate off Precedex drip to JACINTO score -2 Lorazepam 2 mg IV Q 15 minutes Call emergency department for sedation intubation DVT prophylaxis SCDs only Code status: Full code Disposition: Inpatient ICU likely we will require 3 days or more to detox. [facility] visited on the hospital day 2, they are prepared to return when he is medically stable and detain him for treatment. Exam Vital Signs (past 8 hours): - 08/29/25 00:00 08/29/25 00:00 08/29/25 01:00 Pulse Rate 64 61 Respiratory Rate 20 19 Blood Pressure 149/96 H 148/94 H Pulse Oximetry 92 92 Oxygen Delivery Method Room Air Oxygen Flow Rate 0 0 08/29/25 02:00 08/29/25 03:00 08/29/25 04:00 Pulse Rate 60 66 Respiratory Rate 20 17 Blood Pressure 149/96 H 151/95 H Pulse Oximetry 94 91 Oxygen Delivery Method Room Air Oxygen Flow Rate 0 0 08/29/25 04:00 08/29/25 05:00 Pulse Rate 58 L 64 Respiratory Rate 18 19 Blood Pressure 160/101 H 145/90 H Pulse Oximetry 92 94 Oxygen Delivery Method Oxygen Flow Rate 0 9 Oxygen Delivery Method Room Air Oxygen Flow Rate 9 Objective Labs 08/29/25 04:42 Labs: Laboratory Results - last 24 hr 08/29/25 04:42 WBC 5.6 RBC 4.44 L Hgb 14.6 Hct 41.4 MCV 93.4 MCH 32.9 MCHC 35.2 RDW 14.0 Plt Count 210 Neut % (Auto) 56.4 Lymph % (Auto) 29.2 [place] % (Auto) 7.8 Eos % (Auto) 5.9 H Baso % (Auto) 0.7 Neut # (Auto) 3200 Lymph # (Auto) 1600 [place] # (Auto) 400 Eos # (Auto) 300 Baso # (Auto) 0 PFSH Medical History Alcohol abuse Social History household members: family alcohol intake: current Assessment & Plan Time-Based Coding :: [TOTAL MINUTES] spent with patient and on the chart (including review of chart, obtaining history, exam, reviewing outside data, placing orders, documenting exam and treatment plan, and counseling patient) on [DATE].
[2025-08-29] MEDS: dexmedeTOMIDine in 0.9 % NaCL 400 MCG/100 ML PLAST..BAG 10 MCG IV (10:23)
[2025-08-29] MEDS: MULTIVITAMIN 1 TABLET 1 TAB PO (10:23)
--- NOTE | 2025-08-29 16:50 | CM.DPNOTE ---
DCP Continued: Reviewed EMR and team rounds for pt?s medical status. Per hospitalist, pt still not medically cleared for DCR dispatch, possible dispatch on 08/30. Per OB TECH, pt phenobarbitol decreased in dose and verbalized understanding of calling DCR dispatch if pt attempts to leave AMA. # . Plan: Anticipating PATRICE placement for TOBY treatment when medically stable for DCR assessment. CM Team will continue to follow for coordination of discharge plans. JOÃO Patiño
[2025-08-29 18:01] LABS: MRSA (Nasal) PCR NOT DETECTED (Not Detect)
--- NOTE | 2025-08-29 19:15 | PC.NURSE ---
Day Shift Note Pt with a CIWA of 6-16 throughout shift, received ativan prn x1. Precedex gtt infusing at 0.4 mcg/kg/hr. RASS -2 most of shift but able to eat breakfast and dinner today. Midline infiltrated and U/S IVs placed x2 which infiltrated within [address] Mccain notified of the above and order received to place central line due to pt's continued and repeated infiltration and access issues while requiring IV medications for sedation and alcohol withdrawal symptoms. Pt RASS currently 0 and sitting up eating, mildly impulsive. Call light within reach. Bed alarm on.
--- NOTE | 2025-08-29 19:45 | P.PCN_ITS ---
Invasive Monitor Note Procedure Procedure: Central Venous Catheter Insertion (central venous access requested for difficult IV after multiple attempts and infiltrations for treatment of acute EtOH withdrawal requiring multiple IV infusions.) Start Time: 20:00 Stop Time: 20:42 Indication: Medical Management Timeout: 20:00 Barrier Precautions Utilized: Cap, Mask, Hand Hygiene, 2% Chlorhexidine Cutaneous Antisepsis, Sterile Gloves, Sterile Gown, Large Sterile Drape Sheet and Maintenance of Sterile Field Vessel Utilized: Internal Jugular Vein: Right Lines Catheters Utilized: 7.5 [place] Triple Lumen Catheter Insertion Site Care: Sterile Occlusive Dressing Applied Clinical indicators suggest catheter tip resides in: Right Internal Jugular Ultrasound Ultrasound Guidance Utilized: Yes Ultrasound was used to identify the vessel. Assessed vessel was patent.: Internal Jugular Vein Ultrasound was used to visualize vascular needle entry into the: Internal Jugular Vein Limited exam reveals anatomically normal vessel with no apparent abnormal findings.: Yes Permanent ultrasound image obtained and interpretation documented.: No Complications Complications: none
--- NOTE | 2025-08-29 20:23 | DI.RAD.S_ITS ---
PROCEDURE: XR CHEST 1V INDICATIONS: central line placement TECHNIQUE: One view of the chest was acquired. COMPARISON: [facility], SUNITHA, XR CHEST 1V, 08/27/2025, 12:13. [facility], CR, XR CHEST 1V, 08/24/2025, 18:51. FINDINGS AND IMPRESSION: There is a right central line with tip projecting over lower SVC. No pneumothorax identified. Mild diffuse interstitial opacities possibly atypical infection or edema. Indeterminate prominent, but similar appearance of the right hilum. Normal heart size. Amorphous density again seen in the right lower neck. Dictated by: James Wang M.D. on 08/29/2025 at 21:23 Approved by: James Wang M.D. on 08/29/2025 at 21:26
[2025-08-29] MEDS: dexmedeTOMIDine in 0.9 % NaCL 400 MCG/100 ML PLAST..BAG 12.5 MCG IV (22:16)
[2025-08-30] VITALS (82 sets, daily range): BP systolic 109–152; BP diastolic 69–103; PULSE 57–83; RESP 15–31; TEMP 36.3–36.9; O2SAT 90–99
[2025-08-30] MEDS: THIAMINE 500 MG in SODIUM CHLORIDE 0.9% 100 ML 420 MG IV ×3 (03:07→19:00)
[2025-08-30] MEDS: dexmedeTOMIDine in 0.9 % NaCL 400 MCG/100 ML PLAST..BAG 17.5 MCG IV ×4 (03:25→23:12)
[2025-08-30 05:54] LABS: Add Manual Diff / Slide Review NO; Hematocrit 40.7 % (41-53); Hemoglobin 14.3 g/dL (13.5-17.5); Lymphocytes Absolute Auto 1300 /uL (1100-4500); Mean Corpuscular HGB Conc 35.2 % (30-36); Mean Corpuscular Hemoglobin 33.1 PG (26-34); Mean Corpuscular Volume 94.1 fL (80-100); Platelet Count 182 X10^3/uL (150-400)
--- NOTE | 2025-08-30 06:17 | PC.NURSE ---
Manager Ambulatory Note-Central line placed by Anesthesia at 2100 d/t current IV site infiltration and difficult IV start. Precedex resumed at 0.4mcg/kg/hr, titrated up to 0.8mcg for about 5 hours, now at 0.7mcg/hr. CIWA 6-16. Patient has been mostly oriented, unsure of date. IV Ativan given for severe restlessness and agitation/impulsiveness. Also receiving scheduled IV Phenobarbitol and IV Thiamine.
[2025-08-30] MEDS: SODIUM CHLORIDE 0.9% 1,000 ML 75 ML IV ×2 (08:11→18:51)
[2025-08-30 08:52] LABS: Blood Urea Nitrogen 3 mg/dL (9-20); Calcium 8.2 mg/dL (8.4-10.2); Carbon Dioxide 25 mmol/L (22-32); Chloride 106 mmol/L (98-107); Estimated Glomerular Filt Rate > 60 mL/min (>60); Glucose 94 mg/dL (70-99); HEMOLYSIS < 15 (0-50); Potassium 3.9 mmol/L (3.4-5.1); Sodium 135 mmol/L (137-145)
[2025-08-30] MEDS: IBUPROFEN 400 MG TABLET PO ×2 (09:11→23:12)
--- NOTE | 2025-08-30 15:31 | CM.DPNOTE ---
DCP Note L[employer]URE [employer]ILER TENDER reviewed EMR per provider in morning rounds, wants to keep pt sedated until Thursday morning to completely get through withdrawals prior to reinitiating DCR. See previous CM notes for more details on DCR plan CM team will continue to follow closely, will call DCR when pt medically stable. at this point, pt allowed to leave AMA (we do not have a hold on him) if leaves AMA, please call DCR and update them for them to f/u with pt in the community JUAN FRANCISCO Beltran
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
[2025-08-30] MEDS: dexmedeTOMIDine in 0.9 % NaCL 400 MCG/100 ML PLAST..BAG 20 MCG IV (18:52)
[2025-08-31] VITALS (90 sets, daily range): BP systolic 110–171; BP diastolic 69–110; PULSE 66–126; RESP 16–47; TEMP 36.4–36.5; O2SAT 62–100
[2025-08-31] MEDS: dexmedeTOMIDine in 0.9 % NaCL 400 MCG/100 ML PLAST..BAG 17.5 MCG IV ×3 (03:35→22:29)
[2025-08-31] MEDS: IBUPROFEN 400 MG TABLET PO ×4 (03:37→16:03)
[2025-08-31 06:25] LABS: Add Manual Diff / Slide Review NO; Hematocrit 41.8 % (41-53); Hemoglobin 14.7 g/dL (13.5-17.5); Lymphocytes Absolute Auto 1700 /uL (1100-4500); Mean Corpuscular HGB Conc 35.2 % (30-36); Mean Corpuscular Hemoglobin 33.2 PG (26-34); Mean Corpuscular Volume 94.2 fL (80-100); Platelet Count 191 X10^3/uL (150-400)
[2025-08-31] MEDS: SODIUM CHLORIDE 0.9% 1,000 ML 75 ML IV (08:16)
[2025-08-31] MEDS: THIAMINE 100 MG TABLET PO (09:26)
[2025-08-31] MEDS: MULTIVITAMIN 1 TABLET 1 TAB PO (09:26)
--- NOTE | 2025-08-31 10:27 | PC.NURSE ---
Addendum entered by Anthony Pruitt RN 08/31/25 18:19: 1800 MIRYAM AT BEDSIDE. PT AGITATED/ TACHYCARDIC. MD STATES TO ORDER PHENOBARBITAL 260 MG IV PUCH ONCE NOW AND A SECOND DOSE IN 3O MINUTES. Addendum entered by Anthony Pruitt RN 08/31/25 16:50: 1648 MARIBEL LAWSON AT BEDSIDE AT THIS TIME TALKING WITH PATIENT. Addendum entered by Anthony Pruitt RN 08/31/25 14:52: 1424 PT ANXIOUS/ AGITATED. GETTING OUT OF BED. REQUESTING TO LEAVE AMA. MIRYAM CALLED TO BEDSIDE. DCR CALLED REGARDING SITUATION FOR POSSIBLE DETAINMENT AND SPOKE WITH MD. PER DR WITT, GIVE 260 MG PHENOBARBITAL IV PUSH X1 AND REASSESS IN 30 MINUTES FOR ANOTHER DOSE. PRECEDEX OFF AT THIS TIME. PENDING DCR AGENT ARRIVAL. Original Note: 0915 DR WITT AT BEDSIDE TO DISCUSS PLAN OF CARE WITH PATIENT/FATHER. PLAN TO KEEP PT AT RASS -1 PER MD.
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
[2025-09-01] VITALS (114 sets, daily range): BP systolic 104–184; BP diastolic 71–119; PULSE 60–101; RESP 12–125; TEMP 36–37; O2SAT 89–100
[2025-09-01] MEDS: dexmedeTOMIDine in 0.9 % NaCL 400 MCG/100 ML PLAST..BAG 37.5 MCG IV ×2 (01:00→23:50)
--- NOTE | 2025-09-01 06:11 | PC.NURSE ---
2115 RN responded from inside neighboring patient's room at the sound of the bed alarm to find patient with his knees on the ground supporting himself with the side of the bed as other staff members hovered near to assist. Prior to movement of the patient vital signs read as follow: BP 134/70 HR 98/bpm RR 16/rpm Temp 36.8c. Neuro assessment unchanged from previous assessment. Patient denies pain and denies hitting his head. Patients' farther at bedside during this time, witnessed the fall, and states He just slid right out of bed as soon as you walked out of the door. With no obvious signs of trauma or bleeding, the pt was assisted with the help of two RNs to the upright position, standing on his own two feet. Bed alarm set back to its most sensitive trigger, as it was before the patient slid. Q15 vitals and neuro assessments unstable. Pt and and family taught again about safety and using the call light for help.
[2025-09-01] MEDS: dexmedeTOMIDine in 0.9 % NaCL 400 MCG/100 ML PLAST..BAG 25 MCG IV ×2 (08:10→12:03)
--- NOTE | 2025-09-01 08:48 | CM.DPC ---
Patient has ONE-TO-ONE sitter. Currently at max sedation: Precedex, Phenobarb, and Librium. Not ready for discharge. CM to re-evaluate tomorrow.
--- NOTE | 2025-09-01 09:23 | DIET.CONS2 ---
Dietary Inpatient Consultation Note Admission Date: 08/27/2025 18:31 40 y M admitted for alcohol withdrawal. Dietitian screened for LOS. EMR reviewed. Pt sedated and not appropriate for visit. 97.5 kg on 08/04/25. No weight loss within last month seen. 100% PO intakes recently. DFM reviewed, adequate meals and getting 1 ONS per day. Pt likely malnourished r/t severe alcohol and benzodiazepine abuse with inadequate vitamin/mineral and protein intake. Continue ONS and monitor po intakes. Diet: 08/28/25 Breakfast General (Regular) Diet Diet Modifications: Food Texture: Level 7 - Regular Liquid Consistency: Level 0 - Thin Nutrition Percent Meal Consumed 100% 08/31/25 18:00 Percent Meal Consumed 100% 08/31/25 13:52 Percent Meal Consumed 100% 08/31/25 10:00 Percent Meal Consumed 100% 08/30/25 18:00 Percent Meal Consumed 100% 08/30/25 09:50 Electronically Signed by: Selam Shelton 09/01/25 09:23 Clinical Dietitian [address] [address]
--- NOTE | 2025-09-01 14:32 | CM.DPC ---
Per RN Domenica Castorena, Director of AC and ICU, is aware of the on going treatment plan.
--- NOTE | 2025-09-01 14:33 | PC.NURSE ---
Addendum entered by Emerita Schmidt RN 09/01/25 18:02: 1500: Met with Cristiana Hunter RN, Domenica Castorena, Director of ACU/ICU, Risk management and pier worker to discuss patients case. DCR updated at this time. 1530: Advised to titrate down precedex for DCR evaluation. 1700: Dr. Best at bedside with Father, Sang in the room. Discussed treatment plan with patient and Father. Both agreeable to current plan of care. 1703: DCR social work case manager, Domenica, at bedside. Advised patient of his rights and plan of care. Patient agreeable at this time. Original Note: Patient became increasingly more agitated, attempting to pull lines and get out of bed. Increased precedex to 1.5 per protocol and MD orders. While trying to get patient comfortable he stated I want to leave AMA, I had this discussion 30 minutes ago. I advised patient I will let Dr. Best know his of wishes. Father later came out of room and stated he does not believe patient is well enough to leave AMA but would like sedation weaned off. Advised of above situation to Dr. Best and Case Management. During discussion with Dr. Best, I was advised to continue sedation per protocol because patient is not well enough to make his own decisions at this time due to his medical status.
[2025-09-01] MEDS: dexmedeTOMIDine in 0.9 % NaCL 400 MCG/100 ML PLAST..BAG 30 MCG IV ×2 (14:58→20:22)
[2025-09-01] MEDS: CARBOXYMETHYLCELLULOSE DROPS 1 DROPS EYE-BOTH (17:34)
--- NOTE | 2025-09-01 17:58 | CM.DPC ---
Discharge Plan Continued PET CARE ASSISTANT is informed by DCP Zeny that patient is waking up and reporting he wants to leave AMA. PET CARE ASSISTANT calls MARIBEL Metzger who evaluated patient last night, it is reported that patient was a PATRICE walkaway as [facility] declined due to patient's need for Phenobarital, [facility] declined due to hx of seizures and [facility] did not respond to DCR. There is concern for patient's difficulty to place in PATRICE facility due to his acute needs. DCR recommends involving risk management team due to concern for patient's chemical sedation at this time. PET CARE ASSISTANT calls [facility] and it is reported that they have PATRICE detox beds, PET CARE ASSISTANT re-dispatches DCR and faxes clinicals for review at [facility]. Risk Management team is involved in patient's case, Dr. Best determines that patient is not safe to leave AMA and if patient is not placed as PATRICE for detox, patient's withdrawal symptoms are to be managed at the hospital. Domenica LÓPEZ assigned to patient. [facility] declines patient due to concern for acute need for phenobarbital and withdrawal management medications. Domenica LÓPEZ calls [facility] once more and they decline patient. PET CARE ASSISTANT and Domenica LÓPEZ review this with hospitalist Dr. Best, it is reported that patient's withdrawal symptoms will be managed and monitored in the ICU. Plan: DCP to re-evaluate patient's presentation and withdrawal symptoms and follow up with DCR, patient and family regarding safe discharge plan. At this time patient is not safe and decisional to discharge. Urmila Roberts, MARINE ELECTRICIAN
[2025-09-02] VITALS (46 sets, daily range): BP systolic 104–173; BP diastolic 60–116; PULSE 68–127; RESP 16–40; TEMP 36.1–37.1; O2SAT 89–100
[2025-09-02] MEDS: ONDANSETRON 4 MG ODT SL (02:05)
[2025-09-02] MEDS: IBUPROFEN 400 MG TABLET PO (03:36)
[2025-09-02] MEDS: OLANZapine ODT 10 MG TAB PO (05:32)
--- NOTE | 2025-09-02 06:55 | PC.NURSE ---
During physician order's review, it was noted that the non-violent restraint order was entered as side rails x 4 with location of restraint as bilateral upper and bilateral lower extremities. The non-violent restraint order discussed with the hospitalist on duty were bilateral soft wrist restraints and bilateral soft ankle restraints which corresponds to the location being BUE and BLE. Discussion of these restraints were via Webex and video call. Hospitalist on duty was notified via Webex regarding non-violent restraint order's need for correction. No response was received at time of shift to shift endorsement.
--- NOTE | 2025-09-02 09:37 | PC.NURSE ---
Priority to obtain IV access this morning. pulp bleacher Rn states patient dislodged/pulled out multiple IV's. This RN attempted and was unable to obtain, ER nurse able to come up and placed a 18g to Left upper arm. She states he is very difficult stick, with hard deep veins, but she was able to visualize flush on ultrasound. Dr. Best was updated this morning on IV challenges, and will continue to follow.
[2025-09-02] MEDS: dexmedeTOMIDine in 0.9 % NaCL 400 MCG/100 ML PLAST..BAG 25 MCG IV (10:13)
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
[2025-09-02] MEDS: dexmedeTOMIDine in 0.9 % NaCL 400 MCG/100 ML PLAST..BAG 32.5 MCG IV (13:08)
[2025-09-02] MEDS: dexmedeTOMIDine in 0.9 % NaCL 400 MCG/100 ML PLAST..BAG 27.5 MCG IV (16:10)
--- NOTE | 2025-09-02 17:40 | PC.NURSE ---
Patient has been under 1:1 supervision today, assisting with his care. Titrating/weaning precedex as ordered to maintain RASS -2. Patient has been able to takes his po medications with yogurt and applesauce today, needs supervision and aspiration precautions continued with po intake. Patient has intermittent periods waking, attempting to pull at monitor/lines, and confusion. He has been able to answer some questions appropriately, knows his name, , age, and year. Thought it is still July. States he wants to move back to [place] where he has his best sponsor and support. He is concerned about his dad. Bed alarm on. Continue to monitor. Goal for DCR to see again when patient is medically stable per case management notes.
[2025-09-02] MEDS: dexmedeTOMIDine in 0.9 % NaCL 400 MCG/100 ML PLAST..BAG 20 MCG IV (20:16)
[2025-09-03] VITALS (33 sets, daily range): BP systolic 124–167; BP diastolic 76–108; PULSE 68–115; RESP 15–24; TEMP 36.3–37.1; O2SAT 92–96
[2025-09-03] MEDS: dexmedeTOMIDine in 0.9 % NaCL 400 MCG/100 ML PLAST..BAG 20 MCG IV ×2 (01:16→23:33)
[2025-09-03] MEDS: dexmedeTOMIDine in 0.9 % NaCL 400 MCG/100 ML PLAST..BAG 17.5 MCG IV (07:00)
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
[2025-09-03 10:04] LABS: Add Manual Diff / Slide Review NO; Hematocrit 43.3 % (41-53); Hemoglobin 15.1 g/dL (13.5-17.5); Lymphocytes Absolute Auto 1600 /uL (1100-4500); Mean Corpuscular HGB Conc 34.8 % (30-36); Mean Corpuscular Hemoglobin 33.1 PG (26-34); Mean Corpuscular Volume 95.2 fL (80-100); Platelet Count 176 X10^3/uL (150-400)
[2025-09-03 10:09] LABS: Alanine Aminotransferase 11 IU/L (<50); Albumin 4.1 g/dL (3.5-5.0); Albumin Globulin Ratio 1.4 (1.0-2.8); Alkaline Phosphatase 91 U/L (38-126); Blood Urea Nitrogen 6 mg/dL (9-20); Calcium 9.2 mg/dL (8.4-10.2); Carbon Dioxide 27 mmol/L (22-32); Chloride 105 mmol/L (98-107); Estimated Glomerular Filt Rate > 60 mL/min (>60); Globulin 3.0 g/dL (1.7-4.1); Glucose 89 mg/dL (70-99); HEMOLYSIS 18 (0-50); Potassium 4.2 mmol/L (3.4-5.1); Sodium 140 mmol/L (137-145); Total Protein 7.1 g/dL (6.3-8.2)
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
[2025-09-03] MEDS: SODIUM CHLORIDE 0.9% 1,000 ML 75 ML IV ×2 (11:17→23:10)
--- NOTE | 2025-09-03 15:51 | CM.DPNOTE ---
DCP note FROTHING MACHINE OPERATOR reviewed EMR per RN, plan to reduce precedex today. need to be off precedex/phenobarb prior to redispatching the DCR. per provider, still does not have capacity to make safe decisions for self due to withdrawal symptoms. FROTHING MACHINE OPERATOR met with pt in room. speech slurred, nonsensical at times. not oriented to situation. pleasant with this FROTHING MACHINE OPERATOR. FROTHING MACHINE OPERATOR got pt TV set up with the [employer] game. P: DCR pending medical improvement. does not have capacity to understand risks of signing out AMA, therefore, if pt attempts to leave, please notify [facility]. JUAN FRANCISCO Beltran
[2025-09-03] MEDS: dexmedeTOMIDine in 0.9 % NaCL 400 MCG/100 ML PLAST..BAG IV (19:41)
--- NOTE | 2025-09-03 21:30 | PC.NURSE ---
pt wanting to leave stating his dad not able to redirect or orient to hospital. escalated to unmanageable behavior. precedex started and ciwa used per charting to give ativan.
[2025-09-04] VITALS (93 sets, daily range): BP systolic 102–154; BP diastolic 66–120; PULSE 0–91; RESP 10–50; TEMP 36.3–37; O2SAT 89–100
[2025-09-04] MEDS: dexmedeTOMIDine in 0.9 % NaCL 400 MCG/100 ML PLAST..BAG 20 MCG IV (03:05)
--- NOTE | 2025-09-04 07:26 | PM.PN.1 ---
Subjective <Rodger Sheridan MD - Last Filed: 09/04/25 16:48> Subjective Interval history: Date Patient Seen: 09/04/2025 CC: Acute severe alcohol withdrawal HPI:? Per Dr. Russell: Patient is a 40-year-old male history of alcohol misuse disorder well known to this facility presenting wanting detox. He has been admitted twice for alcohol withdrawal and has previously left against medical advice both times. Long discussion with him he is adamant that he wants sober he wants to go to detox and he wants help. He has previously been sober for 3 weeks prior to his most recent bingeing episode. He has no other complaints. Reports that he drank just prior to arrival ? Interval Events: 08/27 (Dr. Amaro): New is 40-year-old male severe alcohol and benzodiazepine abuse seen at multiple institutions (Lives in [place]) began visiting the emergency department at [facility] August 24 wanting to be treated and then signing out Against Medical Advice multiple times. Patient returned 08/27 asking to be detoxed. ? Previous admission patient started withdrawing became very violent threw a table and threatened staff. Typically this happens between 12 and 24 hours after admission ? Patient returns in his state of intense agitation and with a blood alcohol of 439 and benzodiazepines on his urine tox screen. ? I was consulted to assist in managing this patient. In my extensive experience in management of severe alcohol withdrawal cases in my 30 years of practice, this case stands out as one of the most severe alcohol withdrawal. Furthermore, his withdrawal starting while very high levels of alcohol are detectable in the serum. ? I discussed with pharmacy and initiated the protocol he has had major medical centers of phenobarbital 10 milligrams/kilogram administered over 30 minutes. Adequate IV access initiating of Precedex drip. ? I have a very strong suspicion that will not be able to administer adequate sedation to treat this patient's withdrawal and maintain the airway of this patient at the required level of sedation required without intubation. ? Orders for admission we will follow initiating of sedation with emergency department available for rapid intubation if needed. ? 08/28 (Dr. Reed): The patient continues to experience wheezing from his asthma and tremors/restlessness from his alcohol withdrawal. His only complaint is that the Kerlix wrap on his right arm IV site is painful. He mumbles. When I asked him what he drinks he answers quite simply ?liquor?. There is also a possibility of lorazepam withdrawal. His alcohol level on admission was 380 at 3:00 p.m. yesterday. The CBC is normal and the CMP is normal with a glucose of 146. The liver enzymes are normal. He received routine doses of phenobarbital overnight and 2 doses of lorazepam. ? 08/29 (Dr. Reed): The patient's withdrawal has been quite smooth, mostly because of the significant doses of benzodiazepine, phenobarbital and Precedex that from prior experience we knew he would need. Today we will begin backing off on the Precedex and phenobarbital dosing, which could always be resumed at the higher doses if needed. Yesterday he was visited by the [facility] designated responder who discussed that once he is medically stable they would be able to probably detain him to treatment under current state law. The CBC is normal with an MCV of only 93. ? 08/30 (Dr. Amaro): Continuing to maintain a RASS score of -2 while deescalating Precedex and tapering phenobarbital patient did require 4 mg of intravenous lorazepam today for agitation ? 08/31 (Dr. Amaro): Patient is awake and eating hash browns and eggs. Now tolerating oral intake, in good spirits, with slurred speech but no acute distress. Continues to require weaning from sedation and close monitoring for rebound agitation. Mild nausea today and wheezing on exam. No acute electrolyte or metabolic derangements. Abnormal labs today (low RBC, low lymphocytes, elevated eosinophils) likely related to dilution, stress response, and underlying asthma, respectively. CBC otherwise normal. Father is present at bedside. On second visit, patient is stating that he wants to leave against medical advice ? 09/01 (Dr. Best): The patient continues to require high-dose phenobarbital and Precedex with the goal of treating alcohol withdrawal and associated symptoms of anxiety and wishing to leave the hospital. However, he elected not to leave the hospital and responded well to Precedex infusion. His father clearly states that when he is not in withdrawal that he is very cooperative and wishes to pursue alcohol treatment measures. ? 09/02 (Dr. Best): The patient remained, overnight, though awoke, removed IVs, and attempted to strike a nurse per overnight report. He is calm this morning, accepting replacement of IV catheter and resumption of Precedex. ? 09/03 (Dr. Best): The patient continues to have confusion, and removed IVs again yesterday. He is calm this morning, though difficult to understand with garbled speech. Chest x-ray today shows no evidence of aspiration. Team rounds conducted with nursing, case management and his father is updated on his condition. ? 09/04 (Dr. Sheridan): On first visit, patient sleeping comfortably. Per nursing, last night was uneventful. ? Labs reviewed and notable for: High RDW (15.0%), low lymphocytes (18.3%), high eosinophils (5.8%), low BUN (6 mg/dL) ? Imaging reviewed and notable for: 09/03 CXR Impression: No acute cardiopulmonary abnormality is seen. ? Intake/Output: In 2294, Out 901, Urine 0.39ml/kg/hr, Stool x0, Emesis x0. Balance +1393 ? Vitals reviewed and notable for: BP 142/97, all other vitals WNL ? Physical Exam: General: Asleep, well appearing, in no distress.? HEENT: Unremarkable. Heart: RRR, no murmur or gallop. Lungs: CTAB, no wheezes, rales, or rhonchi. Normal work of breathing. Abdomen: Normal bowel sounds. Extremities: No edema, peripheral pulses intact. ? A/P: 40-year-old male with severe alcohol and benzodiazepine withdrawal, currently improving on protocolized ICU management with ongoing sedative wean. Overall, labs consistent with severe withdrawal in the setting of physiologic stress, asthma, and positive fluid balance. ? #Severe combined alcohol and benzodiazepine withdrawal: -Severe agitation and violent behavior changes in his case typically begin after 12 hours of hospitalization when alcohol levels have de-escalated -He continues to have ongoing agitation and intermittent combative behavior, attempting to strike nursing staff 09/01, which is not typical for him according to his father, who states that when he has not going through withdrawal he is cooperative and interested in alcoholic rehabilitation programs. Therefore, we will continue to treat alcohol withdrawal with the below measures until he is back to his baseline state. -Scheduled phenobarbital 65 mg q4 hours and monitor. -Scheduled Librium 25 mg every 6 hours along with as needed lorazepam. -Continue Precedex IV as needed, wean as tolerated. -Continue PO clonidine 0.1mg BID -Start PO quetiapine 50mg BID -Consider naltrexone once stabilized -Continue oral thiamine -Per patient's father, has sponsor and is involved with AA ? #Interventions for severe agitation: -Phenobarbital 65mg IV q4hrs -Titrate Precedex drip to JACINTO score -2 -Lorazepam 2 mg IV Q 15 minutes PRN ? #Asthma, chronic -Monitor for respiratory symptoms, no bronchodilator initiated at this time -Reassess lungs each shift ? #DVT prophylaxis: -SCDs only ? Code status: -Full code ? Disposition: -Inpatient ICU likely will require additional 2-3 days or more to detox. [facility] visited on the hospital day 2 and 5, they are prepared to return when he is medically stable and detain him for treatment. Additional: Looking at transitioning to oral medications as able for discharge planning. <Cristal Anderson - Last Filed: 09/04/25 12:30> Subjective Interval history: Date Patient Seen: 09/04/2025 CC: Acute severe alcohol withdrawal HPI:? Per Dr. Russell: Patient is a 40-year-old male history of alcohol misuse disorder well known to this facility presenting wanting detox. He has been admitted twice for alcohol withdrawal and has previously left against medical advice both times. Long discussion with him he is adamant that he wants sober he wants to go to detox and he wants help. He has previously been sober for 3 weeks prior to his most recent bingeing episode. He has no other complaints. Reports that he drank just prior to arrival ? Interval Events: 08/27 (Dr. Amaro): New is 40-year-old male severe alcohol and benzodiazepine abuse seen at multiple institutions (Lives in [place]) began visiting the emergency department at [facility] August 24 wanting to be treated and then signing out Against Medical Advice multiple times. Patient returned 08/27 asking to be detoxed. ? Previous admission patient started withdrawing became very violent threw a table and threatened staff. Typically this happens between 12 and 24 hours after admission ? Patient returns in his state of intense agitation and with a blood alcohol of 439 and benzodiazepines on his urine tox screen. ? I was consulted to assist in managing this patient. In my extensive experience in management of severe alcohol withdrawal cases in my 30 years of practice, this case stands out as one of the most severe alcohol withdrawal. Furthermore, his withdrawal starting while very high levels of alcohol are detectable in the serum. ? I discussed with pharmacy and initiated the protocol he has had major medical centers of phenobarbital 10 milligrams/kilogram administered over 30 minutes. Adequate IV access initiating of Precedex drip. ? I have a very strong suspicion that will not be able to administer adequate sedation to treat this patient's withdrawal and maintain the airway of this patient at the required level of sedation required without intubation. ? Orders for admission we will follow initiating of sedation with emergency department available for rapid intubation if needed. ? 08/28 (Dr. Reed): The patient continues to experience wheezing from his asthma and tremors/restlessness from his alcohol withdrawal. His only complaint is that the Kerlix wrap on his right arm IV site is painful. He mumbles. When I asked him what he drinks he answers quite simply ?liquor?. There is also a possibility of lorazepam withdrawal. His alcohol level on admission was 380 at 3:00 p.m. yesterday. The CBC is normal and the CMP is normal with a glucose of 146. The liver enzymes are normal. He received routine doses of phenobarbital overnight and 2 doses of lorazepam. ? 08/29 (Dr. Reed): The patient's withdrawal has been quite smooth, mostly because of the significant doses of benzodiazepine, phenobarbital and Precedex that from prior experience we knew he would need. Today we will begin backing off on the Precedex and phenobarbital dosing, which could always be resumed at the higher doses if needed. Yesterday he was visited by the [facility] designated responder who discussed that once he is medically stable they would be able to probably detain him to treatment under current state law. The CBC is normal with an MCV of only 93. ? 08/30 (Dr. Amaro): Continuing to maintain a RASS score of -2 while deescalating Precedex and tapering phenobarbital patient did require 4 mg of intravenous lorazepam today for agitation ? 08/31 (Dr. Amaro): Patient is awake and eating hash browns and eggs. Now tolerating oral intake, in good spirits, with slurred speech but no acute distress. Continues to require weaning from sedation and close monitoring for rebound agitation. Mild nausea today and wheezing on exam. No acute electrolyte or metabolic derangements. Abnormal labs today (low RBC, low lymphocytes, elevated eosinophils) likely related to dilution, stress response, and underlying asthma, respectively. CBC otherwise normal. Father is present at bedside. On second visit, patient is stating that he wants to leave against medical advice ? 09/01 (Dr. Best): The patient continues to require high-dose phenobarbital and Precedex with the goal of treating alcohol withdrawal and associated symptoms of anxiety and wishing to leave the hospital. However, he elected not to leave the hospital and responded well to Precedex infusion. His father clearly states that when he is not in withdrawal that he is very cooperative and wishes to pursue alcohol treatment measures. ? 09/02 (Dr. Best): The patient remained, overnight, though awoke, removed IVs, and attempted to strike a nurse per overnight report. He is calm this morning, accepting replacement of IV catheter and resumption of Precedex. ? 09/03 (Dr. Best): The patient continues to have confusion, and removed IVs again yesterday. He is calm this morning, though difficult to understand with garbled speech. Chest x-ray today shows no evidence of aspiration. Team rounds conducted with nursing, case management and his father is updated on his condition. ? 09/04 (Dr. Sheridan): On first visit, patient sleeping comfortably. Per nursing, last night was uneventful. ? Labs reviewed and notable for: High RDW (15.0%), low lymphocytes (18.3%), high eosinophils (5.8%), low BUN (6 mg/dL) ? Imaging reviewed and notable for: 09/03 CXR Impression: No acute cardiopulmonary abnormality is seen. ? Intake/Output: In 2294, Out 901, Urine 0.39ml/kg/hr, Stool x0, Emesis x0. Balance +1393 ? Vitals reviewed and notable for: BP 142/97, all other vitals WNL ? Physical Exam: General: Asleep, well appearing, in no distress.? HEENT: Unremarkable. Heart: RRR, no murmur or gallop. Lungs: CTAB, no wheezes, rales, or rhonchi. Normal work of breathing. Abdomen: Normal bowel sounds. Extremities: No edema, peripheral pulses intact. ? A/P: 40-year-old male with severe alcohol and benzodiazepine withdrawal, currently improving on protocolized ICU management with ongoing sedative wean. Overall, labs consistent with severe withdrawal in the setting of physiologic stress, asthma, and positive fluid balance. ? #Severe combined alcohol and benzodiazepine withdrawal: -Severe agitation and violent behavior changes in his case typically begin after 12 hours of hospitalization when alcohol levels have de-escalated -He continues to have ongoing agitation and intermittent combative behavior, attempting to strike nursing staff 09/01, which is not typical for him according to his father, who states that when he has not going through withdrawal he is cooperative and interested in alcoholic rehabilitation programs. Therefore, we will continue to treat alcohol withdrawal with the below measures until he is back to his baseline state. -Scheduled phenobarbital 65 mg q4 hours and monitor. -Scheduled Librium 25 mg every 6 hours along with as needed lorazepam. -Continue Precedex IV as needed, wean as tolerated. -Continue PO clonidine 0.1mg BID -Start PO quetiapine 50mg BID -Consider naltrexone once stabilized -Continue oral thiamine -Per patient's father, has sponsor and is involved with AA ? #Interventions for severe agitation: -Phenobarbital 65mg IV q4hrs -Titrate Precedex drip to JACINTO score -2 -Lorazepam 2 mg IV Q 15 minutes PRN ? #Asthma, chronic -Monitor for respiratory symptoms, no bronchodilator initiated at this time -Reassess lungs each shift ? #DVT prophylaxis: -SCDs only ? Code status: -Full code ? Disposition: -Inpatient ICU likely will require additional 2-3 days or more to detox. [facility] visited on the hospital day 2 and 5, they are prepared to return when he is medically stable and detain him for treatment. Exam <Rodger Sheridan MD - Last Filed: 09/04/25 16:48> Vital Signs (past 8 hours): - 09/04/25 00:00 09/04/25 00:20 09/04/25 01:00 Temperature 98.6 F Pulse Rate 78 69 Respiratory Rate 20 20 20 Blood Pressure 127/90 127/90 135/90 Pulse Oximetry 94 94 09/04/25 02:00 09/04/25 03:00 09/04/25 04:00 Temperature 98.6 F Pulse Rate 68 68 68 Respiratory Rate 18 17 16 Blood Pressure 137/87 146/91 H 154/102 H Pulse Oximetry 93 94 95 09/04/25 05:00 09/04/25 06:00 Temperature Pulse Rate 69 66 Respiratory Rate 16 15 Blood Pressure 147/91 H 142/97 H Pulse Oximetry 95 96 Oxygen Delivery Method Room Air Oxygen Flow Rate 0 Objective <Rodger Sheridan MD - Last Filed: 09/04/25 16:48> Labs 09/03/25 09:30 09/03/25 09:30 Labs: Laboratory Results - last 24 hr 09/03/25 09:30 WBC 9.0 RBC 4.55 Hgb 15.1 Hct 43.3 MCV 95.2 MCH 33.1 MCHC 34.8 RDW 15.0 H Plt Count 176 Neut % (Auto) 66.0 Lymph % (Auto) 18.3 L Tucker % (Auto) 9.4 Eos % (Auto) 5.8 H Baso % (Auto) 0.5 Neut # (Auto) 5900 Lymph # (Auto) 1600 Tucker # (Auto) 800 Eos # (Auto) 500 H Baso # (Auto) 0 Sodium 140 Potassium 4.2 Chloride 105 Carbon Dioxide 27 BUN 6 L Creatinine 0.74 Estimated GFR > 60 BUN/Creatinine Ratio 8.1 Glucose 89 Calcium 9.2 Total Bilirubin 0.4 AST 21 ALT 11 Alkaline Phosphatase 91 Total Protein 7.1 Albumin 4.1 Globulin 3.0 Albumin/Globulin Ratio 1.4 PFSH <Rodger Sheridan MD - Last Filed: 09/04/25 16:48> Medical History Asthma Alcohol abuse Social History household members: family alcohol intake: current Assessment & Plan <Rodger Sheridan MD - Last Filed: 09/04/25 16:48> Time-Based Coding :: [TOTAL MINUTES] spent with patient and on the chart (including review of chart, obtaining history, exam, reviewing outside data, placing orders, documenting exam and treatment plan, and counseling patient) on [DATE].
[2025-09-04] MEDS: dexmedeTOMIDine in 0.9 % NaCL 400 MCG/100 ML PLAST..BAG 17.5 MCG IV (08:08)
[2025-09-04] MEDS: SODIUM CHLORIDE 0.9% 1,000 ML 75 ML IV (13:15)
--- NOTE | 2025-09-04 14:08 | CM.DPC ---
DCP Cont: Per MD, plan is to wean off the Pressedex/sedation medications to PO meds and will start Seroquel po this AM to see if this helps pt's mentation as he has been confused with some hallucinations likely from abuse of substances over a period of time. If pt becomes more A&O as sedation weaned and wants to leave AMA, staff to notify [facility] to safely escort pt off premises and to call [place] [employer] as pt has been meeting criteria for Involuntary Detainment under [place] Law. SW met bedside with pt as he was asking for assist with calling his brother but could not figure out how to access his phone contacts and began discussing things without a linear line of thought process and difficult to understand. Pt not yet medically stable for assessment by [facility] but if pt can be maintained off sedation meds and more A&O will need to confirm pt able to complete ADLs independently and [facility] to be called for [place]. JUAN FRANCISCO Dejesus
[2025-09-04] MEDS: dexmedeTOMIDine in 0.9 % NaCL 400 MCG/100 ML PLAST..BAG 12.5 MCG IV (19:44)
[2025-09-05] VITALS (120 sets, daily range): BP systolic 105–175; BP diastolic 78–113; PULSE 59–94; RESP 12–31; TEMP 36.6–37.1; O2SAT 89–97
[2025-09-05] MEDS: SODIUM CHLORIDE 0.9% 1,000 ML 75 ML IV ×2 (00:40→13:28)
[2025-09-05] MEDS: dexmedeTOMIDine in 0.9 % NaCL 400 MCG/100 ML PLAST..BAG 17.5 MCG IV (02:20)
--- NOTE | 2025-09-05 07:23 | PC.NURSE ---
Air Conditioning Technician Note-Patient continues to be agitated/restless with intermittent delusions and hallucinations, but tries to be cooperative. Remains on Precedex gtt. 0.4mcg at start of shift, titrated up to 0.7mcg by MN. 2mg IV Ativan given x2 before MN, but didn't help with anxiety/restlessness. Scheduled phenobarbitol given, was sleeping when PO Librium due. IV Dilaudid given for back pain and headache-effective. Started to titrate Precedex down in am, at 0.5mcg at change of shift.
[2025-09-05] MEDS: THIAMINE 100 MG TABLET PO (08:27)
[2025-09-05] MEDS: MULTIVITAMIN 1 TABLET 1 TAB PO (08:27)
[2025-09-05] MEDS: dexmedeTOMIDine in 0.9 % NaCL 400 MCG/100 ML PLAST..BAG IV (09:48)
--- NOTE | 2025-09-05 12:46 | CM.DPNOTE ---
DCP Continued: Reviewed EMR and team rounds for pt?s medical status. Per hospitalist, will be titrating down pressedex and sedation medications today and likely increasing Seroquel doses due to pt behaviors/hallucinations. Not medically cleared yet. Per TIRE WRAPPER, pt hallucinating in room but re-directable; mainly has difficulty in evening time with cognition. Pt did state that he is hopeful to return to [facility] if available (history of attending and had 9mo of sobriety afterwards). Plan: Following for medical clearance for [facility] dispatch. CM Team will continue to follow for coordination of discharge plans. JOÃO Patiño
--- NOTE | 2025-09-05 13:40 | P.PN_ITS ---
Subjective <Rodger Sheridan MD - Last Filed: 09/05/25 16:35> Subjective Interval history: Date Patient Seen: 09/05/2025 CC: Acute severe alcohol withdrawal HPI:? Per Dr. Russell: Patient is a 40-year-old male history of alcohol misuse disorder well known to this facility presenting wanting detox. He has been admitted twice for alcohol withdrawal and has previously left against medical advice both times. Long discussion with him he is adamant that he wants sober he wants to go to detox and he wants help. He has previously been sober for 3 weeks prior to his most recent bingeing episode. He has no other complaints. Reports that he drank just prior to arrival. ? Interval Events: 08/27 (Dr. Amaro): New is 40-year-old male severe alcohol and benzodiazepine abuse seen at multiple institutions (Lives in [place]) began visiting the emergency department at [facility] August 24 wanting to be treated and then signing out Against Medical Advice multiple times. Patient returned 08/27 asking to be detoxed. ? Previous admission patient started withdrawing became very violent threw a table and threatened staff. Typically this happens between 12 and 24 hours after admission ? Patient returns in his state of intense agitation and with a blood alcohol of 439 and benzodiazepines on his urine tox screen. ? I was consulted to assist in managing this patient. In my extensive experience in management of severe alcohol withdrawal cases in my 30 years of practice, this case stands out as one of the most severe alcohol withdrawal. Furthermore, his withdrawal starting while very high levels of alcohol are detectable in the serum. ? I discussed with pharmacy and initiated the protocol he has had [facility] of phenobarbital 10 milligrams/kilogram administered over 30 minutes. Adequate IV access initiating of Precedex drip. ? I have a very strong suspicion that will not be able to administer adequate sedation to treat this patient's withdrawal and maintain the airway of this patient at the required level of sedation required without intubation. ? Orders for admission we will follow initiating of sedation with emergency department available for rapid intubation if needed. ? 08/28 (Dr. Reed): The patient continues to experience wheezing from his asthma and tremors/restlessness from his alcohol withdrawal. His only complaint is that the Kerlix wrap on his right arm IV site is painful. He mumbles. When I asked him what he drinks he answers quite simply ?liquor?. There is also a possibility of lorazepam withdrawal. His alcohol level on admission was 380 at 3:00 p.m. yesterday. The CBC is normal and the CMP is normal with a glucose of 146. The liver enzymes are normal. He received routine doses of phenobarbital overnight and 2 doses of lorazepam. ? 08/29 (Dr. Reed): The patient's withdrawal has been quite smooth, mostly because of the significant doses of benzodiazepine, phenobarbital and Precedex that from prior experience we knew he would need. Today we will begin backing off on the Precedex and phenobarbital dosing, which could always be resumed at the higher doses if needed. Yesterday he was visited by the [facility] designated responder who discussed that once he is medically stable they would be able to probably detain him to treatment under current state law. The CBC is normal with an MCV of only 93. ? 08/30 (Dr. Amaro): Continuing to maintain a RASS score of -2 while deescalating Precedex and tapering phenobarbital patient did require 4 mg of intravenous lorazepam today for agitation ? 08/31 (Dr. Amaro): Patient is awake and eating hash browns and eggs. Now tolerating oral intake, in good spirits, with slurred speech but no acute distress. Continues to require weaning from sedation and close monitoring for rebound agitation. Mild nausea today and wheezing on exam. No acute electrolyte or metabolic derangements. Abnormal labs today (low RBC, low lymphocytes, elevated eosinophils) likely related to dilution, stress response, and underlying asthma, respectively. CBC otherwise normal. Father is present at bedside. On second visit, patient is stating that he wants to leave against medical advice ? 09/01 (Dr. Best): The patient continues to require high-dose phenobarbital and Precedex with the goal of treating alcohol withdrawal and associated symptoms of anxiety and wishing to leave the hospital. However, he elected not to leave the hospital and responded well to Precedex infusion. His father clearly states that when he is not in withdrawal that he is very cooperative and wishes to pursue alcohol treatment measures. ? 09/02 (Dr. Best): The patient remained, overnight, though awoke, removed IVs, and attempted to strike a nurse per overnight report. He is calm this morning, accepting replacement of IV catheter and resumption of Precedex. ? 09/03 (Dr. Best): The patient continues to have confusion, and removed IVs again yesterday. He is calm this morning, though difficult to understand with garbled speech. Chest x-ray today shows no evidence of aspiration. Team rounds conducted with nursing, case management and his father is updated on his condition. ? 09/04 (Dr. Sheridan): On first visit, patient sleeping comfortably. Per nursing, last night was uneventful. ? 09/05 (Dr. Sheridan): Patient is upright in bed with slurred speech and confusion. He describes his mood as frustrated and says this is because of his father. Father has not been in the room today. He denies pain. ? Labs reviewed and notable for: No new labs.? ? Imaging reviewed and notable for: No new imaging. ? Intake/Output: In 3256, Out 500, Urine 0.22ml/kg/hr, Stool x0, Emesis x0. Balance +2756 ? Vitals reviewed and notable for: BP: 2x elevated to 152/96, 139/92. Other vitals WNL ? Physical Exam: General: Sitting up in bed, slurred speech, intermittently coherent. Mildly agitated.? HEENT: Unremarkable Heart: RRR, no murmur or gallop Lungs: CTAB, no wheezes, rales, or rhonchi. Normal work of breathing Abdomen: Normal bowel sounds. Extremities: No edema, peripheral pulses intact. ? A/P: 40-year-old male with severe alcohol and benzodiazepine withdrawal, currently improving on protocolized ICU management with ongoing sedative wean. ? #Severe combined alcohol and benzodiazepine withdrawal: -Severe agitation and violent behavior changes in his case typically begin after 12 hours of hospitalization when alcohol levels have de-escalated -He continues to have ongoing agitation and intermittent combative behavior, attempting to strike nursing staff 09/01, which is not typical for him according to his father, who states that when he has not going through withdrawal he is cooperative and interested in alcoholic rehabilitation programs. Therefore, we will continue to treat alcohol withdrawal with the below measures until he is back to his baseline state. -Scheduled phenobarbital 65 mg q8 hours and monitor. -Scheduled PO Librium 25 mg q6 hours -PRN PO lorazepam 2 mg q6 hours. -Continue Precedex IV as needed, wean as tolerated. -Continue PO clonidine 0.1 mg BID -Continue PO quetiapine 75 mg BID -Consider naltrexone once stabilized -Continue oral thiamine -Per patient's father, has sponsor and is involved with AA ? #Interventions for severe agitation: -Phenobarbital 65 mg IV q8hrs -Titrate Precedex drip to JACINTO score -2 -Lorazepam 2 mg IV q15 minutes PRN ? #Asthma, chronic -Monitor for respiratory symptoms, no bronchodilator initiated at this time -Reassess lungs each shift ? #DVT prophylaxis: -SCDs only ? Code status: -Full code ? Disposition: -Inpatient ICU likely will require additional 2-3 days or more to detox. [facility] on the hospital day 2 and 5, they are prepared to return when he is medically stable and detain him for treatment. ? AJ Additional: Looking at transitioning to oral medications as able for discharge planning. Decreasing pehnobarbital, weaning Precedex, and continuing Librium. Increase Seroquel to attempt to avoid using Precedex again over awake overnight counselor. <Cristal Anderson - Last Filed: 09/05/25 15:06> Subjective Date Patient Seen: 09/05/25 Interval history: Date Patient Seen: 09/05/2025 CC: Acute severe alcohol withdrawal HPI:? Per Dr. Russell: Patient is a 40-year-old male history of alcohol misuse disorder well known to this facility presenting wanting detox. He has been admitted twice for alcohol withdrawal and has previously left against medical advice both times. Long discussion with him he is adamant that he wants sober he wants to go to detox and he wants help. He has previously been sober for 3 weeks prior to his most recent bingeing episode. He has no other complaints. Reports that he drank just prior to arrival. ? Interval Events: 08/27 (Dr. Amaro): New is 40-year-old male severe alcohol and benzodiazepine abuse seen at multiple institutions (Lives in [place]) began visiting the emergency department at [facility] August 24 wanting to be treated and then signing out Against Medical Advice multiple times. Patient returned 08/27 asking to be detoxed. ? Previous admission patient started withdrawing became very violent threw a table and threatened staff. Typically this happens between 12 and 24 hours after admission ? Patient returns in his state of intense agitation and with a blood alcohol of 439 and benzodiazepines on his urine tox screen. ? I was consulted to assist in managing this patient. In my extensive experience in management of severe alcohol withdrawal cases in my 30 years of practice, this case stands out as one of the most severe alcohol withdrawal. Furthermore, his withdrawal starting while very high levels of alcohol are detectable in the serum. ? I discussed with pharmacy and initiated the protocol he has had [facility] of phenobarbital 10 milligrams/kilogram administered over 30 minutes. Adequate IV access initiating of Precedex drip. ? I have a very strong suspicion that will not be able to administer adequate sedation to treat this patient's withdrawal and maintain the airway of this patient at the required level of sedation required without intubation. ? Orders for admission we will follow initiating of sedation with emergency department available for rapid intubation if needed. ? 08/28 (Dr. Reed): The patient continues to experience wheezing from his asthma and tremors/restlessness from his alcohol withdrawal. His only complaint is that the Kerlix wrap on his right arm IV site is painful. He mumbles. When I asked him what he drinks he answers quite simply ?liquor?. There is also a possibility of lorazepam withdrawal. His alcohol level on admission was 380 at 3:00 p.m. yesterday. The CBC is normal and the CMP is normal with a glucose of 146. The liver enzymes are normal. He received routine doses of phenobarbital overnight and 2 doses of lorazepam. ? 08/29 (Dr. Reed): The patient's withdrawal has been quite smooth, mostly because of the significant doses of benzodiazepine, phenobarbital and Precedex that from prior experience we knew he would need. Today we will begin backing off on the Precedex and phenobarbital dosing, which could always be resumed at the higher doses if needed. Yesterday he was visited by the [facility] designated responder who discussed that once he is medically stable they would be able to probably detain him to treatment under current state law. The CBC is normal with an MCV of only 93. ? 08/30 (Dr. Amaro): Continuing to maintain a RASS score of -2 while deescalating Precedex and tapering phenobarbital patient did require 4 mg of intravenous lorazepam today for agitation ? 08/31 (Dr. Amaro): Patient is awake and eating hash browns and eggs. Now tolerating oral intake, in good spirits, with slurred speech but no acute distress. Continues to require weaning from sedation and close monitoring for rebound agitation. Mild nausea today and wheezing on exam. No acute electrolyte or metabolic derangements. Abnormal labs today (low RBC, low lymphocytes, elevated eosinophils) likely related to dilution, stress response, and underlying asthma, respectively. CBC otherwise normal. Father is present at bedside. On second visit, patient is stating that he wants to leave against medical advice ? 09/01 (Dr. Best): The patient continues to require high-dose phenobarbital and Precedex with the goal of treating alcohol withdrawal and associated symptoms of anxiety and wishing to leave the hospital. However, he elected not to leave the hospital and responded well to Precedex infusion. His father clearly states that when he is not in withdrawal that he is very cooperative and wishes to pursue alcohol treatment measures. ? 09/02 (Dr. Best): The patient remained, overnight, though awoke, removed IVs, and attempted to strike a nurse per overnight report. He is calm this morning, accepting replacement of IV catheter and resumption of Precedex. ? 09/03 (Dr. Best): The patient continues to have confusion, and removed IVs again yesterday. He is calm this morning, though difficult to understand with garbled speech. Chest x-ray today shows no evidence of aspiration. Team rounds conducted with nursing, case management and his father is updated on his condition. ? 09/04 (Dr. Sheridan): On first visit, patient sleeping comfortably. Per nursing, last night was uneventful. ? 09/05 (Dr. Sheridan): Patient is upright in bed with slurred speech and confusion. He describes his mood as frustrated and says this is because of his father. Father has not been in the room today. He denies pain. ? Labs reviewed and notable for: No new labs.? ? Imaging reviewed and notable for: No new imaging. ? Intake/Output: In 3256, Out 500, Urine 0.22ml/kg/hr, Stool x0, Emesis x0. Balance +2756 ? Vitals reviewed and notable for: BP: 2x elevated to 152/96, 139/92. Other vitals WNL ? Physical Exam: General: Sitting up in bed, slurred speech, intermittently coherent. Mildly agitated.? HEENT: Unremarkable Heart: RRR, no murmur or gallop Lungs: CTAB, no wheezes, rales, or rhonchi. Normal work of breathing Abdomen: Normal bowel sounds. Extremities: No edema, peripheral pulses intact. ? A/P: 40-year-old male with severe alcohol and benzodiazepine withdrawal, currently improving on protocolized ICU management with ongoing sedative wean. ? #Severe combined alcohol and benzodiazepine withdrawal: -Severe agitation and violent behavior changes in his case typically begin after 12 hours of hospitalization when alcohol levels have de-escalated -He continues to have ongoing agitation and intermittent combative behavior, attempting to strike nursing staff 09/01, which is not typical for him according to his father, who states that when he has not going through withdrawal he is cooperative and interested in alcoholic rehabilitation programs. Therefore, we will continue to treat alcohol withdrawal with the below measures until he is back to his baseline state. -Scheduled phenobarbital 65 mg q8 hours and monitor. -Scheduled PO Librium 25 mg q6 hours -PRN PO lorazepam 2 mg q6 hours. -Continue Precedex IV as needed, wean as tolerated. -Continue PO clonidine 0.1 mg BID -Continue PO quetiapine 75 mg BID -Consider naltrexone once stabilized -Continue oral thiamine -Per patient's father, has sponsor and is involved with AA ? #Interventions for severe agitation: -Phenobarbital 65 mg IV q8hrs -Titrate Precedex drip to JACINTO score -2 -Lorazepam 2 mg IV q15 minutes PRN ? #Asthma, chronic -Monitor for respiratory symptoms, no bronchodilator initiated at this time -Reassess lungs each shift ? #DVT prophylaxis: -SCDs only ? Code status: -Full code ? Disposition: -Inpatient ICU likely will require additional 2-3 days or more to detox. [facility] hospital day 2 and 5, they are prepared to return when he is medically stable and detain him for treatment. ? Additional: Looking at transitioning to oral medications as able for discharge planning. Exam <Rodger Sheridan MD - Last Filed: 09/05/25 16:35> Vital Signs (past 8 hours): - 09/05/25 05:45 09/05/25 06:00 09/05/25 06:01 Temperature Pulse Rate 69 68 Respiratory Rate Blood Pressure 152/96 H Pulse Oximetry 94 97 Oxygen Delivery Method Oxygen Flow Rate 09/05/25 06:01 09/05/25 06:15 09/05/25 07:00 Temperature Pulse Rate 69 70 81 Respiratory Rate 17 Blood Pressure Pulse Oximetry 94 96 96 Oxygen Delivery Method Oxygen Flow Rate 09/05/25 07:15 09/05/25 07:30 09/05/25 07:36 Temperature Pulse Rate 76 75 Respiratory Rate 21 27 H Blood Pressure 131/87 Pulse Oximetry Oxygen Delivery Method Oxygen Flow Rate 09/05/25 07:36 09/05/25 07:45 09/05/25 08:00 Temperature Pulse Rate 75 75 74 Respiratory Rate 18 21 14 Blood Pressure Pulse Oximetry 94 93 92 Oxygen Delivery Method Oxygen Flow Rate 09/05/25 08:00 09/05/25 08:26 09/05/25 08:30 Temperature Pulse Rate 78 79 Respiratory Rate 12 Blood Pressure 129/90 Pulse Oximetry 94 Oxygen Delivery Method Room Air Oxygen Flow Rate 09/05/25 08:45 09/05/25 09:00 09/05/25 09:00 Temperature 98.3 F Pulse Rate 87 87 Respiratory Rate 16 15 Blood Pressure Pulse Oximetry Oxygen Delivery Method Oxygen Flow Rate 09/05/25 09:04 09/05/25 09:04 09/05/25 09:15 Temperature Pulse Rate 86 85 Respiratory Rate 15 20 Blood Pressure 139/92 H Pulse Oximetry Oxygen Delivery Method Oxygen Flow Rate 09/05/25 09:30 09/05/25 09:45 09/05/25 09:56 Temperature Pulse Rate 86 90 Respiratory Rate 21 25 H Blood Pressure 156/111 H Pulse Oximetry Oxygen Delivery Method Oxygen Flow Rate 09/05/25 09:56 09/05/25 10:00 09/05/25 10:00 Temperature Pulse Rate 82 81 Respiratory Rate 21 23 Blood Pressure Pulse Oximetry 96 Oxygen Delivery Method Oxygen Flow Rate 0 09/05/25 10:15 09/05/25 10:17 09/05/25 10:17 Temperature Pulse Rate 85 86 Respiratory Rate 19 21 Blood Pressure 147/96 H Pulse Oximetry 96 Oxygen Delivery Method Oxygen Flow Rate 09/05/25 10:30 09/05/25 10:45 09/05/25 11:00 Temperature 98.7 F Pulse Rate 87 86 Respiratory Rate 20 15 Blood Pressure Pulse Oximetry Oxygen Delivery Method Oxygen Flow Rate 09/05/25 11:00 09/05/25 11:03 09/05/25 11:03 Temperature Pulse Rate 81 81 Respiratory Rate 18 20 Blood Pressure 139/103 H Pulse Oximetry 95 Oxygen Delivery Method Oxygen Flow Rate 09/05/25 11:15 09/05/25 11:30 09/05/25 12:00 Temperature Pulse Rate 84 91 H 82 Respiratory Rate 16 Blood Pressure Pulse Oximetry Oxygen Delivery Method Oxygen Flow Rate 09/05/25 12:15 09/05/25 12:22 09/05/25 12:30 Temperature Pulse Rate 80 92 H 80 Respiratory Rate 20 20 24 Blood Pressure Pulse Oximetry Oxygen Delivery Method Oxygen Flow Rate Oxygen Delivery Method Room Air Oxygen Flow Rate 0 Objective <Rodger Sheridan MD - Last Filed: 09/05/25 16:35> Labs 09/03/25 09:30 09/03/25 09:30 PFSH <Rodger Sheridan MD - Last Filed: 09/05/25 16:35> Medical History Asthma Alcohol abuse Social History household members: family alcohol intake: current Assessment & Plan <Rodger Sheridan MD - Last Filed: 09/05/25 16:35> Time-Based Coding :: [TOTAL MINUTES] spent with patient and on the chart (including review of chart, obtaining history, exam, reviewing outside data, placing orders, documenting exam and treatment plan, and counseling patient) on [DATE].
--- NOTE | 2025-09-05 16:59 | PC.NURSE ---
Patient has required 1:1 supervision this shift. Requiring re-directing, distraction techniques for agitation, restlessness, and confusion. Patient has attempted to pull out his IV line, patient has removed telemetry and pulse ox through out the day. Patient attempts to get out of bed,and has difficulty following safety directions. Patient's conversation frequenting talking about deaths of his mother and grandmother. Patient has held call light up to his ear and has conversations that he believes he is on his phone. Dr. Sheridan updated on patient's increasing agitation and delusions, have been unable to wean off precedex today. Attempting to titrate to RASS of 0 (alert and calm). CIWA with ativan continues but has not been effective for agitation and delusion today. MD increasing seroquel dose tonight. MIDLINE to KJ remains intact at this time. Patient has been able to eat and drink with assistance only. Bed alarm on, continue to monitor closely.
[2025-09-05] MEDS: dexmedeTOMIDine in 0.9 % NaCL 400 MCG/100 ML PLAST..BAG 15 MCG IV (18:59)
[2025-09-05] MEDS: dexmedeTOMIDine in 0.9 % NaCL 400 MCG/100 ML PLAST..BAG 37.5 MCG IV (21:00)
[2025-09-05] MEDS: dexmedeTOMIDine in 0.9 % NaCL 400 MCG/100 ML PLAST..BAG 32.5 MCG IV (23:59)
[2025-09-06] VITALS (97 sets, daily range): BP systolic 98–181; BP diastolic 62–110; PULSE 53–90; RESP 11–35; TEMP 36.4–37.2; O2SAT 86–97
[2025-09-06] MEDS: SODIUM CHLORIDE 0.9% 1,000 ML 75 ML IV ×2 (01:58→14:56)
[2025-09-06] MEDS: dexmedeTOMIDine in 0.9 % NaCL 400 MCG/100 ML PLAST..BAG 22.5 MCG IV (03:24)
[2025-09-06] MEDS: dexmedeTOMIDine in 0.9 % NaCL 400 MCG/100 ML PLAST..BAG 27.5 MCG IV (06:38)
--- NOTE | 2025-09-06 07:26 | DI.CT.S_ITS ---
PROCEDURE: CT HEAD/BRAIN WO CON INDICATIONS: AMS TECHNIQUE: Noncontrast 4.5 mm thick angled axial sections acquired from the foramen magnum to the vertex, with coronal and sagittal reformats. For radiation dose reduction, the following was used: automated exposure control, adjustment of mA and/or kV according to patient size. COMPARISON: [facility], CT, CT HEAD WITHOUT CONTRAST, 09/11/2023, 0:24. FINDINGS: Image quality: Diagnostic. Patient motion is noted. CSF spaces: Basal cisterns are patent. No extra-axial fluid collections. Ventricles are normal in size and shape. Brain: No midline shift. No intracranial mass effect or hemorrhage. Palacios- white matter interface is normal. Skull and face: Calvarium and visualized facial bones are intact, without suspicious lesions. Sinuses: Visualized sinuses and mastoids are clear. IMPRESSION: No acute intracranial pathology. Dictated by: Prasanth Win M.D. on 09/06/2025 at 8:39 Approved by: Prasanth Win M.D. on 09/06/2025 at 8:40
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
[2025-09-06] MEDS: dexmedeTOMIDine in 0.9 % NaCL 400 MCG/100 ML PLAST..BAG 32.5 MCG IV (08:46)
[2025-09-06] MEDS: HALOPERIDOL 5 MG/ML VIAL IV ×2 (09:38→10:42)
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
--- NOTE | 2025-09-06 10:19 | PT-IP ANOTE ---
Physical Therapy order received. Patient discussed at rounds. Holding Evaluation today due to pt confusion and unable to follow instructions.
[2025-09-06] MEDS: dexmedeTOMIDine in 0.9 % NaCL 400 MCG/100 ML PLAST..BAG 45 MCG IV (11:00)
--- NOTE | 2025-09-06 11:06 | DIET.PN1 ---
Dietary Progress Note Assessment: f/u LOS Decline in PO intakes with agitation. Spoke to RN. Pt is 1:1 assist with eating, but difficulty with eating r/t severe agitation, delirious, and sedation. RN on floor with pt yesterday confirms pt able to consume some meals yesterday. Last 5 days PO intakes <75% but prior to that recorded PO intakes 100%. Will continue to monitor and provide Ensure+ as appropriate. Ht: 185.42 cm Wt: 94.5 kg BMI: 29.0 Last BM: 09/02/25 (09/02/25 01:00) MNA: 14 Bereket Score: 16 Diet: 08/28/25 Breakfast General (Regular) Diet Diet Modifications: Food Texture: Level 7 - Regular Liquid Consistency: Level 0 - Thin Nutrition Percent Meal Consumed 25% 09/05/25 17:30 Percent Meal Consumed 25% 09/05/25 10:00 Percent Meal Consumed 50% 09/04/25 18:00 Percent Meal Consumed 50% 09/04/25 14:00 Labs: RBC 4.55 X10^6/uL (4.5-5.9) 09/03/25 09:30 Hgb 15.1 g/dL (13.5-17.5) 09/03/25 09:30 Hct 43.3 % (41-53) 09/03/25 09:30 Creatinine 0.74 mg/dL (0.66-1.25) 09/03/25 09:30 Electronically Signed by: Selam Shelton 09/06/25 11:06 Clinical Dietitian [address] [id number]
--- NOTE | 2025-09-06 12:38 | CM.DPC ---
Addendum entered by Zeny Alonso RN 09/06/25 12:54: MAIA 24. Addendum entered by Zeny Alonso RN 09/06/25 12:42: Dr. Hart to evaluate patient today. Original Note: Patient remains as a ONE-TO-ONE. Maxed on Precedex and PRN's for agitation. Bilateral wrist restraints. Not eating well. Not ready for discharge. CM to follow up in AM.
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
[2025-09-07] VITALS (77 sets, daily range): BP systolic 98–161; BP diastolic 67–102; PULSE 59–78; RESP 15–24; TEMP 36.3–37.1; O2SAT 88–98
[2025-09-07] MEDS: HALOPERIDOL 5 MG/ML VIAL IV ×2 (01:53→06:26)
[2025-09-07] MEDS: SODIUM CHLORIDE 0.9% 1,000 ML 75 ML IV ×2 (04:21→16:42)
--- NOTE | 2025-09-07 12:05 | PM.PN.1 ---
Subjective <Cristal Anderson - Last Filed: 09/07/25 12:13> Subjective Date Patient Seen: 09/07/25 Interval history: CC: Acute severe alcohol withdrawal HPI:? Per Dr. Russell: Patient is a 40-year-old male history of alcohol misuse disorder well known to this facility presenting wanting detox. He has been admitted twice for alcohol withdrawal and has previously left against medical advice both times. Long discussion with him he is adamant that he wants sober he wants to go to detox and he wants help. He has previously been sober for 3 weeks prior to his most recent bingeing episode. He has no other complaints. Reports that he drank just prior to arrival ? Interval Events: 08/27 (Dr. Amaro): New is 40-year-old male severe alcohol and benzodiazepine abuse seen at multiple institutions (Lives in [place]) began visiting the emergency department at [facility] August 24 wanting to be treated and then signing out Against Medical Advice multiple times. Patient returned 08/27 asking to be detoxed. ? Previous admission patient started withdrawing became very violent threw a table and threatened staff. Typically this happens between 12 and 24 hours after admission ? Patient returns in his state of intense agitation and with a blood alcohol of 439 and benzodiazepines on his urine tox screen. ? I was consulted to assist in managing this patient. In my extensive experience in management of severe alcohol withdrawal cases in my 30 years of practice, this case stands out as one of the most severe alcohol withdrawal. Furthermore, his withdrawal starting while very high levels of alcohol are detectable in the serum. ? I discussed with pharmacy and initiated the protocol he has had [facility] of phenobarbital 10 milligrams/kilogram administered over 30 minutes. Adequate IV access initiating of Precedex drip. ? I have a very strong suspicion that will not be able to administer adequate sedation to treat this patient's withdrawal and maintain the airway of this patient at the required level of sedation required without intubation. ? Orders for admission we will follow initiating of sedation with emergency department available for rapid intubation if needed. ? 08/28 (Dr. Reed): The patient continues to experience wheezing from his asthma and tremors/restlessness from his alcohol withdrawal. His only complaint is that the Kerlix wrap on his right arm IV site is painful. He mumbles. When I asked him what he drinks he answers quite simply ?liquor?. There is also a possibility of lorazepam withdrawal. His alcohol level on admission was 380 at 3:00 p.m. yesterday. The CBC is normal and the CMP is normal with a glucose of 146. The liver enzymes are normal. He received routine doses of phenobarbital overnight and 2 doses of lorazepam. ? 08/29 (Dr. Reed): The patient's withdrawal has been quite smooth, mostly because of the significant doses of benzodiazepine, phenobarbital and Precedex that from prior experience we knew he would need. Today we will begin backing off on the Precedex and phenobarbital dosing, which could always be resumed at the higher doses if needed. Yesterday he was visited by the [facility] designated responder who discussed that once he is medically stable they would be able to probably detain him to treatment under current state law. The CBC is normal with an MCV of only 93. ? 08/30 (Dr. Amaro): Continuing to maintain a RASS score of -2 while deescalating Precedex and tapering phenobarbital patient did require 4 mg of intravenous lorazepam today for agitation. ? 08/31 (Dr. Amaro): Patient is awake and eating hash browns and eggs. Now tolerating oral intake, in good spirits, with slurred speech but no acute distress. Continues to require weaning from sedation and close monitoring for rebound agitation. Mild nausea today and wheezing on exam. No acute electrolyte or metabolic derangements. Abnormal labs today (low RBC, low lymphocytes, elevated eosinophils) likely related to dilution, stress response, and underlying asthma, respectively. CBC otherwise normal. Father is present at bedside. On second visit, patient is stating that he wants to leave against medical advice. ? 09/01 (Dr. Best): The patient continues to require high-dose phenobarbital and Precedex with the goal of treating alcohol withdrawal and associated symptoms of anxiety and wishing to leave the hospital. However, he elected not to leave the hospital and responded well to Precedex infusion. His father clearly states that when he is not in withdrawal that he is very cooperative and wishes to pursue alcohol treatment measures. ? 09/02 (Dr. Best): The patient remained, overnight, though awoke, removed IVs, and attempted to strike a nurse per overnight report. He is calm this morning, accepting replacement of IV catheter and resumption of Precedex. ? 09/03 (Dr. Best): The patient continues to have confusion, and removed IVs again yesterday. He is calm this morning, though difficult to understand with garbled speech. Chest x-ray today shows no evidence of aspiration. Team rounds conducted with nursing, case management and his father is updated on his condition. ? 09/04 (Dr. Sheridan): On first visit, patient sleeping comfortably. Per nursing, last night was uneventful. ? 09/05 (Dr. Sheridan): Patient is upright in bed with slurred speech and confusion. He describes his mood as frustrated and says this is because of his father. Father has not been in the room today. He denies pain. ? 09/06 (Dr. Sheridan): He continues to be confused and intermittently agitated.? He was taken down for CT head this morning and required a 1 time dose of phenobarbital and for of Ativan.? He can, however, follow commands intermittently.? His speech is also intermittently intelligible.? He remains delirious. ? 09/07 (Dr. Sheridan): Sleeping comfortably. Per RN, since initiating diazepam, his coherence is improved, his blood pressure is improved, and he seems less agitated when awake. ? Labs reviewed and notable for: No new labs.? ? Imaging reviewed and notable for: CT Head/Brain Impression: No acute intracranial pathology. ? Intake/Output: In 2880, Out 600, Urine 0.27ml/kg/hr, Stool x0, Emesis x0. Balance +2230 ? Vitals reviewed and notable for: BP: 123-161/82-101, 11x elevated O2%: 88-95, 8x low Other vitals WNL ? Physical Exam: General: Sleeping comfortably.? HEENT: Unremarkable Heart: RRR, no murmur or gallop Lungs: CTAB, no wheezes, rales, or rhonchi. Normal work of breathing Abdomen: Normal bowel sounds. Extremities: No edema, peripheral pulses intact. ? A/P: 40-year-old male with severe alcohol and benzodiazepine withdrawal, currently improving on protocolized ICU management with ongoing adjunct sedative wean and added high dose diazepam for symptom relief. ? #Severe combined alcohol and benzodiazepine withdrawal: -Severe agitation and violent behavior changes in his case typically begin after 12 hours of hospitalization when alcohol levels have de-escalated -He continues to have ongoing agitation and intermittent combative behavior, attempting to strike nursing staff 09/01, which is not typical for him according to his father, who states that when he has not going through withdrawal he is cooperative and interested in alcoholic rehabilitation programs. Therefore, we will continue to treat alcohol withdrawal with the below measures until he is back to his baseline state. -Continue diazepam 20 mg q1 hour IV, per recommendation of Dr. Julio CASANOVA scoring q1 hour -Scheduled phenobarbital 65 mg q12 hours and monitor. -Continue Precedex IV as needed, wean as tolerated. -Continue PO clonidine 0.1 mg BID, as able -Continue PO quetiapine 75 mg BID, as able -Continue haloperidol 5 mg IV PRN -Consider naltrexone once stabilized ? #Alcohol use disorder, active. ? #Multifactorial encephalopathy, active. ? #Asthma, chronic -Monitor for respiratory symptoms, no bronchodilator initiated at this time ? #DVT prophylaxis: -SCDs only ? Code status: -Full code ? Disposition: -Inpatient ICU likely will require additional 2-3 days or more to detox. [facility] visited on the hospital day 2 and 5, they are prepared to return when he is medically stable and detain him for treatment. Looking at transitioning to oral medications as able for discharge planning. <Rodger Sheridan MD - Last Filed: 09/07/25 14:46> Subjective Interval history: CC: Acute severe alcohol withdrawal HPI:? Per Dr. Russell: Patient is a 40-year-old male history of alcohol misuse disorder well known to this facility presenting wanting detox. He has been admitted twice for alcohol withdrawal and has previously left against medical advice both times. Long discussion with him he is adamant that he wants sober he wants to go to detox and he wants help. He has previously been sober for 3 weeks prior to his most recent bingeing episode. He has no other complaints. Reports that he drank just prior to arrival ? Interval Events: 08/27 (Dr. Amaro): New is 40-year-old male severe alcohol and benzodiazepine abuse seen at multiple institutions (Lives in [place]) began visiting the emergency department at [facility] August 24 wanting to be treated and then signing out Against Medical Advice multiple times. Patient returned 08/27 asking to be detoxed. ? Previous admission patient started withdrawing became very violent threw a table and threatened staff. Typically this happens between 12 and 24 hours after admission ? Patient returns in his state of intense agitation and with a blood alcohol of 439 and benzodiazepines on his urine tox screen. ? I was consulted to assist in managing this patient. In my extensive experience in management of severe alcohol withdrawal cases in my 30 years of practice, this case stands out as one of the most severe alcohol withdrawal. Furthermore, his withdrawal starting while very high levels of alcohol are detectable in the serum. ? I discussed with pharmacy and initiated the protocol he has had [facility] of phenobarbital 10 milligrams/kilogram administered over 30 minutes. Adequate IV access initiating of Precedex drip. ? I have a very strong suspicion that will not be able to administer adequate sedation to treat this patient's withdrawal and maintain the airway of this patient at the required level of sedation required without intubation. ? Orders for admission we will follow initiating of sedation with emergency department available for rapid intubation if needed. ? 08/28 (Dr. Reed): The patient continues to experience wheezing from his asthma and tremors/restlessness from his alcohol withdrawal. His only complaint is that the Kerlix wrap on his right arm IV site is painful. He mumbles. When I asked him what he drinks he answers quite simply ?liquor?. There is also a possibility of lorazepam withdrawal. His alcohol level on admission was 380 at 3:00 p.m. yesterday. The CBC is normal and the CMP is normal with a glucose of 146. The liver enzymes are normal. He received routine doses of phenobarbital overnight and 2 doses of lorazepam. ? 08/29 (Dr. Reed): The patient's withdrawal has been quite smooth, mostly because of the significant doses of benzodiazepine, phenobarbital and Precedex that from prior experience we knew he would need. Today we will begin backing off on the Precedex and phenobarbital dosing, which could always be resumed at the higher doses if needed. Yesterday he was visited by the [facility] designated responder who discussed that once he is medically stable they would be able to probably detain him to treatment under current state law. The CBC is normal with an MCV of only 93. ? 08/30 (Dr. Amaro): Continuing to maintain a RASS score of -2 while deescalating Precedex and tapering phenobarbital patient did require 4 mg of intravenous lorazepam today for agitation. ? 08/31 (Dr. Amaro): Patient is awake and eating hash browns and eggs. Now tolerating oral intake, in good spirits, with slurred speech but no acute distress. Continues to require weaning from sedation and close monitoring for rebound agitation. Mild nausea today and wheezing on exam. No acute electrolyte or metabolic derangements. Abnormal labs today (low RBC, low lymphocytes, elevated eosinophils) likely related to dilution, stress response, and underlying asthma, respectively. CBC otherwise normal. Father is present at bedside. On second visit, patient is stating that he wants to leave against medical advice. ? 09/01 (Dr. Best): The patient continues to require high-dose phenobarbital and Precedex with the goal of treating alcohol withdrawal and associated symptoms of anxiety and wishing to leave the hospital. However, he elected not to leave the hospital and responded well to Precedex infusion. His father clearly states that when he is not in withdrawal that he is very cooperative and wishes to pursue alcohol treatment measures. ? 09/02 (Dr. Best): The patient remained, overnight, though awoke, removed IVs, and attempted to strike a nurse per overnight report. He is calm this morning, accepting replacement of IV catheter and resumption of Precedex. ? 09/03 (Dr. Best): The patient continues to have confusion, and removed IVs again yesterday. He is calm this morning, though difficult to understand with garbled speech. Chest x-ray today shows no evidence of aspiration. Team rounds conducted with nursing, case management and his father is updated on his condition. ? 09/04 (Dr. Sheridan): On first visit, patient sleeping comfortably. Per nursing, last night was uneventful. ? 09/05 (Dr. Sheridan): Patient is upright in bed with slurred speech and confusion. He describes his mood as frustrated and says this is because of his father. Father has not been in the room today. He denies pain. ? 09/06 (Dr. Sheridan): He continues to be confused and intermittently agitated.? He was taken down for CT head this morning and required a 1 time dose of phenobarbital and for of Ativan.? He can, however, follow commands intermittently.? His speech is also intermittently intelligible.? He remains delirious. Dr. Hart consulted: plan to aggressively load IV valium and then decrease Precedex and phenobarbital. ? 09/07 (Dr. Sheridan): Sleeping comfortably. Per RN, since initiating diazepam, his coherence is improved, his blood pressure is improved, and he seems less agitated when awake.Had a difficult night with behaviors. Increased Valium to 20 Q 1H. ? Labs reviewed and notable for: No new labs.? ? Imaging reviewed and notable for: CT Head/Brain Impression: No acute intracranial pathology. ? Intake/Output: In 2880, Out 600, Urine 0.27ml/kg/hr, Stool x0, Emesis x0. Balance +2230 ? Vitals reviewed and notable for: BP: 123-161/82-101, 11x elevated O2%: 88-95, 8x low Other vitals WNL ? Physical Exam: General: Sleeping comfortably.? HEENT: Unremarkable Heart: RRR, no murmur or gallop Lungs: CTAB, no wheezes, rales, or rhonchi. Normal work of breathing Abdomen: Normal bowel sounds. Extremities: No edema, peripheral pulses intact. ? A/P: 40-year-old male with severe alcohol and benzodiazepine withdrawal, currently improving on protocolized ICU management with ongoing adjunct sedative wean and added high dose diazepam for symptom relief. ? #Severe combined alcohol and benzodiazepine withdrawal: -Severe agitation and violent behavior changes in his case typically begin after 12 hours of hospitalization when alcohol levels have de-escalated -He continues to have ongoing agitation and intermittent combative behavior, attempting to strike nursing staff 09/01, which is not typical for him according to his father, who states that when he has not going through withdrawal he is cooperative and interested in alcoholic rehabilitation programs. Therefore, we will continue to treat alcohol withdrawal with the below measures until he is back to his baseline state. -Continue diazepam 20 mg q1 hour IV, per recommendation of Dr. Julio CASANOVA scoring q1 hour -Scheduled phenobarbital 65 mg q12 hours and monitor. -Continue Precedex IV as needed, wean as tolerated. -Continue PO clonidine 0.1 mg BID, as able -Continue PO quetiapine 75 mg BID, as able -Continue haloperidol 5 mg IV PRN -Consider naltrexone once stabilized ? #Alcohol use disorder, active. ? #Multifactorial encephalopathy, active. ? #Asthma, chronic -Monitor for respiratory symptoms, no bronchodilator initiated at this time ? #DVT prophylaxis: -SCDs only ? Code status: -Full code ? Disposition: -Inpatient ICU likely will require additional 2-3 days or more to detox. [facility] on the hospital day 2 and 5, they are prepared to return when he is medically stable and detain him for treatment. Looking at transitioning to oral medications as able for discharge planning. Agree with note contents (AJ) Exam <Cristal Anderson - Last Filed: 09/07/25 12:13> Vital Signs (past 8 hours): - 09/07/25 04:15 09/07/25 04:30 09/07/25 04:45 Temperature Pulse Rate 64 65 64 Respiratory Rate Blood Pressure Pulse Oximetry 90 L 90 L 90 L Oxygen Delivery Method Oxygen Flow Rate 09/07/25 05:00 09/07/25 05:00 09/07/25 05:00 Temperature 98.7 F Pulse Rate 65 65 Respiratory Rate 24 Blood Pressure 124/82 124/82 Pulse Oximetry 95 92 Oxygen Delivery Method Oxygen Flow Rate 0 09/07/25 05:15 09/07/25 05:30 09/07/25 05:45 Temperature Pulse Rate 66 69 70 Respiratory Rate Blood Pressure Pulse Oximetry 96 94 95 Oxygen Delivery Method Oxygen Flow Rate 09/07/25 06:00 09/07/25 06:00 09/07/25 06:00 Temperature 98.5 F Pulse Rate 72 72 Respiratory Rate 20 Blood Pressure 157/101 H 157/101 H Pulse Oximetry 95 94 Oxygen Delivery Method Oxygen Flow Rate 0 09/07/25 06:15 09/07/25 06:30 09/07/25 07:00 Temperature Pulse Rate 69 72 Respiratory Rate Blood Pressure 161/99 H Pulse Oximetry 95 95 Oxygen Delivery Method Oxygen Flow Rate 09/07/25 08:00 09/07/25 08:00 09/07/25 08:15 Temperature Pulse Rate 61 Respiratory Rate Blood Pressure 160/102 H Pulse Oximetry 94 Oxygen Delivery Method Room Air Oxygen Flow Rate 09/07/25 08:30 09/07/25 08:45 09/07/25 09:00 Temperature Pulse Rate 59 L 61 Respiratory Rate Blood Pressure 138/90 Pulse Oximetry 93 93 Oxygen Delivery Method Oxygen Flow Rate 09/07/25 09:00 09/07/25 09:15 09/07/25 09:30 Temperature Pulse Rate 60 60 62 Respiratory Rate Blood Pressure Pulse Oximetry 93 93 93 Oxygen Delivery Method Oxygen Flow Rate 09/07/25 09:45 09/07/25 10:00 09/07/25 10:00 Temperature Pulse Rate 62 60 Respiratory Rate Blood Pressure 138/91 H Pulse Oximetry 93 92 Oxygen Delivery Method Oxygen Flow Rate 09/07/25 10:15 09/07/25 10:30 09/07/25 10:45 Temperature Pulse Rate 64 63 63 Respiratory Rate Blood Pressure Pulse Oximetry 93 93 94 Oxygen Delivery Method Oxygen Flow Rate 09/07/25 11:00 09/07/25 11:00 09/07/25 11:13 Temperature 98.4 F Pulse Rate 66 Respiratory Rate 15 Blood Pressure 132/91 H Pulse Oximetry 97 Oxygen Delivery Method Oxygen Flow Rate Oxygen Delivery Method Room Air Oxygen Flow Rate 0 Objective <Cristal Anderson - Last Filed: 09/07/25 12:13> Labs 09/03/25 09:30 09/03/25 09:30 PFSH <Cristal Anderson - Last Filed: 09/07/25 12:13> Medical History Asthma Alcohol abuse Social History household members: family alcohol intake: current Assessment & Plan <Cristal Anderson - Last Filed: 09/07/25 12:13> Time-Based Coding :: [TOTAL MINUTES] spent with patient and on the chart (including review of chart, obtaining history, exam, reviewing outside data, placing orders, documenting exam and treatment plan, and counseling patient) on [DATE].
--- NOTE | 2025-09-07 15:00 | CM.DPC ---
DCP Cont. This IRON AND STEEL WORK SUPERVISOR called the DCR who had come and evaluated patient on 08/31/25 here in the ICU, and who deemed pt involuntary under [place], and placed a hold on him (Domenica, phone: [phone], fax: [phone]). The original plan was to call her back once he had medically stabilized and was able to perform his ADL's independently. As the inpt team, we have determined that pt is making very little progress medically, and is still delusional/hallucinating/combative, is incontinent, and not decisional at this time. Per our hospital Psychiatrist, Dr. Hart, the new plan is to increase the benzodiazapines (Valium) to high dose, hourly levels, and eventually taper down as pt's CIWA clears and he is no longer in need of intermittent soft hand restraints. This has become clear to the inpt team that it will take several weeks to accomplish this. This IR[employer] AND STEEL WORK SUPERVISOR explained the situation to Domenica, who replied that it will be very difficult to place him now with the mental health component (Dr. Hart diagnosed him as bipolar), as well as the medical and TOBY factors. This IR[employer] AND STEEL WORK SUPERVISOR requested that she discuss this situation with her candle making supervisor, and that we need to determine which hospital in the [place] area could accomodate this medically complex case. Alternatively, this IR[employer] AND STEEL WORK SUPERVISOR asked about the options of either [place] or [facility]. She was not aware of the process. This IRON AND STEEL WORK SUPERVISOR called [facility], who stated that pt would need a court order, which would define the number of days that the court has placed the involuntary hold on him, and then their medical team would need to review the clinicals. Called Domenica back, and left a detailed message requesting that we obtain a court order, and that we need assistance from the DCR re: options locally, as well as next steps for [facility] transfer with a court order. In addition, this IR[employer] AND STEEL WORK SUPERVISOR stated on the message that we wish for this to be expedited, as we have maxed out the inpt capabilities that we have in our [facility] to manage this pt due to the high level of resources and medications that it is requiring for his care, and his/staff safety. IRON AND STEEL WORK SUPERVISOR also offered to set-up a care conference with the DCR and hospital medical staff to determine how to best manage this patient's care needs.
[2025-09-08] VITALS (43 sets, daily range): BP systolic 109–174; BP diastolic 70–102; PULSE 65–95; RESP 11–24; TEMP 36.6–37.6; O2SAT 77–97
[2025-09-08] MEDS: HALOPERIDOL 5 MG/ML VIAL IV ×2 (04:47→22:39)
[2025-09-08] MEDS: SODIUM CHLORIDE 0.9% 1,000 ML 75 ML IV ×2 (05:54→18:23)
--- NOTE | 2025-09-08 07:48 | PC.NURSE ---
Addendum entered by Yuli Mac RN 09/08/25 14:50: Pt awake and agitated during bed bath but able to follow commands and assist in turning from side to side to change bed linens. After bed bath, pt resting with eyes closed. Upon neuro check, pt unresponsive, provider notified. Provider at bedside. New orders received. Pt awakening to constant stimulation, opening eyes. Mouth suctioned, HOB >30 degrees. Sedation paused per provider. 1:1 observation. Care ongoing. Original Note: Day shift: Upon entering room, pt stating, You all killed my family. Pt reoriented to situation. Pt reaching for staff, staff continued to redirect and reorient pt to situation. Provider Dr. Sheridan notified, orders clarified. 1:1 observation. Care ongoing.
[2025-09-08] MEDS: CARBOXYMETHYLCELLULOSE DROPS 1 DROPS EYE-BOTH ×2 (07:56→12:42)
--- NOTE | 2025-09-08 08:04 | P.PN_ITS ---
Subjective Subjective Interval history: Summary: This is a 40-year-old male with severe alcohol use disorder and benzodiazepine abuse who was readmitted for early alcohol withdrawal and further management. He was had close to 39 encounters in the emergency department. He lives in [place], with his father. He continues to come to this hospital for care. Hospital course: 08/28: The patient continues to experience wheezing from his asthma and tremors/restlessness from his alcohol withdrawal. His only complaint is that the Kerlix wrap on his right arm IV site is painful. He mumbles. When I asked him what he drinks he answers quite simply ?liquor?. There is also a possibility of lorazepam withdrawal. His alcohol level on admission was 380 at 3:00 p.m. yesterday. The CBC is normal and the CMP is normal with a glucose of 146. The liver enzymes are normal. He received routine doses of phenobarbital overnight and 2 doses of lorazepam. 08/29: The patient's withdrawal has been quite smooth, mostly because of the significant doses of benzodiazepine, phenobarbital and Precedex that from prior experience we knew he would need. Today we will begin backing off on the Precedex and phenobarbital dosing, which could always be resumed at the higher doses if needed. Yesterday he was visited by the critical access hospital designated responder who discussed that once he is medically stable they would be able to probably detain him to treatment under current state law. The CBC is normal with an MCV of only 93. 08/30: Continuing to maintain a ISS score of -2 while deescalating Precedex and tapering phenobarbital patient did require 4 mg of intravenous lorazepam today for agitation 08/31: Patient eating breakfast this morning comfortable patient is medically stable Patient is stating that he wants to leave against medical advice 09/01: The patient continues to require high-dose phenobarbital and Precedex with the goal of treating alcohol withdrawal and associated symptoms of anxiety and wishing to leave the hospital. However, he elected not to leave the hospital and responded well to Precedex infusion. His father clearly states that when he is not in withdrawal that he is very cooperative and wishes to pursue alcohol treatment measures. 09/02: The patient remained, overnight, though awoke, removed IVs, and attempted to strike a nurse per overnight report. He is calm this morning, accepting replacement of IV catheter and resumption of Precedex. 09/03: The patient continues to have confusion, and removed IVs again yesterday. He is calm this morning, though difficult to understand with garbled speech. Chest x-ray today shows no evidence of aspiration. Team rounds conducted with nursing, case management and his father is updated on his condition. 09/04: Intermittent agitation and ongoing encephalopathy. Waxing and waning mental status noted. Began taper of phenobarbital and Precedex. 09/05: Continued agitation and encephalopathy. Continues to require up titration in of Precedex after bringing it down. 09/06: Psychiatry consulted, they recommended an aggressive load of IV Valium with up to 10-20 mg Q 1 hour with Q 1 hours CIWA scoring. The plan would be to load him and then began a slow wean of benzodiazepines. Further, the hope is to be able to discontinue Precedex and phenobarbital once he was adequately loaded. Loading began with 10 mg Q [address] brain obtained, normal. 09/07: Ongoing agitation and waxing and waning mental status. Discussed with Psychiatry, escalated dosing to 20 mg Q 1 hour. Still requiring Precedex and some phenobarbital. 09/08: A little less agitated but still erratic. On and 20 mg Q 1 hour. Still on Precedex. Discussed, plan is to see if we can engage [facility] for potential transfer for medical management of this very complex case. O: NAD, wakes easily, intermittent agitation and nonsensical statements. Soft speech. Lungs are clear, normal rate and effort. Heart is regular, no murmur gallop or rub. Abdomen is soft, non distended. Extremities are free of edema. IMAGING: CT Head/Brain 09/06 Impression: No acute intracranial pathology. A/P: #Severe combined alcohol and benzodiazepine withdrawal: -Severe agitation and violent behavior changes in his case typically begin after 12 hours of hospitalization when alcohol levels have de-escalated -He continues to have ongoing agitation and intermittent combative behavior, attempting to strike nursing staff 09/01, which is not typical for him according to his father, who states that when he has not going through withdrawal he is cooperative and interested in alcoholic rehabilitation programs. Therefore, we will continue to treat alcohol withdrawal with the below measures until he is back to his baseline state. -Continue diazepam 20 mg q1 hour IV, per recommendation of Dr. Kim -MAIA scoring q1 hour -Scheduled phenobarbital 65 mg q12 hours and monitor. -Continue Precedex IV as needed, wean as tolerated. -Continue PO clonidine 0.1 mg BID, as able -Continue PO quetiapine 75 mg BID, as able -Continue haloperidol 5 mg IV PRN -Consider naltrexone once stabilized ? #Alcohol use disorder, active. ? #Multifactorial encephalopathy, active. ? #Asthma, chronic -Monitor for respiratory symptoms, no bronchodilator initiated at this time PLAN: -continue Valium load at 20 IV Q 1 hour. When the patient moves out in terms of behavior we will begin to decrease dosing. An are tracking Q 1 hours CIWA skills as well. We will attempt to wean Precedex as able and eliminate phenobarbital. -given complexity of care, we will seek possible transfer to tertiary care center in [place] such as [facility] for complex management of severe alcohol and diazepam dependence and withdrawal. ? #DVT prophylaxis: -SCDs only ? Code status: -Full code ? Disposition: Exam Vital Signs (past 8 hours): - 09/08/25 00:30 09/08/25 01:00 09/08/25 01:00 Temperature 98.2 F Pulse Rate 80 73 Respiratory Rate 24 Blood Pressure 109/76 109/76 Pulse Oximetry 93 92 Oxygen Delivery Method Oxygen Flow Rate 0 09/08/25 01:00 09/08/25 02:00 09/08/25 02:01 Temperature 98 F Pulse Rate 73 75 Respiratory Rate 22 Blood Pressure 149/96 H 149/98 H Pulse Oximetry 92 93 Oxygen Delivery Method Oxygen Flow Rate 0 09/08/25 03:00 09/08/25 03:00 09/08/25 03:00 Temperature 98.2 F Pulse Rate 76 77 Respiratory Rate 16 Blood Pressure 145/96 H 145/96 H Pulse Oximetry 92 93 Oxygen Delivery Method Oxygen Flow Rate 0 09/08/25 03:30 09/08/25 04:00 09/08/25 04:00 Temperature 98 F Pulse Rate 74 73 Respiratory Rate 24 Blood Pressure 130/86 Pulse Oximetry 90 L 93 Oxygen Delivery Method Room Air Oxygen Flow Rate 0 09/08/25 04:00 09/08/25 04:00 09/08/25 04:30 Temperature Pulse Rate 70 77 Respiratory Rate Blood Pressure 130/86 Pulse Oximetry 89 L 90 L Oxygen Delivery Method Oxygen Flow Rate 09/08/25 05:00 09/08/25 05:00 09/08/25 05:00 Temperature 98.7 F Pulse Rate 71 75 Respiratory Rate 24 Blood Pressure 146/95 H 146/95 H Pulse Oximetry 91 91 Oxygen Delivery Method Oxygen Flow Rate 0 09/08/25 05:30 09/08/25 06:00 09/08/25 06:00 Temperature 98.1 F Pulse Rate 74 68 Respiratory Rate 21 Blood Pressure 143/93 H 143/93 H Pulse Oximetry 90 L 92 Oxygen Delivery Method Oxygen Flow Rate 0 09/08/25 08:00 Temperature 99.7 F H Pulse Rate 73 Respiratory Rate 18 Blood Pressure Pulse Oximetry 93 Oxygen Delivery Method Oxygen Flow Rate 0 Oxygen Delivery Method Room Air Oxygen Flow Rate 0 Objective Labs 09/03/25 09:30 09/03/25 09:30 COUNT INCLUDES THE [facility] Medical History Asthma Alcohol abuse Social History household members: family alcohol intake: current Assessment & Plan Time-Based Coding :: [TOTAL MINUTES] spent with patient and on the chart (including review of chart, obtaining history, exam, reviewing outside data, placing orders, documenting exam and treatment plan, and counseling patient) on [DATE].
--- NOTE | 2025-09-08 11:03 | CM.DPC ---
DCP Cont. Reviewed EMR and team rounds for pt's medical status and updates. Left 2-messages for MARIBEL Metzger, re: wanting to move forward with our hospital and DCR to initiate a court order for a longer hold in order to send pt's referral to [facility]. Faxed pt's urgent referral and clinicals to [facility] for review. Will plan to call DCR's Bariatric Surgeon if we do not hear back from her by later today.
[2025-09-08] MEDS: dexmedeTOMIDine in 0.9 % NaCL 400 MCG/100 ML PLAST..BAG IV (15:28)
[2025-09-08] MEDS: ONDANSETRON 4 MG ODT SL (15:28)
[2025-09-08 17:40] LABS: Add Manual Diff / Slide Review NO; Hematocrit 44.5 % (41-53); Hemoglobin 15.3 g/dL (13.5-17.5); Lymphocytes Absolute Auto 1500 /uL (1100-4500); Mean Corpuscular HGB Conc 34.4 % (30-36); Mean Corpuscular Hemoglobin 33.3 PG (26-34); Mean Corpuscular Volume 96.8 fL (80-100); Platelet Count 188 X10^3/uL (150-400)
[2025-09-08] MEDS: HEPARIN 5,000 UNIT/ML VIAL 5000 UNIT SUBCUT (17:53)
[2025-09-08] MEDS: dexmedeTOMIDine in 0.9 % NaCL 400 MCG/100 ML PLAST..BAG 23.375 MCG IV ×2 (18:23→22:36)
--- NOTE | 2025-09-08 18:25 | P.PN_ITS ---
Subjective Subjective Interval history: 40-year-old male with history of alcohol dependence and severe alcohol withdrawal with alcohol withdrawal seizures who was currently hospital day 13. He was admitted with again severe alcohol intoxication and withdrawal. He would developed agitated delirium which was prolonged in nature. He required phenobarbital, Precedex infusion, scheduled Librium as well as lorazepam upon initial admission. Initially, his withdrawal symptoms improved and meds were weaned to some extent. However, patient developed increased agitation on September 02 requiring resumption of Precedex. On September 06 psychiatry consult was obtained with recommendations for diazepam 10 mg every 1-2 hours until CIWA score was below 10. After 50 mg of diazepam was administered the plan was to taper off phenobarbital and Precedex. He received several doses with initial good response. Subsequently the dose was increased to 20 mg hourly as needed. He ultimately received 320 mg in the 24 hour period of September 07, 400 mg in the 24 hour period of September 08, on 100 mg between midnight and 7:00 a.m. today. Exam Vital Signs (past 8 hours): - 09/08/25 10:30 09/08/25 10:30 09/08/25 10:36 Temperature 98.4 F Pulse Rate 71 Respiratory Rate 11 L Blood Pressure 141/90 H Pulse Oximetry 92 Oxygen Delivery Method 09/08/25 11:00 09/08/25 11:00 09/08/25 11:30 Temperature Pulse Rate 68 69 Respiratory Rate 16 16 Blood Pressure 135/95 H Pulse Oximetry 93 94 Oxygen Delivery Method 09/08/25 12:00 09/08/25 12:00 09/08/25 12:00 Temperature Pulse Rate 68 Respiratory Rate 15 Blood Pressure 159/102 H Pulse Oximetry Oxygen Delivery Method Room Air 09/08/25 12:30 09/08/25 13:00 09/08/25 13:00 Temperature Pulse Rate 66 67 Respiratory Rate 14 15 Blood Pressure 137/95 H Pulse Oximetry 95 92 Oxygen Delivery Method 09/08/25 13:30 09/08/25 14:00 09/08/25 14:00 Temperature Pulse Rate 66 65 Respiratory Rate 18 17 Blood Pressure 121/84 Pulse Oximetry 93 91 Oxygen Delivery Method 09/08/25 14:30 09/08/25 15:00 09/08/25 15:00 Temperature Pulse Rate 66 77 Respiratory Rate 18 19 Blood Pressure 122/85 Pulse Oximetry 94 96 Oxygen Delivery Method 09/08/25 15:30 09/08/25 16:00 09/08/25 16:00 Temperature Pulse Rate 76 Respiratory Rate Blood Pressure 129/84 Pulse Oximetry 96 Oxygen Delivery Method Room Air 09/08/25 16:00 09/08/25 16:30 09/08/25 17:00 Temperature Pulse Rate 71 71 Respiratory Rate 15 Blood Pressure 129/90 Pulse Oximetry 93 97 Oxygen Delivery Method 09/08/25 17:00 09/08/25 17:30 09/08/25 18:00 Temperature Pulse Rate 71 69 73 Respiratory Rate 15 15 17 Blood Pressure Pulse Oximetry 96 96 94 Oxygen Delivery Method Oxygen Delivery Method Room Air Oxygen Flow Rate 0 Narrative Exam Narrative: GEN: Obtunded adult male, snoring HEENT:NC, Face symmetric CHEST: Respiratory excursions symmetric, CTAB CV: RRR, no M/R/G ABD: Soft, NT/ND, BT present in all 4 quadrants, no organomegaly or masses EXTR: warm, well perfused, no C/C/E SKIN: warm and dry, no rash NEURO: Obtunded Objective Labs 09/09/25 09:08 09/09/25 09:08 Labs: Laboratory Results - last 24 hr 09/08/25 17:20 WBC 7.9 RBC 4.60 Hgb 15.3 Hct 44.5 MCV 96.8 MCH 33.3 MCHC 34.4 RDW 15.1 H Plt Count 188 Neut % (Auto) 56.8 Lymph % (Auto) 19.2 L [place] % (Auto) 9.7 Eos % (Auto) 12.1 H Baso % (Auto) 2.2 H Neut # (Auto) 4500 Lymph # (Auto) 1500 [place] # (Auto) 800 Eos # (Auto) 1000 H Baso # (Auto) 200 H REPLACED BY [facility] Medical History Asthma Alcohol abuse Social History household members: family alcohol intake: current Assessment & Plan Assessment & Plan narrative: 1) Agitated delirium At this point, I doubt he has any residual alcohol withdrawal. He may have ongoing delirium secondary to large doses of diazepam, ongoing use of Precedex and overall duration of overall sedation. Plan to obtain a brain MRI to rule out other organic etiologies (CPM, press syndrome, etc.), as well as labs to assess his electrolytes. Will discontinue diazepam, change phenobarbital to as needed, use Haldol preferentially for agitation/delirium, and work on gradually weaning the Precedex. We are unable to make progress with the above, he may need to be transferred to a higher level of care 2) Alcohol/Benzodiazepine w/d Received 320 mg of valium from [place]n to [place]n 09/07, 400 mg on 11, 14, and 100 mg thus far today. Receiving scheduled seroquel, phenobarb, precedex, clonidine (prn). Will DC the Seroquel, start Haldol as noted. 3) Alcohol dependence He has severe alcohol dependence and will need inpatient treatment when his medical issues resolve 4) Asthma Is stable and well controlled at this time 5) Hx of suppressed TSH Will attempt to obtain a PICC line for his multiple infusions and in order to obtain routine lab work as his lab draws have been challenging and IVs have been difficult to maintain. Once a PICC line has been established, will obtain a TSH 6. Malnutrition, severe He has had very little nutrition over the last [address] on high-dose thiamine. I have asked pharmacy to provide IV folate and multivitamin in his IV fluids. If we can not get his delirium under control and get him advancing his oral nutrition, will start TPN 7) Frequent history of leaving the hospital against medical advice He was felt to be an appropriate hold under [place] law. Code status Full Prophylaxis Low Tim score; SCDs Disposition ICU Time-Based Coding :: [TOTAL MINUTES] spent with patient and on the chart (including review of chart, obtaining history, exam, reviewing outside data, placing orders, documenting exam and treatment plan, and counseling patient) on [DATE].
[2025-09-09] VITALS (72 sets, daily range): BP systolic 108–175; BP diastolic 65–109; PULSE 65–144; RESP 11–33; TEMP 36.3–37.1; O2SAT 88–100
--- NOTE | 2025-09-09 | DI.MRI.S_ITS ---
PROCEDURE: MR HEAD/BRAIN WO CON INDICATIONS: Prolonged delirium TECHNIQUE: Noncontrast axial T1 spin echo, axial T2 fast spin echo, sagittal and axial FLAIR, coronal T2 fast spin echo, axial gradient echo, axial diffusion and ADC through the brain. COMPARISON: None. FINDINGS: Image quality: Patient motion degrades examination. CSF Spaces: Basal cisterns are patent. No extra-axial fluid collections. Ventricles are normal in size and shape. Brain: No intracranial masses or hemorrhage. [place]/white matter interface is normal. Brainstem appears normal. Diffusion-weighted images demonstrate no acute infarct. No chronic ischemic insults. Normal intravascular flow voids are present. Skull and face: Calvarium has normal marrow signal. Orbits appear normal. Sinuses: Sinuses and mastoids are clear. IMPRESSION: Negative examination. Dictated by: Andrei Layne M.D. on 09/09/2025 at 10:05 Approved by: Andrei Layne M.D. on 09/09/2025 at 10:07
[2025-09-09] MEDS: dexmedeTOMIDine in 0.9 % NaCL 400 MCG/100 ML PLAST..BAG 23.375 MCG IV ×2 (03:14→07:19)
--- NOTE | 2025-09-09 03:53 | PC.NURSE ---
pt is confused delirious, paranoid and saying people he knows are . His speech is manic and does not stop he tries pull out ivs and takes tele off. He tries to get OOB because he needs to go to family . the CIWA scale is not accurate, pt unable to respond to CIWA questions. pt still awake 0 to +2 rass after 200 mg of valium and 1 mcg/kg/hr precedex continous gtts. he has had 5 mg haldol ivp as well. pt has IV maintance NS at 75. he refuses anything by mouth. pt states, that i am poisoning him. 1:1 sitter at bs.
[2025-09-09] MEDS: HALOPERIDOL 5 MG/ML VIAL IV (06:01)
[2025-09-09] MEDS: SODIUM CHLORIDE 0.9% 1,000 ML 75 ML IV ×2 (07:19→19:46)
[2025-09-09] MEDS: HALOPERIDOL 5 MG/ML VIAL 2 MG IV ×3 (08:40→22:25)
[2025-09-09 09:21] LABS: Add Manual Diff / Slide Review NO; Hematocrit 43.7 % (41-53); Hemoglobin 15.4 g/dL (13.5-17.5); Lymphocytes Absolute Auto 1500 /uL (1100-4500); Mean Corpuscular HGB Conc 35.2 % (30-36); Mean Corpuscular Hemoglobin 32.7 PG (26-34); Mean Corpuscular Volume 92.8 fL (80-100); Platelet Count 232 X10^3/uL (150-400)
[2025-09-09 09:27] LABS: Alanine Aminotransferase 22 IU/L (<50); Albumin 3.9 g/dL (3.5-5.0); Albumin Globulin Ratio 1.3 (1.0-2.8); Alkaline Phosphatase 94 U/L (38-126); Blood Urea Nitrogen 4 mg/dL (9-20); Calcium 8.8 mg/dL (8.4-10.2); Carbon Dioxide 24 mmol/L (22-32); Chloride 107 mmol/L (98-107); Estimated Glomerular Filt Rate > 60 mL/min (>60); Globulin 2.9 g/dL (1.7-4.1); Glucose 95 mg/dL (70-99); HEMOLYSIS 26 (0-50); Magnesium 1.4 mg/dL (1.6-2.3); Phosphorous 3.5 mg/dL (2.5-4.5); Potassium 3.7 mmol/L (3.4-5.1); Sodium 140 mmol/L (137-145); Total Protein 6.8 g/dL (6.3-8.2)
[2025-09-09] MEDS: HEPARIN 5,000 UNIT/ML VIAL 5000 UNIT SUBCUT (10:05)
[2025-09-09] MEDS: MAGNESIUM SULFATE 2 GM/50 ML PIGGYBACK IV (10:06)
[2025-09-09] MEDS: MULTIVITAMIN 10 ML in SODIUM CHLORIDE 0.9% 1,000 ML 126.275 ML IV (11:04)
[2025-09-09] MEDS: THIAMINE 500 MG in SODIUM CHLORIDE 0.9% 100 ML 420 MG IV ×2 (11:05→18:23)
--- NOTE | 2025-09-09 11:26 | PC.NURSE ---
Addendum entered by Yuli Mac RN 09/09/25 17:12: Pt awake and alert to self, situation. Following commands and directions. Pt cooperative with PICC line placement by outside PICC RN. Able to tolerate ice chips and water. Speaking to family on phone. HR 120's-140's, provider Dr. Ku notified. No new orders. Pt tolerating dinner with 1PA assist due to bilateral upper extremity tremors and lack of coordination. 1:1 observation. Care ongoing. Addendum entered by Yuli Mac RN 09/09/25 12:41: Pt assisted with bed bath by this RN and PCT. Pt opened eyes at end of bed bath, able to make eye contact. Voice garbled with pt unable to clear throat. Pt given cues and instruction on clearing throat, assisted with oral suction. Pt cough weak. Alert to self, pt believes he is in [place]. Pt reoriented. HOB 50 degrees, pt given an ice chip to assess swallow. Pt unable to clear oral secretions. Provider at bedside. 1:1 observation. Care ongoing. Original Note: Day shift: Pt awake with eyes open, following simple commands. Per provider order, diazepam held, new orders received. Pt transported to MRI with RN and PCT, pt attempting to kick MRI, pt redirected, reoriented to situation. Medication given as ordered. Vital signs monitoring via MRI compatible equipment, remained WDL during MRI. Pt transported back to room. Pt cooperative with linen and brief change. Pt resting afterward. Pt not responsive to verbal or physical stimuli. Unresponsive to painful stimuli. Provider at bedside. New orders received. Pt maintaining airway. 1:1 observation. Care ongoing.
--- NOTE | 2025-09-09 14:10 | CM.DPC ---
DCP Cont: Per MD, discontinuing pt's valium and sedation meds and plan of brain MRI today and labs appear normal and will attempt to slowly wake pt up to try to get nutrition into him and eventual ambulation. If pt unable to safely remain non-sedated then MD plans to attempt hospital transfer for higher level of care. Per RN, pt starting to wake up more today and trying to talk some but still has some restraints on to maintain his IV access as pt has pulled out his prior lines. SW to follow closely today and tomorrow. Alanna Ingram MSW
--- NOTE | 2025-09-09 14:54 | DI.RAD.S_ITS ---
PROCEDURE: XR CHEST 1V INDICATIONS: picc placement TECHNIQUE: One view of the chest was acquired. COMPARISON: [facility], CR, XR CHEST 1V, 09/03/2025, 8:46. FINDINGS: Surgical changes and devices: Left-sided PICC with tip at the superior cavoatrial junction. No pneumothorax. Embolic opacities over the right neck. Lungs and pleura: Lungs are clear. No pleural effusions or pneumothorax. Mediastinum: Mediastinal contours appear normal. Heart size is normal. Bones and chest wall: No suspicious bony lesions. Overlying soft tissues appear unremarkable. IMPRESSION: Left PICC with tip in the superior cavoatrial junction without pneumothorax. Dictated by: Kishan Lang M.D. on 09/09/2025 at 14:15 Approved by: Kihsan Lang M.D. on 09/09/2025 at 14:16
[2025-09-09] MEDS: MORPHINE 2 MG/ML INJ IV (22:48)
[2025-09-09] MEDS: ZOLPIDEM 5 MG TABLET 10 MG PO (22:51)
[2025-09-10] VITALS (87 sets, daily range): BP systolic 112–184; BP diastolic 68–117; PULSE 87–131; RESP 9–33; TEMP 36.9–37.3; O2SAT 89–96
[2025-09-10] MEDS: ONDANSETRON 4 MG ODT SL ×2 (02:03→18:05)
[2025-09-10] MEDS: THIAMINE 500 MG in SODIUM CHLORIDE 0.9% 100 ML 420 MG IV ×3 (02:06→17:35)
[2025-09-10] MEDS: FAMOTIDINE 20 MG/2 ML VIAL IV ×3 (02:29→20:47)
[2025-09-10] MEDS: SODIUM CHLORIDE 0.9% 1,000 ML 75 ML IV (03:48)
[2025-09-10] MEDS: HALOPERIDOL 5 MG/ML VIAL 2 MG IV (04:19)
[2025-09-10 04:24] LABS: Add Manual Diff / Slide Review NO; Hematocrit 40.4 % (41-53); Hemoglobin 13.8 g/dL (13.5-17.5); Lymphocytes Absolute Auto 900 /uL (1100-4500); Mean Corpuscular HGB Conc 34.3 % (30-36); Mean Corpuscular Hemoglobin 32.2 PG (26-34); Mean Corpuscular Volume 93.9 fL (80-100); Platelet Count 284 X10^3/uL (150-400)
[2025-09-10 04:41] LABS: Magnesium 1.6 mg/dL (1.6-2.3)
--- NOTE | 2025-09-10 04:42 | PC.NURSE ---
pt wanting to call dad, family at 0300. would like his clothes. pt states he wants to somke or go home, pt feeling anxious rambling and flight of ideas. unable to reorient pt to time or place
[2025-09-10 05:03] LABS: Alanine Aminotransferase 18 IU/L (<50); Albumin 3.6 g/dL (3.5-5.0); Albumin Globulin Ratio 1.4 (1.0-2.8); Alkaline Phosphatase 94 U/L (38-126); Blood Urea Nitrogen 7 mg/dL (9-20); Calcium 8.6 mg/dL (8.4-10.2); Carbon Dioxide 25 mmol/L (22-32); Chloride 108 mmol/L (98-107); Estimated Glomerular Filt Rate > 60 mL/min (>60); Globulin 2.5 g/dL (1.7-4.1); Glucose 96 mg/dL (70-99); HEMOLYSIS < 15 (0-50); Potassium 3.8 mmol/L (3.4-5.1); Sodium 140 mmol/L (137-145); Total Protein 6.1 g/dL (6.3-8.2)
--- NOTE | 2025-09-10 05:53 | PM.PN.1 ---
Subjective Subjective Interval history: 40-year-old male with history of alcohol dependence and severe alcohol withdrawal with alcohol withdrawal seizures who was currently hospital day 13. He was admitted with again severe alcohol intoxication and withdrawal. He would developed agitated delirium which was prolonged in nature. He required phenobarbital, Precedex infusion, scheduled Librium as well as lorazepam upon initial admission. Initially, his withdrawal symptoms improved and meds were weaned to some extent. However, patient developed increased agitation on September 02 requiring resumption of Precedex. On September 06 psychiatry consult was obtained with recommendations for diazepam 10 mg every 1-2 hours until CIWA score was below 10. After 50 mg of diazepam was administered the plan was to taper off phenobarbital and Precedex. He received several doses with initial good response. Subsequently the dose was increased to 20 mg hourly as needed. He ultimately received 320 mg in the 24 hour period of September 07, 400 mg in the 24 hour period of September 08, on 100 mg between midnight and 7:00 a.m. today. Yesterday, diazepam was discontinued. He was given haloperidol x1 dose. He was weaned off of Precedex. An MRI was done which showed no obvious organic abnormality. A PICC line was placed. Labs were also obtained which showed no significant electrolyte derangements. He gradually became more alert and oriented. Over the course of the day, he remained confused but became able to make phone calls, speak to his dad, brother, and fiancee. He did remain confused and required frequent reorientation. Overnight, he did require multiple doses of Haldol. He did demand things like his clothes and said he wanted to leave against medical advice. However due to his weakened state and confusion, he could be redirected. This morning, he is very pleasant and cooperative. He expresses that he is confused and is having difficulty differentiating between things that have happened versus things he has hallucinated. He is very appreciative of the care he is receiving and seeks reassurance about getting care and the plan while he is hospital. Exam Vital Signs (past 8 hours): - 09/09/25 22:00 09/09/25 22:00 09/09/25 22:00 Temperature Pulse Rate 116 H 113 H Respiratory Rate 12 19 Blood Pressure 126/79 126/79 Pulse Oximetry 93 88 L Oxygen Flow Rate 0 09/09/25 22:15 09/09/25 22:30 09/09/25 22:45 Temperature Pulse Rate 125 H 115 H 122 H Respiratory Rate 24 19 22 Blood Pressure Pulse Oximetry 94 95 95 Oxygen Flow Rate 09/09/25 23:00 09/09/25 23:00 09/09/25 23:00 Temperature Pulse Rate 113 H 112 H Respiratory Rate 20 16 Blood Pressure 119/72 119/72 119/72 Pulse Oximetry 92 91 Oxygen Flow Rate 0 09/09/25 23:00 09/09/25 23:15 09/09/25 23:30 Temperature Pulse Rate 111 H 114 H 110 H Respiratory Rate 22 16 16 Blood Pressure Pulse Oximetry 92 93 90 L Oxygen Flow Rate 09/09/25 23:45 09/10/25 00:00 09/10/25 00:00 Temperature 98.6 F Pulse Rate 112 H 112 H 112 H Respiratory Rate 17 17 17 Blood Pressure 112/68 Pulse Oximetry 90 L 91 90 L Oxygen Flow Rate 0 09/10/25 00:00 09/10/25 00:15 09/10/25 00:30 Temperature Pulse Rate 112 H 111 H Respiratory Rate 15 16 Blood Pressure 112/68 Pulse Oximetry 90 L 90 L Oxygen Flow Rate 09/10/25 00:45 09/10/25 01:00 09/10/25 01:00 Temperature Pulse Rate 114 H 111 H Respiratory Rate 22 16 Blood Pressure 152/92 H Pulse Oximetry 94 94 Oxygen Flow Rate 09/10/25 01:15 09/10/25 01:30 09/10/25 01:45 Temperature Pulse Rate 109 H 117 H 109 H Respiratory Rate 19 21 16 Blood Pressure Pulse Oximetry 96 96 93 Oxygen Flow Rate 09/10/25 02:00 09/10/25 02:00 09/10/25 02:00 Temperature Pulse Rate 109 H 121 H Respiratory Rate 22 28 H Blood Pressure 145/93 H 145/97 H Pulse Oximetry 93 93 Oxygen Flow Rate 09/10/25 02:15 09/10/25 02:30 09/10/25 02:45 Temperature Pulse Rate 112 H 112 H 111 H Respiratory Rate 33 H 21 20 Blood Pressure Pulse Oximetry 95 93 93 Oxygen Flow Rate 09/10/25 03:00 09/10/25 03:00 09/10/25 03:00 Temperature Pulse Rate 107 H 105 H Respiratory Rate 22 20 Blood Pressure 142/92 H 142/91 H Pulse Oximetry 93 94 Oxygen Flow Rate 09/10/25 03:15 09/10/25 03:30 09/10/25 03:45 Temperature Pulse Rate 104 H 104 H 106 H Respiratory Rate 16 16 17 Blood Pressure Pulse Oximetry 89 L 91 92 Oxygen Flow Rate 09/10/25 04:00 09/10/25 04:00 09/10/25 04:15 Temperature Pulse Rate 116 H 107 H Respiratory Rate 19 21 Blood Pressure 138/69 Pulse Oximetry 92 95 Oxygen Flow Rate 09/10/25 04:30 09/10/25 04:45 09/10/25 05:00 Temperature 98.8 F Pulse Rate 106 H 107 H Respiratory Rate 22 Blood Pressure Pulse Oximetry 94 92 Oxygen Flow Rate 09/10/25 05:00 09/10/25 05:15 09/10/25 05:19 Temperature Pulse Rate 103 H 120 H Respiratory Rate 15 17 Blood Pressure 142/86 H Pulse Oximetry 92 93 Oxygen Flow Rate 09/10/25 05:19 Temperature Pulse Rate 106 H Respiratory Rate 11 L Blood Pressure Pulse Oximetry Oxygen Flow Rate Oxygen Delivery Method Room Air Oxygen Flow Rate 0 Narrative Exam Narrative: GEN: Pleasant adult male, alert, oriented to self and somewhat to situation, anxious but in no other acute distress HEENT:NC, Face symmetric CHEST: Respiratory excursions symmetric, CTAB CV: RRR, no M/R/G ABD: Soft, NT/ND, BT present in all 4 quadrants, no organomegaly or masses EXTR: warm, well perfused, no C/C/E SKIN: warm and dry, no rash NEURO: Alert, oriented times 1-2 Objective Labs 09/10/25 04:05 09/10/25 04:05 Labs: Laboratory Results - last 24 hr 09/09/25 09/10/25 09:08 04:05 WBC 8.4 12.8 H D RBC 4.71 4.30 L Hgb 15.4 13.8 Hct 43.7 40.4 L MCV 92.8 D 93.9 MCH 32.7 32.2 MCHC 35.2 34.3 RDW 14.2 14.6 Plt Count 232 284 Neut % (Auto) 62.4 74.0 Lymph % (Auto) 17.4 L 7.2 L [place] % (Auto) 7.6 3.8 Eos % (Auto) 12.4 H 11.7 H Baso % (Auto) 0.2 3.3 H Neut # (Auto) 5300 9500 H Lymph # (Auto) 1500 900 L [place] # (Auto) 600 500 Eos # (Auto) 1000 H 1500 H Baso # (Auto) 0 400 H Sodium 140 140 Potassium 3.7 3.8 Chloride 107 108 H Carbon Dioxide 24 25 BUN 4 L 7 L Creatinine 0.75 0.78 Estimated GFR > 60 > 60 BUN/Creatinine Ratio 5.3 L 9.0 Glucose 95 96 Calcium 8.8 8.6 Phosphorus 3.5 Magnesium 1.4 L 1.6 Total Bilirubin 0.6 0.3 AST 39 28 ALT 22 18 Alkaline Phosphatase 94 94 Total Protein 6.8 6.1 L Albumin 3.9 3.6 Globulin 2.9 2.5 Albumin/Globulin Ratio 1.3 1.4 PFSH Medical History Asthma Alcohol abuse Social History household members: family alcohol intake: current Assessment & Plan Assessment & Plan narrative: 1) Agitated delirium He is demonstrating ongoing improvement off of diazepam and Precedex. He remains off of phenobarbital as well. Plan moving forward is to continue Haldol as needed for agitation, with a goal of using it only sparingly for severe agitation. I did discontinue quetiapine yesterday. There is concern for undiagnosed underlying bipolar disorder. Evidently this was raised last week by Dr. Hart as well. There is reportedly a strong family history of bipolar disorder in the patient's sibling, daughter, and a parent. He has been noted to have psychosis when he has been here as well. Nursing reports that there have been episodes where he appears manic as well. Certainly, it is very difficult to ascertain what specific underlying psychiatric disorder he may have as he is typically here when intoxicated or in a withdrawal state. However, given his emotional lability and volatility, and the concerns reportedly raise last week by Psychiatry about possibility of bipolar disorder, an abundance of caution and concern for his risk of another attempt at leaving against medical advice, I will start valproic acid 250 mg t.i.d.. This would be a good initial agent for bipolar disorder particularly with comorbid alcohol dependence. 2) severe alcohol dependence Withdrawal has resolved. He will benefit from inpatient rehabilitation. 3) asthma Is stable and well controlled at this time 4) Hx of suppressed TSH As noted. He does have a history of a suppressed TSH with normal free T4. Last checked in mid July. Will repeat a TSH in the morning. Reflex free T4 will be done as 6. Malnutrition, severe He has had very little nutrition over the last 2 weeks. Continues high-dose thiamine. He is also receiving a daily IV multivitamin and folic acid. Tomorrow could transition to oral multivitamin and folic acid. He is beginning to eat partial meals today but is only achieving about 25% of his meals. Will plan to saline lock his IV once he is taking adequate fluids as well. 7) Frequent history of leaving the hospital against medical advice He was felt to be an appropriate hold under [place]'s law. Code status Full Prophylaxis Low Tim score; SCDs Disposition ICU Time-Based Coding :: [TOTAL MINUTES] spent with patient and on the chart (including review of chart, obtaining history, exam, reviewing outside data, placing orders, documenting exam and treatment plan, and counseling patient) on [DATE].
[2025-09-10] MEDS: DIVALPROEX DR 250 MG TABLET PO ×3 (08:12→23:52)
[2025-09-10] MEDS: HEPARIN 5,000 UNIT/ML VIAL 5000 UNIT SUBCUT ×2 (08:12→20:47)
[2025-09-10] MEDS: MAGNESIUM CHLORIDE 64 MG TABLET 128 MG PO (08:12)
[2025-09-10] MEDS: NICOTINE 14 PATCH 14 MG TOP (08:13)
--- NOTE | 2025-09-10 12:18 | PT.IIE ---
Current Diagnoses Alcohol dependence with withdrawal, unspecified (08/27/25) Medical History (Last Reviewed 09/06/25 @ 13:16 by Robby Hart MD) Alcohol abuse Asthma Physical Therapy Inpatient Evaluation/Re-Eval M1 PT IP Prior Functional Status Start: 09/10/25 12:11 Freq: NEEDED Status: Active Protocol: Document 09/10/25 12:11 KJ (Rec: 09/10/25 12:18 KJ [id number]) Medical Review Prior Functional Status Medical History Yes Reviewed Social History Household Members family Living Arrangements House M2 PT-IP Current Condition Start: 09/10/25 12:11 Freq: NEEDED Status: Active Protocol: Document 09/10/25 12:11 KJ (Rec: 09/10/25 12:18 KJ [id number]) Physical Therapy Current Condition Current Condition Evaluation Date 09/10/25 Treatment Diagnosis impaired mobility M3 PT-IP Subjective Start: 09/10/25 12:11 Freq: NEEDED Status: Active Protocol: Document 09/10/25 12:11 KJ (Rec: 09/10/25 12:18 KJ [id number]) Subjective Physical Therapy Visit Type Type Initial Evaluation Visit Start Time 11:49 Visit Stop Time 12:09 Physical Therapy Visit Comments Patient Comments looking forward to getting oob Patient Goals to go home Therapy Pain Assessment Pain When Pain Assessed At Rest Pain Present Pain Present Pain Reported Location Left Shoulder Description Aching Pain Behaviors Facial Grimacing,Guarding M4 PT-IP Mobility and Gait Start: 09/10/25 12:11 Freq: NEEDED Status: Active Protocol: Document 09/10/25 12:11 KJ (Rec: 09/10/25 12:18 KJ [id number]) PT-Bed Mobility Assessment Rolling Type of Rolling Roll to Right Supine to Sit Supine to Sit Minimal Assistance Scooting Scooting to Edge of Moderate Assistance Bed PT-Transfer Assessment Sit to and From Stand Sit to and from Moderate Assistance Stand Equipment Transfer Assistive Gait Belt,Front Wheeled Walker Device Transfers Transfer Destination Chair Transfer Technique Stand Step Pivot Transfer Ability Level of Assist 2 Person Assistance Comments Mobility Comments Tremors, balance dysfunction PT-Balance Assessment Sitting Balance and Reactions Static Sitting Good Balance Ability Dynamic Sitting Good Balance Ability Standing Balance and Reactions Static Standing Fair Balance Ability Dynamic Standing Poor Balance Ability M5 PT-IP Objective Assessments Start: 09/10/25 12:11 Freq: NEEDED Status: Active Protocol: Document 09/10/25 12:11 KJ (Rec: 09/10/25 12:18 KJ [id number]) Orientation Orientation/Cognition Orientation Name Language Function Garbled Speech,Word Finding Difficulties Ability Safety Awareness Decreased Safety Awareness Gross Range of Motion Upper Extremity ROM Assessment Within Functional Limits Lower Extremity ROM Assessment Within Functional Limits Strength Upper Extremity Strength Assessment Within Functional Limits Lower Extremity Strength Assessment Within Functional Limits Comments Strength Comments L shoulder pain due to old fx M6 PT-IP Treatment Start: 09/10/25 12:11 Freq: NEEDED Status: Active Protocol: Document 09/10/25 12:11 KJ (Rec: 09/10/25 12:18 KJ [id number]) Physical Therapy Treatment Exercises Exercises Ankle Pumps,Short Arc Quads,Shoulder Flexion Education Education Provided Safety Other Treatments Other Treatment instruction on deep breathing, working on upright Performed position in sitting and standing. Tendency to lean to R with decreased awareness of position M7 PT-IP Assessment and Plan Start: 09/10/25 12:11 Freq: NEEDED Status: Active Protocol: Document 09/10/25 12:11 KJ (Rec: 09/10/25 12:18 KJ [id number]) PT Summary Assessment and Plan Potential Rehabilitation Good Potential Status of Condition Evolving at Evaluation Summary Impairments Balance,Bed Mobility,Transfers,Gait,Activity Tolerance Goals Bed Mobility Goal Independent Transfer Goal Independent Gait Goal Independent Gait Distance 200 Days to Meet Goals 10 Frequency of Treatment Frequency Of Once a Day Treatment Treatment Plan Physical Therapy Bed Mobility Training,Transfer Training,Gait Training, Treatment Plan Therapeutic Exercise Other sitting and standing balance Recommendations and Next Treatment Focus Recommendations To Nursing Amount of Assist 2 Person Assist Needed Discharge Recommendations Other Discharge Pt will benefit from continuing skilled PT to regain Recommendations independence - PT assist +1
--- NOTE | 2025-09-10 13:24 | PC.NURSE ---
Addendum entered by Yuli Mac RN 09/10/25 19:28: Pt tolerated dinner, continued intermittently tearful. AA sponsor at bedside with pt. Pt cooperative but impulsive. 1:1 observation. Bed alarm active. Care ongoing. Original Note: Day shift: Pt awake and alert to self, vague situation, and year. Attempting to get out of bed, redirected for safety, reoriented to situation. Pt stating he wants to go home, that he has plans for his father to pick him up. Pt redirected, spoke with father on phone, agreeable to plan of staying at hospital. Tolerating meals, intermittently tearful/crying, emotional support provided to pt by this RN and PCT at bedside. Pt up in chair with PT, this RN and PCT w/ FWW, non-skid socks and gait belt. Pt assisted in walking around in room, 2PA w/ FWW, gait belt, and non-skid socks. Pt unsteady on feet, leaning back, but able to ambulate with assistance. Pt back to bed, eyes closed, resting. 1:1 observation, bed alarm active. Care ongoing.
--- NOTE | 2025-09-10 13:25 | CM.DPC ---
DCP Cont: Per MD, pt still has active PICC line in place from yesterday and starting to be able to take some PO intake and nutrition. PT orders placed and pt able to ambulate with some assist and unsteady gait but even improved some later with ambulating in the room with nursing staff, still unsteady but improving slowly. Per RN, currently off phenobarb, no haldol needed, and just on the Depakote for likely underlying undx bipolar. Pt still saying he wants to leave but redirectable and not attempting to leave at this time. SW anticipates that if pt maintains his progress through the night, good chance pt will be medically cleared tomorrow for likely need to dispatch DCR again for placement at [facility] Inpt tx PATRICE'd. JUAN FRANCISCO Dejesus
[2025-09-10] MEDS: CALCIUM CARBONATE 500 MG TAB 1000 MG PO (18:17)
[2025-09-10] MEDS: ONDANSETRON 4 MG/2 ML INJ IV (22:09)
[2025-09-11] VITALS (72 sets, daily range): BP systolic 136–190; BP diastolic 87–138; PULSE 0–156; RESP 8–45; TEMP 37.4–37.7; O2SAT 83–100
[2025-09-11] MEDS: ZOLPIDEM 5 MG TABLET 10 MG PO (00:05)
[2025-09-11] MEDS: SODIUM CHLORIDE 0.9% 1,000 ML 75 ML IV ×2 (01:14→17:01)
[2025-09-11] MEDS: THIAMINE 500 MG in SODIUM CHLORIDE 0.9% 100 ML 420 MG IV ×3 (02:56→19:04)
[2025-09-11 04:50] LABS: Add Manual Diff / Slide Review NO; Hematocrit 39.2 % (41-53); Hemoglobin 13.5 g/dL (13.5-17.5); Lymphocytes Absolute Auto 2100 /uL (1100-4500); Mean Corpuscular HGB Conc 34.5 % (30-36); Mean Corpuscular Hemoglobin 32.5 PG (26-34); Mean Corpuscular Volume 94.0 fL (80-100); Platelet Count 262 X10^3/uL (150-400)
[2025-09-11 05:05] LABS: Calcium 8.6 mg/dL (8.4-10.2); Carbon Dioxide 27 mmol/L (22-32); Chloride 105 mmol/L (98-107); Estimated Glomerular Filt Rate > 60 mL/min (>60); Glucose 118 mg/dL (70-99); HEMOLYSIS 21 (0-50); Magnesium 1.6 mg/dL (1.6-2.3); Potassium 3.5 mmol/L (3.4-5.1); Sodium 140 mmol/L (137-145)
[2025-09-11 05:07] LABS: Blood Urea Nitrogen 2 mg/dL (9-20)
[2025-09-11 06:19] LABS: TSH w/ Reflex to FT4 0.41 uIU/mL (0.47-4.68)
[2025-09-11 06:59] LABS: Free T4, Direct Thyroxine 1.13 ng/dL (0.78-2.19)
[2025-09-11] MEDS: ONDANSETRON 4 MG/2 ML INJ IV ×4 (08:56→23:48)
[2025-09-11] MEDS: FAMOTIDINE 20 MG/2 ML VIAL IV (08:57)
[2025-09-11] MEDS: DIVALPROEX DR 250 MG TABLET PO ×3 (08:57→21:25)
[2025-09-11] MEDS: HEPARIN 5,000 UNIT/ML VIAL 5000 UNIT SUBCUT ×2 (08:57→21:25)
[2025-09-11] MEDS: NICOTINE 14 PATCH 14 MG TOP (08:57)
[2025-09-11] MEDS: IBUPROFEN 400 MG TABLET 200 MG PO (09:58)
--- NOTE | 2025-09-11 10:34 | CM.SWNOTE ---
Addendum entered by JUAN FRANCISCO Dejesus 09/11/25 15:40: ADD: MARIBEL Zuluaga arrived at the hospital around 1500 and had made referrals to [facility] and [facility] (the two out of three [facility] facilities in [facility] that had open beds) and both reviewed and [facility] even completed RN to RN and both facilities declined due to patient needing a walker for ambulation and using a bedside urinal rather than independently getting to the bathroom. They do not have staff to provide assist with any ADLs. Pt would need to be able to ambulate independently without DME and get to the bathroom. Pt still remains quite tremulous and unsteady even with FWW. SW and MARIBEL Zuluaga updated MD. Per DCR, if pt expresses that he wants to leave A there is no legal order in place to currently detain him and if staff had concerns would need to call [place] [employer] as he was leaving the hospital. DCR also states that if pt expresses he is Voluntarily willing to go to Inpt TO[facility] tx, would need to try this Least Restrictive Option first even if he might not remain at treatment. The treatment facility could then request DCR dispatch for detainment at that time. Plan: SW to follow for pt to be more stable for independent ambulation and discuss with pt if he is Voluntarily agreeable for Inpt TOBY tx closer to discharge. If pt declines Voluntary, then SW can call [facility] Crisis Line again to request DCR to be dispatched for detainment. JUAN FRANCISCO Dejesus Addendum entered by JUAN FRANCISCO Dejesus 09/11/25 12:32: ADD: Called [facility] Crisis Line and requested DCR to be dispatched and provided information on pt's admission and current status and faxed MD marianna prog note from today, ICE SELLER note, Medical Clearance form to [facility] to review. Awaiting call back from DCR. JUAN FRANCISCO Dejesus Original Note: Per MD, pt has been off sedating medications for a couple days and started on Depakote for very probable Bipolar Dx that has been undiagnosed and strong familial indicators as a few of patient's family members have been diagnosed with bioplar DO. Medical team has been treating patient for ETOH withdrawal and suspected benzo withdrawal due to the significant length of need for withdrawal medications and extended taper. Patient has now been able to communicate, feed himself adequate intake of nutrition, and ambulate with staff over the past 48 hours. ICE SELLER met bedside with pt and he is able to state that he is interested in abstaining from alcohol and wants to be done with drinking but waxes and wanes from being voluntary to asking to leave the hospital to go home. Patient's history of leaving Emergency Room and hospital admissions AMA and his hx of sustained high BRANDI make patient a difficult voluntary tx candidate on [facility]. This JUAN FRANCISCO, and medical team feel that he remains a candidate for Involuntary Placement at [facility] In Tx for his safety and high risk of medical complications if he continues to drink and use benzos. signed [facility] form for medical clearance to request DCR to be dispatched for assessment of PATRICE placement for ongong treatment under [place]'s Law. ICE SELLER to fax Medical Clearance form and clinicals to [facility] now to review for DCR dispatch. JUAN FRANCISCO Dejesus
--- NOTE | 2025-09-11 10:48 | P.PN_ITS ---
Subjective Subjective Date Patient Seen: 09/11/25 Interval history: History of present illness: 40-year-old male with history of alcohol dependence and severe alcohol withdrawal with alcohol withdrawal seizures who was currently hospital day 14. He was admitted with again severe alcohol intoxication and withdrawal. He would developed agitated delirium which was prolonged in nature. He required phenobarbital, Precedex infusion, scheduled Librium as well as lorazepam upon initial admission. Hospital course: Initially, his withdrawal symptoms improved and meds were weaned to some extent. However, patient developed increased agitation on September 02 requiring resumption of Precedex. On September 06 psychiatry consult was obtained with recommendations for diazepam 10 mg every 1-2 hours until CIWA score was below 10. After 50 mg of diazepam was administered the plan was to taper off phenobarbital and Precedex. He received several doses with initial good response. Subsequently the dose was increased to 20 mg hourly as needed. He ultimately received 320 mg in the 24 hour period of September 07, 400 mg in the 24 hour period of September 08, on 100 mg between midnight and 7:00 a.m. today. 08/09: diazepam was discontinued. He was given haloperidol x1 dose. He was weaned off of Precedex. An MRI was done which showed no obvious organic abnormality. A PICC line was placed. Labs were also obtained which showed no significant electrolyte derangements. He gradually became more alert and oriented. Over the course of the day, he remained confused but became able to make phone calls, speak to his dad, brother, and fiancee. He did remain confused and required frequent reorientation. 08/10: Overnight, he did require multiple doses of Haldol. He did demand things like his clothes and said he wanted to leave against medical advice. However due to his weakened state and confusion, he could be redirected. This morning, he is very pleasant and cooperative. He expresses that he is confused and is having difficulty differentiating between things that have happened versus things he has hallucinated. He is very appreciative of the care he is receiving and seeks reassurance about getting care and the plan while he is hospital. 08/11: No events overnight last administration of Haldol was at 4:19 a.m. on 08/10 (greater than 24 hours) calm and conversant this morning discussed the football game last night his team won discussed the potential diagnoses of bipolar disorder which he volunteered that he was suspicious of this as well as he has family members with the same diagnosis. He is tolerating the Depakote 250 mg t.i.d. that was started yesterday morning. Patient is medically cleared to be transferred to a psychiatric facility under DCR. Suspicion of bipolar disorder. By this time the are no signs of alcohol withdrawal. Patient also maybe having a prolonged benzodiazepine detoxification and withdrawal effect which may require slow taper. Review of systems: No vomiting No chest pain No seizure Physical exam: Fine tremor Bradyphrenic and Bradykinetic but alert and conversive HEENT unremarkable No labored respiration Abdomen nondistended Extremities no edema Moves all extremities Assessment and plan: 1) Agitated delirium * He is demonstrating ongoing improvement off of diazepam and Precedex. More than 72 hours * He remains off of phenobarbital as well. * Has not required Haldol and over 24 hours * There is concern for undiagnosed underlying bipolar disorder. Evidently this was raised last week by Dr. Hart as well. There is reportedly a strong family history of bipolar disorder in the patient's sibling, daughter, and a parent. He has been noted to have psychosis when he has been here as well. Nursing reports that there have been episodes where he appears manic as well. Certainly, it is very difficult to ascertain what specific underlying psychiatric disorder he may have as he is typically here when intoxicated or in a withdrawal state. However, given his emotional lability and volatility, and the concerns reportedly raise last week by Psychiatry about possibility of bipolar disorder, an abundance of caution and concern for his risk of another attempt at leaving against medical advice, * On 08/10 patient was started on valproic acid 250 mg t.i.d.. * This would be a good initial agent for bipolar disorder particularly with comorbid alcohol dependence. 2) severe alcohol dependence * Withdrawal has resolved. * He will benefit from inpatient rehabilitation. * Is engaged with a sponsor in AA 3) asthma * Is stable and well controlled at this time 4) Hx of suppressed TSH * As noted. He does have a history of a suppressed TSH with normal free T4. * Last checked in mid July. * TSH near reference range at 0.41 * Reflex free T4 in reference range 6. Malnutrition, severe * He has had very little nutrition over the last 2 weeks. Continues high-dose thiamine. He is also receiving a daily IV multivitamin and folic acid. * transition to oral multivitamin and folic acid. * He is beginning to eat partial meals today but is only achieving about 25% of his meals. * saline lock his IV once he is taking adequate fluids as well. 7) Frequent history of leaving the hospital against medical advice * He was felt to be an appropriate hold under [employer] law. Code status * Full Prophylaxis * Low Tim score; SCDs Disposition * ICU can deescalate care now to acute care * Medically stable and manageable for management in a long-term psychiatric facility * DC are referral in place Time-Based Coding :: 35 minutes spent with patient and on the chart (including review of chart, obtaining history, exam, reviewing outside data, placing orders, documenting exam and treatment plan, and counseling patient) Exam Vital Signs (past 8 hours): - 09/11/25 03:00 09/11/25 03:15 09/11/25 03:30 Temperature Pulse Rate 88 90 102 H Respiratory Rate Blood Pressure Pulse Oximetry 09/11/25 03:49 09/11/25 03:56 09/11/25 03:56 Temperature 99.8 F H Pulse Rate 105 H 98 H Respiratory Rate 19 22 Blood Pressure 160/92 H Pulse Oximetry 96 09/11/25 04:00 09/11/25 04:15 09/11/25 04:30 Temperature Pulse Rate 98 H 97 H 93 H Respiratory Rate 8 L 16 19 Blood Pressure Pulse Oximetry 09/11/25 04:45 09/11/25 05:00 09/11/25 05:15 Temperature Pulse Rate 94 H 94 H 96 H Respiratory Rate 22 20 18 Blood Pressure Pulse Oximetry 09/11/25 05:30 Temperature Pulse Rate 95 H Respiratory Rate 20 Blood Pressure Pulse Oximetry Oxygen Delivery Method Room Air Oxygen Flow Rate 0 Objective Labs 09/11/25 04:25 09/11/25 04:25 Labs: Laboratory Results - last 24 hr 09/11/25 04:25 WBC 12.1 H RBC 4.17 L Hgb 13.5 Hct 39.2 L MCV 94.0 MCH 32.5 MCHC 34.5 RDW 14.4 Plt Count 262 Neut % (Auto) 58.1 Lymph % (Auto) 17.3 L [place] % (Auto) 6.6 Eos % (Auto) 16.7 H Baso % (Auto) 1.3 Neut # (Auto) 7000 Lymph # (Auto) 2100 [place] # (Auto) 800 Eos # (Auto) 2000 H Baso # (Auto) 200 H Sodium 140 Potassium 3.5 Chloride 105 Carbon Dioxide 27 BUN 2 L Creatinine 0.73 Estimated GFR > 60 BUN/Creatinine Ratio 2.7 L Glucose 118 H Calcium 8.6 Magnesium 1.6 TSH 0.41 L Free T4 1.13 PFSH Medical History Asthma Alcohol abuse Social History household members: family alcohol intake: current Assessment & Plan Time-Based Coding :: [TOTAL MINUTES] spent with patient and on the chart (including review of chart, obtaining history, exam, reviewing outside data, placing orders, documenting exam and treatment plan, and counseling patient) on [DATE].
--- NOTE | 2025-09-11 11:05 | DIET.PN1 ---
Dietary Progress Note Assessment: F/u. Spoke to nursing staff. Reports better PO intakes recently, around 50% of meals. Enjoys meat based dishes. Pt is having some nausea and few incidents of emesis. Will keep Ensure+ onboard as tolerated until PO intakes 75% or more consistently. Ht: 185.42 cm Wt: 92.5 kg BMI: 29.0 Last BM: 09/09/25 (09/09/25 20:33) MNA: 14 [place] Score: 20 Diet: 08/28/25 Breakfast General (Regular) Diet Diet Modifications: Food Texture: Level 7 - Regular Liquid Consistency: Level 0 - Thin Nutrition Percent Meal Consumed 25% 09/11/25 10:00 Percent Meal Consumed 25% 09/10/25 17:36 Percent Meal Consumed 25% 09/10/25 12:00 Percent Meal Consumed 25% 09/10/25 08:00 Percent Meal Consumed 90 09/09/25 17:31 Labs: RBC 4.17 X10^6/uL (4.5-5.9) L 09/11/25 04:25 Hgb 13.5 g/dL (13.5-17.5) 09/11/25 04:25 Hct 39.2 % (41-53) L 09/11/25 04:25 Creatinine 0.73 mg/dL (0.66-1.25) 09/11/25 04:25 Electronically Signed by: Selam Shelton 09/11/25 11:05 Clinical Dietitian [address] [id number]
[2025-09-11] MEDS: MAGNESIUM CHLORIDE 64 MG TABLET 128 MG PO (11:29)
[2025-09-11] MEDS: POTASSIUM CHLORIDE 20 MEQ TAB 40 MEQ PO (11:40)
--- NOTE | 2025-09-11 11:50 | PT.IPTN ---
Current Diagnoses Alcohol dependence with withdrawal, unspecified (08/27/25) Physical Therapy Treatment Note M2 PT-IP Current Condition Start: 09/10/25 12:11 Freq: NEEDED Status: Active Protocol: Document 09/10/25 12:11 KJ (Rec: 09/10/25 12:18 KJ [id number]) Physical Therapy Current Condition Current Condition Evaluation Date 09/10/25 Treatment Diagnosis impaired mobility M3 PT-IP Subjective Start: 09/10/25 12:11 Freq: NEEDED Status: Active Protocol: Document 09/11/25 11:30 AMB (Rec: 09/11/25 11:50 AMB [id number]) Subjective Physical Therapy Visit Type Type Treatment Note Visit Start Time 11:00 Visit Stop Time 11:30 Physical Therapy Visit Comments Patient Comments Pt is looking forward to moving Therapy Pain Assessment Pain When Pain Assessed At Rest Pain Present Pain Present Pain Reported Location Left Shoulder Description Aching Pain Behaviors Facial Grimacing,Guarding M4 PT-IP Mobility and Gait Start: 09/10/25 12:11 Freq: NEEDED Status: Active Protocol: Document 09/11/25 11:30 AMB (Rec: 09/11/25 11:50 AMB [id number]) PT-Bed Mobility Assessment Rolling Type of Rolling Roll to Right Supine to Sit Supine to Sit Minimal Assistance Scooting Scooting to Edge of Minimal Assistance Bed PT-Transfer Assessment Sit to and From Stand Sit to and from Contact Guard Assistance Stand Equipment Transfer Assistive Gait Belt,Front Wheeled Walker Device Transfers Transfer Destination Chair Transfer Technique Stand Step Pivot Transfer Ability Level of Assist 1 Person Assistance Comments Mobility Comments Tremors, balance dysfunction Gait Assessment Gait Gait Assistance Contact Guard Assist Required: Distance (Feet) 100 Assistive Devices Assistive Device Front Wheeled Walker Comments Gait Comments Paulo ambulated around the nurses station. He needs verbal cues to slow down, and the tremors make using the FWW more challenging, but he was able to ambulate safely with CGA and a FWW. M5 PT-IP Objective Assessments Start: 09/10/25 12:11 Freq: NEEDED Status: Active Protocol: Document 09/10/25 12:11 KJ (Rec: 09/10/25 12:18 KJ [id number]) Orientation Orientation/Cognition Orientation Name Language Function Garbled Speech,Word Finding Difficulties Ability Safety Awareness Decreased Safety Awareness Gross Range of Motion Upper Extremity ROM Assessment Within Functional Limits Lower Extremity ROM Assessment Within Functional Limits Strength Upper Extremity Strength Assessment Within Functional Limits Lower Extremity Strength Assessment Within Functional Limits Comments Strength Comments L shoulder pain due to old fx M6 PT-IP Treatment Start: 09/10/25 12:11 Freq: NEEDED Status: Active Protocol: Document 09/11/25 11:30 AMB (Rec: 09/11/25 11:50 AMB [id number]) Physical Therapy Treatment Other Treatments Other Treatment Squats at chair 2x10, instructed in bed exercises: Performed dying bug, hip abduction AROM in sidelying, single leg bridge, heavy cues for form and to slow down M7 PT-IP Assessment and Plan Start: 09/10/25 12:11 Freq: NEEDED Status: Active Protocol: Document 09/11/25 11:30 AMB (Rec: 09/11/25 11:50 AMB [id number]) PT Summary Assessment and Plan Summary Impairments Balance,Bed Mobility,Transfers,Gait,Activity Tolerance Assessment Summary Paulo was able to improve his mobility from yesterday significantly. He continues to need CGA and verbal cues for safety with ambulating with the FWW, but he was able to walk 100' and perform bed exercises and squats with heavy cues for form but overall good endurance and tolerance. He was very thankful for PT, likes to move. Not yet close to baseline due to tremors and ambulating with FWW, safety awareness. Goals Bed Mobility Goal Independent Transfer Goal Independent Gait Goal Independent Gait Distance 200 Days to Meet Goals 10 Frequency of Treatment Frequency Of Once a Day Treatment Treatment Plan Other standing balance, gait, ther ex Recommendations and Next Treatment Focus Discharge Recommendations PT Discharge Home with Assistance Recommendations - PT assist 1
[2025-09-11] MEDS: PROCHLORPERAZINE 10 MG/2 ML VIAL IV (18:14)
[2025-09-11] MEDS: FAMOTIDINE 20 MG TABLET PO (21:24)
[2025-09-12] VITALS (16 sets, daily range): BP systolic 146–163; BP diastolic 85–104; PULSE 80–105; RESP 18–20; TEMP 37–37.6; O2SAT 86–97
[2025-09-12] MEDS: THIAMINE 500 MG in SODIUM CHLORIDE 0.9% 100 ML 420 MG IV ×3 (03:25→17:45)
[2025-09-12 05:37] LABS: Calcium 8.6 mg/dL (8.4-10.2); Carbon Dioxide 33 mmol/L (22-32); Chloride 98 mmol/L (98-107); Estimated Glomerular Filt Rate > 60 mL/min (>60); Glucose 98 mg/dL (70-99); HEMOLYSIS < 15 (0-50); Magnesium 1.5 mg/dL (1.6-2.3); Potassium 3.7 mmol/L (3.4-5.1); Sodium 136 mmol/L (137-145)
[2025-09-12 05:40] LABS: Blood Urea Nitrogen 2 mg/dL (9-20)
[2025-09-12] MEDS: ONDANSETRON 4 MG/2 ML INJ IV ×3 (05:49→22:48)
[2025-09-12] MEDS: SODIUM CHLORIDE 0.9% 1,000 ML 75 ML IV ×2 (05:58→23:12)
[2025-09-12] MEDS: FAMOTIDINE 20 MG TABLET PO ×2 (07:34→20:12)
--- NOTE | 2025-09-12 07:58 | DI.RAD.S_ITS ---
PROCEDURE: XR CHEST 1V INDICATIONS: Possible aspiration pneumonia TECHNIQUE: One view of the chest was acquired. COMPARISON: [facility], CR, XR CHEST 1V, 09/09/2025, 14:46. FINDINGS: Surgical changes and devices: Postprocedural embolic material projecting over the neck, unchanged. PICC line tip at the expected location of the lower SVC. Lungs and pleura: Lungs are clear. No pleural effusions or pneumothorax. Mediastinum: Mediastinal contours appear normal. Heart size is normal. Bones and chest wall: No suspicious bony lesions. Overlying soft tissues appear unremarkable. IMPRESSION: No acute cardiopulmonary abnormality is seen. Dictated by: Andrei Layne M.D. on 09/12/2025 at 9:20 Approved by: Andrei Layne M.D. on 09/12/2025 at 9:23
[2025-09-12] MEDS: HEPARIN 5,000 UNIT/ML VIAL 5000 UNIT SUBCUT ×2 (09:56→20:10)
[2025-09-12] MEDS: DIVALPROEX DR 250 MG TABLET PO ×3 (10:11→20:12)
[2025-09-12] MEDS: NICOTINE 14 PATCH 14 MG TOP (10:12)
--- NOTE | 2025-09-12 11:53 | CM.DPNOTE ---
Addendum entered by JUAN FRANCISCO Zeng 09/12/25 15:53: DCP Update: LOGISTICS SERVICE REPRESENTATIVE called [facility] (ph#[phone]) and identified that their screener has left for the day, asked that LOGISTICS SERVICE REPRESENTATIVE call back tomorrow. Confirmed [facility] Psych Screener is at ph# [phone]. Screener is named Lewis. JOÃO Patiño Original Note: DCP Continued: Reviewed EMR and team rounds for pt?s medical status. Per hospitalist, pt exhibiting signs of benzodiazepine withdrawal; not medically cleared for DCR dispatch today. LOGISTICS SERVICE REPRESENTATIVE called [facility] and requested DCR shearing supervisor to call back Care Mail Censor for coordination of possible 72hour hold for pt safety. Plan: Pending medical clearance for DCR re-dispatch when pt able to ambulate without assistive device. CM Team will continue to follow for coordination of discharge plans. JOÃO Patiño
[2025-09-12] MEDS: MAGNESIUM CHLORIDE 64 MG TABLET 128 MG PO (12:09)
--- NOTE | 2025-09-12 13:28 | P.PN_ITS ---
Subjective Subjective Date Patient Seen: 09/12/25 Interval history: Chief complaint: Daily of tremors alcohol withdrawal suspected bipolar disorder manic phase prolonged benzodiazepine withdrawal History of present illness: 40-year-old male with history of alcohol dependence and severe alcohol withdrawal with alcohol withdrawal seizures who was currently hospital day 14. He was admitted with again severe alcohol intoxication and withdrawal. He would developed agitated delirium which was prolonged in nature. He required phenobarbital, Precedex infusion, scheduled Librium as well as lorazepam upon initial admission. Hospital course: Initially, his withdrawal symptoms improved and meds were weaned to some extent. However, patient developed increased agitation on September 02 requiring resumption of Precedex. On September 06 psychiatry consult was obtained with recommendations for diazepam 10 mg every 1-2 hours until CIWA score was below 10. After 50 mg of diazepam was administered the plan was to taper off phenobarbital and Precedex. He received several doses with initial good response. Subsequently the dose was increased to 20 mg hourly as needed. He ultimately received 320 mg in the 24 hour period of September 07, 400 mg in the 24 hour period of September 08, on 100 mg between midnight and 7:00 a.m. today. 09/09: diazepam was discontinued. He was given haloperidol x1 dose. He was weaned off of Precedex. An MRI was done which showed no obvious organic abnormality. A PICC line was placed. Labs were also obtained which showed no significant electrolyte derangements. He gradually became more alert and oriented. Over the course of the day, he remained confused but became able to make phone calls, speak to his dad, brother, and fiancee. He did remain confused and required frequent reorientation. 09/10: Overnight, he did require multiple doses of Haldol. He did demand things like his clothes and said he wanted to leave against medical advice. However due to his weakened state and confusion, he could be redirected. This morning, he is very pleasant and cooperative. He expresses that he is confused and is having difficulty differentiating between things that have happened versus things he has hallucinated. He is very appreciative of the care he is receiving and seeks reassurance about getting care and the plan while he is hospital. 09/11: No events overnight last administration of Haldol was at 4:19 a.m. on 08/10 (greater than 24 hours) calm and conversant this morning discussed the football game last night his team won discussed the potential diagnoses of bipolar disorder which he volunteered that he was suspicious of this as well as he has family members with the same diagnosis. He is tolerating the Depakote 250 mg t.i.d. that was started yesterday morning. Patient is medically cleared to be transferred to a psychiatric facility under DCR. Suspicion of bipolar disorder. By this time the are no signs of alcohol withdrawal. Patient also maybe having a prolonged benzodiazepine detoxification and withdrawal effect which may require slow taper. At 1:00 p.m. patient started having elevated blood pressures and anxiety. Discussed the case with Dr. Robby hart Psychiatry who recommended Valium 50 mg p.o. q.i.d. back off if there is sedation to prevent scoring on CIWA for benzodiazepine withdrawal 09/12: Patient is quite lethargic and somnolent rousable but probably over- sedated out 50 mg p.o. q.i.d.. We will back off today to 20 mg q.i.d. and continue to monitor closely Review of systems: No vomiting No chest pain No seizure Physical exam: Fine tremor Bradyphrenic and Bradykinetic but alert and conversive HEENT unremarkable No labored respiration Abdomen nondistended Extremities no edema Moves all extremities Assessment and plan: 1) Agitated delirium * There is concern for undiagnosed underlying bipolar disorder. Evidently this was raised last week by Dr. Hart as well. There is reportedly a strong family history of bipolar disorder in the patient's sibling, daughter, and a parent. He has been noted to have psychosis when he has been here as well. Nursing reports that there have been episodes where he appears manic as well. Certainly, it is very difficult to ascertain what specific underlying psychiatric disorder he may have as he is typically here when intoxicated or in a withdrawal state. However, given his emotional lability and volatility, and the concerns reportedly raise last week by Psychiatry about possibility of bipolar disorder, an abundance of caution and concern for his risk of another attempt at leaving against medical advice, * On 08/10 patient was started on valproic acid 250 mg t.i.d.. * This would be a good initial agent for bipolar disorder particularly with comorbid alcohol dependence. * Benzodiazepine taper starting at 50 mg of diazepam p.o. q.6 hours 08/12 de- escalated to 20 mg p.o. q.6 hours 2) severe alcohol dependence * Withdrawal has resolved. * He will benefit from inpatient rehabilitation. * Is engaged with a sponsor in AA 3) asthma * Is stable and well controlled at this time 4) Hx of suppressed TSH * As noted. He does have a history of a suppressed TSH with normal free T4. * Last checked in mid July. * TSH near reference range at 0.41 * Reflex free T4 in reference range 6. Malnutrition, severe * He has had very little nutrition over the last 2 weeks. Continues high-dose thiamine. He is also receiving a daily IV multivitamin and folic acid. * transition to oral multivitamin and folic acid. * He is beginning to eat partial meals today but is only achieving about 25% of his meals. * saline lock his IV once he is taking adequate fluids as well. 7) Frequent history of leaving the hospital against medical advice * He was felt to be an appropriate hold under [employer]'s law. Code status * Full Prophylaxis * Low Tim score; SCDs Disposition * ICU can deescalated care now to acute care * Medically stable and manageable for management in a long-term psychiatric facility * DC are referral in place Time-Based Coding :: 35 minutes spent with patient and on the chart (including review of chart, obtaining history, exam, reviewing outside data, placing orders, documenting exam and treatment plan, and counseling patient) Exam Vital Signs (past 8 hours): - 09/12/25 08:40 09/12/25 10:00 09/12/25 10:11 Temperature 99.5 F Pulse Rate 87 87 Respiratory Rate 18 Blood Pressure 147/90 H 147/90 H Pulse Oximetry 94 Oxygen Delivery Method Room Air Oxygen Flow Rate 0 09/12/25 11:49 Temperature Pulse Rate Respiratory Rate Blood Pressure 146/85 H Pulse Oximetry Oxygen Delivery Method Oxygen Flow Rate Oxygen Delivery Method Room Air Oxygen Flow Rate 0 Objective Labs 09/11/25 04:25 09/12/25 04:40 Labs: Laboratory Results - last 24 hr 09/12/25 04:40 Sodium 136 L Potassium 3.7 Chloride 98 Carbon Dioxide 33 H BUN 2 L Creatinine 0.64 L Estimated GFR > 60 BUN/Creatinine Ratio 3.1 L Glucose 98 Calcium 8.6 Magnesium 1.5 L PFSH Medical History Asthma Alcohol abuse Social History household members: family alcohol intake: current Assessment & Plan Time-Based Coding :: [TOTAL MINUTES] spent with patient and on the chart (including review of chart, obtaining history, exam, reviewing outside data, placing orders, documenting exam and treatment plan, and counseling patient) on [DATE].
--- NOTE | 2025-09-12 17:27 | PT.IPTN ---
Current Diagnoses Alcohol dependence with withdrawal, unspecified (08/27/25) Physical Therapy Treatment Note M2 PT-IP Current Condition Start: 09/10/25 12:11 Freq: NEEDED Status: Active Protocol: Document 09/12/25 16:22 AB (Rec: 09/12/25 17:26 AB Laptop) Physical Therapy Current Condition Current Condition Evaluation Date 09/10/25 Treatment Diagnosis impaired mobility M3 PT-IP Subjective Start: 09/10/25 12:11 Freq: NEEDED Status: Active Protocol: Document 09/12/25 16:22 AB (Rec: 09/12/25 17:26 AB Laptop) Subjective Physical Therapy Visit Type Type Treatment Note Visit Start Time 16:43 Visit Stop Time 17:06 Physical Therapy Visit Comments Patient Comments Patient agreeable to participate in physical therapy. Patient reports having no pain start of session. Therapy Pain Assessment Pain When Pain Assessed At Rest Pain Present Pain Present Denied Pain M4 PT-IP Mobility and Gait Start: 09/10/25 12:11 Freq: NEEDED Status: Active Protocol: Document 09/12/25 16:22 AB (Rec: 09/12/25 17:26 AB Laptop) PT-Bed Mobility Assessment Rolling Type of Rolling Roll to Right,Roll to Left Level of Assist Independent Sit to Supine Sit to Supine Standby Assistance PT-Transfer Assessment Sit to and From Stand Sit to and from Contact Guard Assistance Stand Equipment Transfer Assistive Gait Belt,Front Wheeled Walker Device Transfer Ability Level of Assist 1 Person Assistance Comments Mobility Comments Tremors, balance dysfunction Gait Assessment Gait Gait Assistance Contact Guard Assist Required: Distance (Feet) 160 Assistive Devices Assistive Device Front Wheeled Walker Comments Gait Comments Paulo ambulated 160 feet using FWW CGA required only one VC to dec velocity, verbal cues and second trial of turn with FWW due to holding FWW in air rather than pushing FWW through turn. Initiated marching in place standing in front of bed FWW in place but without UE use, with 2 trials patient required Min assist to remain upright start of session. Second trial of marching patient able to perform X 10 steps without device with CGA back to bed, but does lean back slightly, 3rd trial without device CGA side stepping along side bed ( bed behind patient ) 6 steps L and R CGA. PT-Balance Assessment Sitting Balance and Reactions Static Sitting Good Balance Ability Dynamic Sitting Good Balance Ability Standing Balance and Reactions Static Standing Fair Balance Ability Dynamic Standing Poor Balance Ability M5 PT-IP Objective Assessments Start: 09/10/25 12:11 Freq: NEEDED Status: Active Protocol: Document 09/10/25 12:11 KJ (Rec: 09/10/25 12:18 KJ [id number]) Orientation Orientation/Cognition Orientation Name Language Function Garbled Speech,Word Finding Difficulties Ability Safety Awareness Decreased Safety Awareness Gross Range of Motion Upper Extremity ROM Assessment Within Functional Limits Lower Extremity ROM Assessment Within Functional Limits Strength Upper Extremity Strength Assessment Within Functional Limits Lower Extremity Strength Assessment Within Functional Limits Comments Strength Comments L shoulder pain due to old fx M6 PT-IP Treatment Start: 09/10/25 12:11 Freq: NEEDED Status: Active Protocol: Document 09/12/25 16:22 AB (Rec: 09/12/25 17:26 AB Laptop) Physical Therapy Treatment Other Treatments Other Treatment squats X 10 vc for inc hip hinge, B heel raise with UE Performed support X 10 X 2 VC to lower slowly, dying bug, single leg bridge and sidelying hip abd X 10 each with assist to hold trunk in correct position for sidelying bridge and VC for LE position. M7 PT-IP Assessment and Plan Start: 09/10/25 12:11 Freq: NEEDED Status: Active Protocol: Document 09/12/25 16:22 AB (Rec: 09/12/25 17:26 AB Laptop) PT Summary Assessment and Plan Summary Impairments Balance,Bed Mobility,Transfers,Gait,Activity Tolerance Assessment Summary Paulo required Minimal assist marching in place without device start of session with X 2 trails of 2-3 marches , Post ambulation with FWW 160 feet CGA, able to march in place X 10 without UE support CGA slight lean retro, but did not require min assist to remain upright and also was able to side step along side the bed ( bed behind patient ) with CGA 6 steps L and 6 steps R. Patient cooperative through out. Goals Bed Mobility Goal Independent Transfer Goal Independent Gait Goal Independent Gait Distance 200 Days to Meet Goals 10 Frequency of Treatment Frequency Of Once a Day Treatment Treatment Plan Other standing balance, gait, ther ex Recommendations and Next Treatment Focus Recommendations To Nursing Amount of Assist 2 Person Assist Needed Discharge Recommendations PT Discharge Home with Assistance Recommendations Other Discharge Pt will benefit from continuing skilled PT to regain Recommendations independence - PT assist 1
[2025-09-12] MEDS: CALCIUM CARBONATE 500 MG TAB 1000 MG PO (18:51)
[2025-09-12] MEDS: METOCLOPRAMIDE 10 MG/2 ML INJ IV (23:23)
[2025-09-13] VITALS (11 sets, daily range): BP systolic 153–168; BP diastolic 90–121; PULSE 81–110; RESP 16–24; TEMP 36.2–37.4; O2SAT 89–98
[2025-09-13] MEDS: THIAMINE 500 MG in SODIUM CHLORIDE 0.9% 100 ML 420 MG IV (02:39)
[2025-09-13] MEDS: ONDANSETRON 4 MG/2 ML INJ IV ×3 (02:40→16:54)
[2025-09-13] MEDS: BENZONATATE 100 MG CAPSULE PO ×2 (02:40→03:31)
[2025-09-13] MEDS: LIDOCAINE VISCOUS 2% 15 ML SOLUTION PO (03:39)
--- NOTE | 2025-09-13 06:16 | PC.NURSE ---
NOC Shift Note- Patient complained of hiccups since the prior day. has tried drinking water and holding breath. neither has helped. Messaged hospitalist Dr. Muñoz. recieved order for IV reglan, given with no noted improvement. tried multiple other none tricks with no improvement. Talked with Dr. Wanda solis recieved an order for thorizine, was unavailable during NOC shift. tried vicous lidocaine as ordered per Wanda Horvath with nosuccess noted. Will try to get the thorizine as soon as thepharmis here.
[2025-09-13 06:32] LABS: Calcium 8.8 mg/dL (8.4-10.2); Carbon Dioxide 32 mmol/L (22-32); Chloride 98 mmol/L (98-107); Estimated Glomerular Filt Rate > 60 mL/min (>60); Glucose 94 mg/dL (70-99); HEMOLYSIS 20 (0-50); Magnesium 1.7 mg/dL (1.6-2.3); Potassium 3.8 mmol/L (3.4-5.1); Sodium 137 mmol/L (137-145)
[2025-09-13 06:33] LABS: Blood Urea Nitrogen 2 mg/dL (9-20)
[2025-09-13] MEDS: chlorproMAZINE 25 MG in SODIUM CHLORIDE 0.9% 500 ML 1002 MG IV (07:06)
[2025-09-13] MEDS: DIVALPROEX DR 250 MG TABLET PO ×3 (10:05→20:18)
[2025-09-13] MEDS: FAMOTIDINE 20 MG TABLET PO ×2 (10:05→20:18)
[2025-09-13] MEDS: HEPARIN 5,000 UNIT/ML VIAL 5000 UNIT SUBCUT ×2 (10:06→20:17)
--- NOTE | 2025-09-13 10:06 | P.PN_ITS ---
Subjective Subjective Date Patient Seen: 09/13/25 Time Patient Seen: 09:30 Interval history: Pt seen for follow up of Alcohol Withdrawal and medication adjustment consultation. Following up with this 40-year-old male referred by inpatient hospitalist for evaluation of severe alcohol use disorder, dependence, in assistance with managing alcohol withdrawal. Today, the patient reports being much more comfortable and although rather sleepy, he was able to be aroused and engage in a coherent conversation. The patient continues to report motivation to get into rehab and become sober. In the last several days he is required fairly high doses of diazepam but has been much less agitated in the last 24 hours has not required use of any antipsychotics or other medications to address agitation. During my conversation with the patient he mentioned that if possible, he would like to see if he can get into a rehab facility in the [facility] to be close to his family for better support. The patient reports feeling somewhat down in his frustrated with being stuck in the hospital room for the last several days, but he denies any suicidal or homicidal ideation, intent, or plan. We discussed reassessing further and obtaining more history once the patient is more awake and coherent. Exam Vital Signs (past 8 hours): - 09/13/25 03:00 Temperature 98.7 F Pulse Rate 84 Respiratory Rate 18 Blood Pressure 154/92 H Pulse Oximetry 95 Oxygen Flow Rate 0 Oxygen Delivery Method Room Air Oxygen Flow Rate 0 Narrative Exam Narrative: MENTAL STATUS EXAM * Appearance: The patient is well-developed, muscular appearing male who appears stated age. He is asleep snoring in his hospital bed when we 1st approached but able to be aroused. * Grooming: Dressed in hospital attire covered in a blanket. * Eye Contact: Fair, but eyes often closed or drooping. * Behavior: Calm and cooperative with the examination. * Motor Movement: No abnormal motor movements noted. * Gait: Not tested * Speech: Generally soft in tone, some mild mumbling, but patient able to articulate fairly clearly if encouraged. * Mood: Sad and low. * Affect: Generally sleepy did not appear to be particularly dysphoric. * Thought Process: Linear and logical for the most part, but still somewhat sedated. * Thought Content: No SI/HI, intent, or plan. No evidence of a thought or perceptual disturbance. * Attention: Somewhat sleepy and sedated but otherwise attentive. * Orientation: Oriented to person, place, time, and circumstance. * Memory: Intact for interview, not formally tested. * Insight: Fair * Judgment: Fair * Impulse Control: Intact. Objective Labs 09/11/25 04:25 09/13/25 05:50 Labs: Laboratory Results - last 24 hr 09/13/25 05:50 Sodium 137 Potassium 3.8 Chloride 98 Carbon Dioxide 32 BUN 2 L Creatinine 0.73 Estimated GFR > 60 BUN/Creatinine Ratio 2.7 L Glucose 94 Calcium 8.8 Magnesium 1.7 [facility] Medical History Asthma Alcohol abuse Social History household members: family alcohol intake: current Assessment & Plan Assessment & Plan narrative: ASSESSMENT/MEDICAL DECISION MAKING This 40-year-old male with a long and very severe alcohol use disorder has demonstrated difficulty withdrawing from alcohol despite repeated in significant dosing of phenobarbital and dexmedetomidine. Recommended strategy to date is that since he presented initially with a very high blood alcohol level in addition to having a urine drug screen positive for benzodiazepine, that he would likely have a severe level of physiologic dependence and likely a high degree of up regulated NAREN receptors in his brain. Up to this point, we have recommended fairly high levels of IV benzodiazepines while tapering and discontinuing phenobarb and dexmedetomidine and monitoring CIWA scores and in particular respiration and blood pressure. Since his CIWA scores seem to be fairly stable, his behavior has improved, would begin to back off on his daily dosing of diazepam. RECOMMENDATIONS: 1. Decrease diazepam to 20 mg p.o. t.i.d. 2. Continue to monitor CIWA scores particularly blood pressure and adjust diazepam dose accordingly. 3. Continue supportive care and attention to respiratory status and blood pressure. 5. Will continue to follow with you. Time-Based Coding :: [TOTAL MINUTES] spent with patient and on the chart (including review of chart, obtaining history, exam, reviewing outside data, placing orders, documenting exam and treatment plan, and counseling patient) on [DATE]. PROFEE Clinical Ob Document charge(s): Yes
[2025-09-13] MEDS: NICOTINE 14 PATCH 14 MG TOP (10:07)
[2025-09-13] MEDS: MAGNESIUM CHLORIDE 64 MG TABLET 128 MG PO (10:38)
--- NOTE | 2025-09-13 11:24 | P.PN_ITS ---
Subjective Subjective Date Patient Seen: 09/13/25 Interval history: Chief complaint: Daily of tremors alcohol withdrawal suspected bipolar disorder manic phase prolonged benzodiazepine withdrawal History of present illness: 40-year-old male with history of alcohol dependence and severe alcohol withdrawal with alcohol withdrawal seizures who was currently hospital day 14. He was admitted with again severe alcohol intoxication and withdrawal. He would developed agitated delirium which was prolonged in nature. He required phenobarbital, Precedex infusion, scheduled Librium as well as lorazepam upon initial admission. Hospital course: Initially, his withdrawal symptoms improved and meds were weaned to some extent. However, patient developed increased agitation on September 02 requiring resumption of Precedex. On September 06 psychiatry consult was obtained with recommendations for diazepam 10 mg every 1-2 hours until CIWA score was below 10. After 50 mg of diazepam was administered the plan was to taper off phenobarbital and Precedex. He received several doses with initial good response. Subsequently the dose was increased to 20 mg hourly as needed. He ultimately received 320 mg in the 24 hour period of September 07, 400 mg in the 24 hour period of September 08, on 100 mg between midnight and 7:00 a.m. today. 09/09: diazepam was discontinued. He was given haloperidol x1 dose. He was weaned off of Precedex. An MRI was done which showed no obvious organic abnormality. A PICC line was placed. Labs were also obtained which showed no significant electrolyte derangements. He gradually became more alert and oriented. Over the course of the day, he remained confused but became able to make phone calls, speak to his dad, brother, and fiancee. He did remain confused and required frequent reorientation. 09/10: Overnight, he did require multiple doses of Haldol. He did demand things like his clothes and said he wanted to leave against medical advice. However due to his weakened state and confusion, he could be redirected. This morning, he is very pleasant and cooperative. He expresses that he is confused and is having difficulty differentiating between things that have happened versus things he has hallucinated. He is very appreciative of the care he is receiving and seeks reassurance about getting care and the plan while he is hospital. 09/11: No events overnight last administration of Haldol was at 4:19 a.m. on 08/10 (greater than 24 hours) calm and conversant this morning discussed the football game last night his team won discussed the potential diagnoses of bipolar disorder which he volunteered that he was suspicious of this as well as he has family members with the same diagnosis. He is tolerating the Depakote 250 mg t.i.d. that was started yesterday morning. Patient is medically cleared to be transferred to a psychiatric facility under [facility]. Suspicion of bipolar disorder. By this time the are no signs of alcohol withdrawal. Patient also maybe having a prolonged benzodiazepine detoxification and withdrawal effect which may require slow taper. At 1:00 p.m. patient started having elevated blood pressures and anxiety. Discussed the case with Dr. Robby hart Psychiatry who recommended Valium 50 mg p.o. q.i.d. back off if there is sedation to prevent scoring on CIWA for benzodiazepine withdrawal 09/12: Patient is quite lethargic and somnolent rousable but probably over- sedated out 50 mg p.o. q.i.d.. We will back off today to 20 mg q.i.d. and continue to monitor closely 09/13: Patient is conversant follows conversation much improved from yesterday not strictly cogent but is capable of some complex thinking still has a coarse tremor was reduced from diazepam 50 mg q.i.d. 2 days ago to 20 mg q.i.d.. Excerpt from Dr. Hart consultation today: This 40-year-old male with a long and very severe alcohol use disorder has demonstrated difficulty withdrawing from alcohol despite repeated in significant dosing of phenobarbital and dexmedetomidine. Recommended strategy to date is that since he presented initially with a very high blood alcohol level in addition to having a urine drug screen positive for benzodiazepine, that he would likely have a severe level of physiologic dependence and likely a high degree of up regulated NAREN receptors in his brain. Up to this point, we have recommended fairly high levels of IV benzodiazepines while tapering and discontinuing phenobarb and dexmedetomidine and monitoring CIWA scores and in particular respiration and blood pressure. Since his CIWA scores seem to be fairly stable, his behavior has improved, would begin to back off on his daily dosing of diazepam. RECOMMENDATIONS: 1. Decrease diazepam to 20 mg p.o. t.i.d. 2. Continue to monitor CIWA scores particularly blood pressure and adjust diazepam dose accordingly. 3. Continue supportive care and attention to respiratory status and blood pressure. 5. Will continue to follow with you. Review of systems: No vomiting No chest pain No seizure Physical exam: Fine tremor Bradyphrenic and Bradykinetic but alert and conversive HEENT unremarkable No labored respiration Abdomen nondistended Extremities no edema Moves all extremities Assessment and plan: Agitated delirium secondary to alcohol withdrawal, suspected benzodiazepine withdrawal, and suspected manic phase of bipolar disorder * There is concern for undiagnosed underlying bipolar disorder. Evidently this was raised last week by Dr. Hart as well. * On 08/10 patient was started on valproic acid 250 mg t.i.d.. With the parents satisfactory results * Benzodiazepine taper starting 08/11: At 50 mg of diazepam p.o. q.6 hours 08/12 de-escalated to 20 mg p.o. q.6 hours de-escalated to 20 mg t.i.d. on 08/13 severe alcohol dependence * Withdrawal has resolved. * He will benefit from inpatient rehabilitation. * Is engaged with a sponsor in asthma * Is stable and well controlled at this time Malnutrition, severe * Loaded with thiamine IV * Maintained with thiamine p.o. * Advance nutrition Frequent history of leaving the hospital against medical advice * He was felt to be an appropriate hold under [place] law. Code status * Full Prophylaxis * Low Tim score; SCDs Disposition * Acute care status inpatient * [facility] referral in place * Continue to ambulate patient and work on gait stability without walking assistance and capability to perform personal ADLs as per requested for transfer to psychiatric facility Time-Based Coding :: 35 minutes spent with patient and on the chart (including review of chart, obtaining history, exam, reviewing outside data, placing orders, documenting exam and treatment plan, and counseling patient) Exam Vital Signs (past 8 hours): Oxygen Delivery Method Room Air Oxygen Flow Rate 0 Objective Labs 09/11/25 04:25 09/13/25 05:50 Labs: Laboratory Results - last 24 hr 09/13/25 05:50 Sodium 137 Potassium 3.8 Chloride 98 Carbon Dioxide 32 BUN 2 L Creatinine 0.73 Estimated GFR > 60 BUN/Creatinine Ratio 2.7 L Glucose 94 Calcium 8.8 Magnesium 1.7 [facility] Medical History Asthma Alcohol abuse Social History household members: family alcohol intake: current Assessment & Plan Time-Based Coding :: [TOTAL MINUTES] spent with patient and on the chart (including review of chart, obtaining history, exam, reviewing outside data, placing orders, documenting exam and treatment plan, and counseling patient) on [DATE].
--- NOTE | 2025-09-13 12:05 | DIET.PN1 ---
Dietary Progress Note Assessment: Spoke to RN, pt eating some at meals if awake. Sometimes does Ensure+, sometimes doesn't. Pt more awake today per EMR review. Will continue with previous intervention. Ht: 185.42 cm Wt: 91 kg BMI: 29.0 UBW: Last BM: 09/09/25 (09/09/25 20:33) MNA: 14 Bereket Score: 17 Diet: 08/28/25 Breakfast General (Regular) Diet Diet Modifications: Food Texture: Level 7 - Regular Liquid Consistency: Level 0 - Thin Nutrition Percent Meal Consumed patient asleep 09/13/25 09:25 Percent Meal Consumed 25% 09/12/25 13:00 Percent Meal Consumed 25% 09/11/25 16:00 Labs: RBC 4.17 X10^6/uL (4.5-5.9) L 09/11/25 04:25 Hgb 13.5 g/dL (13.5-17.5) 09/11/25 04:25 Hct 39.2 % (41-53) L 09/11/25 04:25 Creatinine 0.73 mg/dL (0.66-1.25) 09/13/25 05:50 Nutrition Diagnosis: Inadequate oral intakes r/t altered mental status aeb avg PO intakes <50% for 12 days (severe) Interventions: Protein supplementation with meals, snacks/Ensure+ as needed when awake between meals EER: 2300 kcals (25 kcals/kg per BMI) 90 g protein (1g/kg) Monitoring/Evaluations: PO intakes Electronically Signed by: Selam Shelton 09/13/25 12:05 Clinical Dietitian [address] [address]
--- NOTE | 2025-09-13 16:09 | PT.IPTN ---
Current Diagnoses Alcohol dependence with withdrawal, unspecified (08/27/25) Physical Therapy Treatment Note M2 PT-IP Current Condition Start: 09/10/25 12:11 Freq: NEEDED Status: Active Protocol: Document 09/12/25 16:22 AB (Rec: 09/12/25 17:26 AB Laptop) Physical Therapy Current Condition Current Condition Evaluation Date 09/10/25 Treatment Diagnosis impaired mobility M3 PT-IP Subjective Start: 09/10/25 12:11 Freq: NEEDED Status: Active Protocol: Document 09/13/25 16:09 DLM (Rec: 09/13/25 17:06 DLM Desktop) Subjective Physical Therapy Visit Type Type Treatment Note Visit Start Time 15:30 Visit Stop Time 16:09 Notes 39 min Number of IRRIGATION SYSTEM OPERATOR Visits 0 Physical Therapy Visit Comments Patient Comments He is tired of being in the bed and hospital. He wants to get better. Therapy Pain Assessment Pain When Pain Assessed During Mobility Pain Present Pain Present Denied Pain M4 PT-IP Mobility and Gait Start: 09/10/25 12:11 Freq: NEEDED Status: Active Protocol: Document 09/13/25 16:09 DLM (Rec: 09/13/25 17:06 DLM Desktop) PT-Bed Mobility Assessment Rolling Level of Assist Independent Supine to Sit Supine to Sit Independent Sit to Supine Sit to Supine Independent Scooting Scooting to Edge of Independent Bed PT-Transfer Assessment Sit to and From Stand Sit to and from Standby Assistance Stand Equipment Transfer Assistive Gait Belt Device Transfers Transfer Destination Bed Transfer Technique Stand Step Pivot Transfer Ability Level of Assist Standby Assistance,Contact Guard Assistance,Use of Upper Extremities Comments Mobility Comments He is able to stand without FWW this visit with improved balance Gait Assessment Gait Gait Assistance Standby Assistance,Contact Guard Assist Required: Distance (Feet) 300 Assistive Devices Assistive Device Gait Belt Gait Deviations General Gait Pattern Ataxic Factors Limiting Gait Function Factors Limiting Decreased Activity Tolerance,Poor Balance Gait Function Comments Gait Comments He has intermittent lateral staggering but no overt loss of balance, he occasionally catches one foot on the other which creates a stagger but no overt loss of balance PT-Balance Assessment Sitting Balance and Reactions Static Sitting Normal Balance Ability Dynamic Sitting Good Balance Ability Standing Balance and Reactions Static Standing Fair Balance Ability Dynamic Standing Fair Balance Ability Device Used none Balance Tests Single Limb Standing 3 sec each LE Romberg increased sway but no loss of balance Tandem Standing needs assist with left LE in front of right Comments Other Balance Tests/ standing balance training: narrow base of support- Eyes Deviations/Treatment open and closed, head motions : Functional reaching standing and sitting M5 PT-IP Objective Assessments Start: 09/10/25 12:11 Freq: NEEDED Status: Active Protocol: Document 09/13/25 16:09 DLM (Rec: 09/13/25 17:06 DLM Desktop) Orientation Orientation/Cognition Level of Alertness Alert Language Function No Deficits Noted Ability Safety Awareness Decreased Safety Awareness Memory Description Short Term Impaired Comments pleasant and cooperative with treatment decreased awareness of need for safety Coordination Assessment Gross Coordination Gross Coordination Impaired Assessment Finger to Nose Test Moderate Impairment Pronation/Supination Moderate Impairment Test Foot Tapping Test Minimal Impairment Muscle Tone Muscle Tone WNL Yes M6 PT-IP Treatment Start: 09/10/25 12:11 Freq: NEEDED Status: Active Protocol: Document 09/13/25 16:09 DLM (Rec: 09/13/25 17:06 DLM Desktop) Physical Therapy Treatment Education Education Provided Safety Other Treatments Other Treatment sit-stand 2 x 5 reps without UE support from bed Performed M7 PT-IP Assessment and Plan Start: 09/10/25 12:11 Freq: NEEDED Status: Active Protocol: Document 09/13/25 16:09 DLM (Rec: 09/13/25 17:06 DLM Desktop) PT Summary Assessment and Plan Summary Impairments Balance,Coordination,Transfers,Gait,Activity Tolerance Progress Towards Progressing Toward Goals Goals Assessment Summary Paulo is alert sitting edge of bed this visit. He is eager to get up and ambulate. He shows improved gait and balance this visit. He was able to progress off the FWW and ambulate in the ber[place] without a device. He continues to show increased lateral staggering but improved ability to recover his balance. His anticipatory balance reactions continue to be delayed but show improvement. Pt ambulated with shoes on this visit per his request. Will continue Physical Therapy to address his gait progression, balance and coordination to help him return to independent mobility and gait. Goals Bed Mobility Goal Independent Transfer Goal Independent Gait Goal Independent Gait Distance 200 Days to Meet Goals 10 Frequency of Treatment Frequency Of Once a Day Treatment Treatment Plan Physical Therapy Transfer Training,Gait Training,Therapeutic Exercise, Treatment Plan Balance Retraining,Discharge Planning,Neuromuscular Re- ed,Coordination Retraining Precautions Other Precautions fall risk Recommendations To Nursing Amount of Assist 1 Person Assist Needed Discharge Recommendations PT Discharge Home with Assistance Recommendations - PT assist 1
[2025-09-13] MEDS: DOCUSATE 100 MG CAPSULE PO (17:30)
[2025-09-14] VITALS (9 sets, daily range): BP systolic 129–0176; BP diastolic 83–99; PULSE 88–100; RESP 16–19; TEMP 36.2–37.4; O2SAT 90–99
[2025-09-14] MEDS: CALCIUM CARBONATE 500 MG TAB 1000 MG PO ×2 (01:16→05:31)
[2025-09-14 05:03] LABS: Magnesium 1.9 mg/dL (1.6-2.3)
--- NOTE | 2025-09-14 08:06 | CM.DPC ---
SAIMA left VM with Domenica at [facility]. Saima updated Domenica on patient's mobility. SAIMA requested assistance in INPT Detox placement.
[2025-09-14] MEDS: NICOTINE 14 PATCH 14 MG TOP (08:33)
[2025-09-14] MEDS: DIVALPROEX DR 250 MG TABLET PO (08:34)
[2025-09-14] MEDS: FAMOTIDINE 20 MG TABLET PO (08:34)
[2025-09-14] MEDS: HEPARIN 5,000 UNIT/ML VIAL 5000 UNIT SUBCUT (08:34)
--- NOTE | 2025-09-14 10:41 | CM.DPC ---
Addendum entered by Zeny Alonso RN 09/14/25 12:18: [facility] can accept patient today. [facility] at 1330. Patient is aware. RN Cristiana aware. Addendum entered by Zeny Alonso RN 09/14/25 11:19: Per Tracy with [facility], Nurse to Nurse report will take place today. Formal acceptance of patient pending the above report. Original Note: Patient profile sent to [facility] ph# [phone]. Fx# [phone].
--- NOTE | 2025-09-14 12:04 | PT.IPTN ---
Current Diagnoses Alcohol dependence with withdrawal, unspecified (08/27/25) Physical Therapy Treatment Note M2 PT-IP Current Condition Start: 09/10/25 12:11 Freq: NEEDED Status: Active Protocol: Document 09/12/25 16:22 AB (Rec: 09/12/25 17:26 AB Laptop) Physical Therapy Current Condition Current Condition Evaluation Date 09/10/25 Treatment Diagnosis impaired mobility M3 PT-IP Subjective Start: 09/10/25 12:11 Freq: NEEDED Status: Active Protocol: Document 09/14/25 11:00 AB (Rec: 09/14/25 11:45 AB [id number]) Subjective Physical Therapy Visit Type Type Treatment Note Visit Start Time 11:03 Visit Stop Time 11:30 Notes 27 min Number of WATER TREATMENT SPECIALIST Visits 1 Physical Therapy Visit Comments Patient Comments Patient agreeable to participate Therapy Pain Assessment Pain When Pain Assessed After Treatment Location muscle soreness quads Intensity 0 M4 PT-IP Mobility and Gait Start: 09/10/25 12:11 Freq: NEEDED Status: Active Protocol: Document 09/14/25 11:00 AB (Rec: 09/14/25 11:45 AB [id number]) PT-Transfer Assessment Sit to and From Stand Sit to and from Independent Stand Equipment Transfer Assistive Gait Belt Device Transfers Transfer Destination Chair Transfer Technique Stand Pivot Transfer Ability Level of Assist Independent Comments Mobility Comments Patient transfers bed to chair I Gait Assessment Gait Gait Assistance Standby Assistance,Contact Guard Assist Required: Distance (Feet) 260 Assistive Devices Assistive Device Gait Belt Gait Deviations General Gait Pattern Ataxic Factors Limiting Gait Function Factors Limiting Poor Balance Gait Function Comments Gait Comments Patient ambulated 115 feet CGA then 260 feet supervision without device, veers to R X 3 and tandem steps X 2 slightly unsteady but no LOB and no physical assist required. PT-Balance Assessment Sitting Balance and Reactions Static Sitting Good Balance Ability Standing Balance and Reactions Static Standing Good Balance Ability Dynamic Standing Fair Balance Ability Comments Other Balance Tests/ Balance ex this session with CGA of SLS, tandem stance Deviations/Treatment with eyes closed, Romberg with eyes closed and head : turns, tandem stepping 8ft X 3 and retro stepping 8 feet X 3 with intermittent UE use all performed near counter or rail. M5 PT-IP Objective Assessments Start: 09/10/25 12:11 Freq: NEEDED Status: Active Protocol: Document 09/13/25 16:09 DLM (Rec: 09/13/25 17:06 DLM Desktop) Orientation Orientation/Cognition Level of Alertness Alert Language Function No Deficits Noted Ability Safety Awareness Decreased Safety Awareness Memory Description Short Term Impaired Comments pleasant and cooperative with treatment decreased awareness of need for safety Coordination Assessment Gross Coordination Gross Coordination Impaired Assessment Finger to Nose Test Moderate Impairment Pronation/Supination Moderate Impairment Test Foot Tapping Test Minimal Impairment Muscle Tone Muscle Tone WNL Yes M6 PT-IP Treatment Start: 09/10/25 12:11 Freq: NEEDED Status: Active Protocol: Document 09/14/25 11:00 AB (Rec: 09/14/25 11:45 AB [id number]) Physical Therapy Treatment Other Treatments Other Treatment squat to chair touch X 10 X 3, side stepping in mini Performed squat 8 feet L and R with UE support, and heel raises X 15 with UE support M7 PT-IP Assessment and Plan Start: 09/10/25 12:11 Freq: NEEDED Status: Active Protocol: Document 09/14/25 11:00 AB (Rec: 09/14/25 11:45 AB [id number]) PT Summary Assessment and Plan Summary Impairments Balance,Coordination,Transfers,Gait,Activity Tolerance Progress Towards Progressing Toward Goals Goals Assessment Summary Paulo able to ambulate without device with supervision, gait deviations persist and is occasionally unsteady but did not require physical assist during ambulation. End of session reports no pain, but quad soreness from exercise. Patient left in chair call light within reach , nursing made aware there was no alarm on start of session. Nursing verbalizes they will get an alarm on chair. Patient comments quad have muscles soreness end of session, but feels no pain. Goals Bed Mobility Goal Independent Transfer Goal Independent Gait Goal Independent Gait Distance 200 Days to Meet Goals 10 Treatment Plan Physical Therapy Transfer Training,Gait Training,Therapeutic Exercise, Treatment Plan Balance Retraining,Discharge Planning,Neuromuscular Re- ed,Coordination Retraining Precautions Other Precautions fall risk Recommendations To Nursing Amount of Assist Independent Needed Discharge Recommendations PT Discharge Home with Assistance Recommendations - PT assist 1
--- NOTE | 2025-09-14 12:30 | P.DS_ITS ---
History of Present Illness History of Present Illness Chief complaint: Alcohol withdrawal Narrative: Chief complaint: Daily of tremors alcohol withdrawal suspected bipolar disorder manic phase prolonged benzodiazepine withdrawal History of present illness: 40-year-old male with history of alcohol dependence and severe alcohol withdrawal with alcohol withdrawal seizures who was currently hospital day 14. He was admitted with again severe alcohol intoxication and withdrawal. He would developed agitated delirium which was prolonged in nature. He required phenobarbital, Precedex infusion, scheduled Librium as well as lorazepam upon initial admission. Hospital course: Initially, his withdrawal symptoms improved and meds were weaned to some extent. However, patient developed increased agitation on September 02 requiring resumption of Precedex. On September 06 psychiatry consult was obtained with recommendations for diazepam 10 mg every 1-2 hours until CIWA score was below 10. After 50 mg of diazepam was administered the plan was to taper off phenobarbital and Precedex. He received several doses with initial good response. Subsequently the dose was increased to 20 mg hourly as needed. He ultimately received 320 mg in the 24 hour period of September 07, 400 mg in the 24 hour period of September 08, on 100 mg between midnight and 7:00 a.m. today. 09/09: diazepam was discontinued. He was given haloperidol x1 dose. He was weaned off of Precedex. An MRI was done which showed no obvious organic abnormality. A PICC line was placed. Labs were also obtained which showed no significant electrolyte derangements. He gradually became more alert and oriented. Over the course of the day, he remained confused but became able to make phone calls, speak to his dad, brother, and fiancee. He did remain confused and required frequent reorientation. 09/10: Overnight, he did require multiple doses of Haldol. He did demand things like his clothes and said he wanted to leave against medical advice. However due to his weakened state and confusion, he could be redirected. This morning, he is very pleasant and cooperative. He expresses that he is confused and is having difficulty differentiating between things that have happened versus things he has hallucinated. He is very appreciative of the care he is receiving and seeks reassurance about getting care and the plan while he is hospital. 09/11: No events overnight last administration of Haldol was at 4:19 a.m. on 08/10 (greater than 24 hours) calm and conversant this morning discussed the football game last night his team won discussed the potential diagnoses of bipolar disorder which he volunteered that he was suspicious of this as well as he has family members with the same diagnosis. He is tolerating the Depakote 250 mg t.i.d. that was started yesterday morning. Patient is medically cleared to be transferred to a psychiatric facility under DCR. Suspicion of bipolar disorder. By this time the are no signs of alcohol withdrawal. Patient also maybe having a prolonged benzodiazepine detoxification and withdrawal effect which may require slow taper. At 1:00 p.m. patient started having elevated blood pressures and anxiety. Discussed the case with Dr. Robby hart Psychiatry who recommended Valium 50 mg p.o. q.i.d. back off if there is sedation to prevent scoring on CIWA for benzodiazepine withdrawal 09/12: Patient is quite lethargic and somnolent rousable but probably over- sedated out 50 mg p.o. q.i.d.. We will back off today to 20 mg q.i.d. and continue to monitor closely 09/13: Patient is conversant follows conversation much improved from yesterday not strictly cogent but is capable of some complex thinking still has a coarse tremor was reduced from diazepam 50 mg q.i.d. 2 days ago to 20 mg q.i.d.. Excerpt from Dr. Hart consultation today: This 40-year-old male with a long and very severe alcohol use disorder has demonstrated difficulty withdrawing from alcohol despite repeated in significant dosing of phenobarbital and dexmedetomidine. Recommended strategy to date is that since he presented initially with a very high blood alcohol level in addition to having a urine drug screen positive for benzodiazepine, that he would likely have a severe level of physiologic dependence and likely a high degree of up regulated NAREN receptors in his brain. Up to this point, we have recommended fairly high levels of IV benzodiazepines while tapering and discontinuing phenobarb and dexmedetomidine and monitoring CIWA scores and in particular respiration and blood pressure. Since his CIWA scores seem to be fairly stable, his behavior has improved, would begin to back off on his daily dosing of diazepam. RECOMMENDATIONS: 1. Decrease diazepam to 20 mg p.o. t.i.d. 2. Continue to monitor CIWA scores particularly blood pressure and adjust diazepam dose accordingly. 3. Continue supportive care and attention to respiratory status and blood pressure. 5. Will continue to follow with you. 09/14: Patient is cogent today discussed plans for continued treatment of his condition after hospitalization. His gait is stable he is capable of all of his self-care he has not required any additional doses of interventional sedatives in the last 24 hours Review of systems: No vomiting No chest pain No seizure Physical exam: Fine tremor alert conversant and understanding his situation HEENT unremarkable No labored respiration Abdomen nondistended Extremities no edema Moves all extremities Assessment and plan: Resolved Agitated delirium secondary to alcohol withdrawal, suspected benzodiazepine withdrawal, and suspected manic phase of bipolar disorder Stable on the following oral regimen: * Diazepam 30 mg q.i.d. * Clonidine 0.2 mg t.i.d. * Depakote 250 mg t.i.d. * Seroquel 50 mg q.h.s. severe alcohol dependence * Withdrawal has resolved. * He will benefit from inpatient rehabilitation. * Is engaged with a sponsor in AA asthma * Is stable and well controlled at this time Malnutrition, severe * Loaded with thiamine IV * Maintained with thiamine p.o. * Advance nutrition Frequent history of leaving the hospital against medical advice * He was felt to be an appropriate hold under [employer] law. Code status * Full Prophylaxis * Low Tim score; SCDs Disposition * Patient is medically cleared * Transferred to [facility] approved Time-Based Coding :: 35 minutes spent with patient and on the chart (including review of chart, obtaining history, exam, reviewing outside data, placing orders, documenting exam and treatment plan, and counseling patient) Discharge Providers Provider Date of admission: 08/27/25 18:31 Discharge Date: 09/14/25 Consults: 08/27/25 16:08 Consult to EDGER TAILER - Customs Compliance Specialist Stat Comment: Customs Compliance Specialist Consult needed for:: Substance abuse 09/05/25 11:12 Consult to Physical Therapy Evaluate & Treat Comment: Physician Instructions: Evaluate and Treat 09/09/25 10:18 Consult After Hours PICC Line RN Routine Comment: 09/10/25 05:48 Consult to Physical Therapy Evaluate & Treat Comment: Physician Instructions: Evaluate and Treat Discharge provider: Cisco Amaro MD Exam Vital Signs (past 8 hours): - 09/14/25 05:35 09/14/25 05:35 09/14/25 05:36 Temperature 98.6 F Pulse Rate 97 H 96 H Respiratory Rate 16 Blood Pressure 134/95 H 134/95 H Pulse Oximetry 99 96 Oxygen Delivery Method Oxygen Flow Rate 09/14/25 07:00 09/14/25 11:00 Temperature 97.1 F L Pulse Rate 100 H Respiratory Rate 19 Blood Pressure 148/99 H Pulse Oximetry 98 Oxygen Delivery Method Room Air Oxygen Flow Rate 0 Oxygen Delivery Method Room Air Oxygen Flow Rate 0 Objective Labs 09/11/25 04:25 09/13/25 05:50 Labs: Laboratory Results - last 24 hr 09/14/25 04:30 Magnesium 1.9 PFSH Medical History Asthma Alcohol abuse Social History household members: family alcohol intake: current Discharge Plan Discharge Plan Patient Disposition: Home Discharge orders & Medications Prescriptions: New quetiapine 25 mg Tablet 50 mg PO BEDTIME Qty: 3 0RF clonidine HCl 0.1 mg Tablet 0.2 mg PO Q8H Qty: 30 0RF nicotine 14 mg/24 hr Patch 24 Hour 14 mg topical DAILY Qty: 1 0RF divalproex [Depakote] 250 mg Tablet,Delayed Release (Dr/Ec) 250 mg PO TID Qty: 30 0RF famotidine [Pepcid AC] 20 mg Tablet 20 mg PO BID Qty: 30 0RF ibuprofen 400 mg Tablet 200 mg PO Q4H PRN (Reason: Pain, Mild (1-3)) Qty: 30 0RF ondansetron 4 mg Tablet,Disintegrating 4 mg sublingual Q6HR PRN (Reason: Nausea) Qty: 3 0RF diazepam 5 mg Tablet 30 mg PO Q6H Qty: 30 0RF Discontinued chlordiazepoxide HCl 25 mg capsule 25 mg PO Q8-12H PRN (Reason: anxiety) Qty: 14 0RF amoxicillin-pot clavulanate 875-125 mg tablet 1 tab PO BID Qty: 14 0RF ondansetron 4 mg tablet,disintegrating 4 mg PO Q6H PRN (Reason: nausea and vomiting) Qty: 14 0RF Visit Report/Discharge Packet Stand Alone Forms: Patient Portal/API, Stroke Signs & Symptoms
== END 2025-09-14 13:50 | DRG 775 ==
LOC: ED 15:27 → AC 18:32 → ICU 19:46
PROVIDERS: Family Medicine; Hospitalist; Internal Medicine; Pharmacist Pharmacist Clinician (PhC)/ Clinical Pharmacy Specialist; Admitting Provider Internal Medicine; Emergency Provider Emergency Medicine; Referring Provider Emergency Medicine; Visit Provider Internal Medicine
DX: F10.231 Alcohol dependence with withdrawal delirium (principal); F19.239 Other psychoactive substance dependence with withdrawal, unspecified; R45.1 Restlessness and agitation; J45.909 Unspecified asthma, uncomplicated; F41.9 Anxiety disorder, unspecified; E43 Unspecified severe protein-calorie malnutrition; F10.229 Alcohol dependence with intoxication, unspecified; F30.9 Manic episode, unspecified; F17.210 Nicotine dependence, cigarettes, uncomplicated; Y90.8 Blood alcohol level of 240 mg/100 ml or more; Z68.26 Body mass index [BMI] 26.0-26.9, adult; Z53.29 Procedure and treatment not carried out because of patient's decision for other reasons
CPT/HCPCS: 36415; 36569; 70450; 70551; 71045; 80048; 80053; 80305; 80320; 83690; 83735; 84100; 84439; 84443; 85025; 87797; 94760; 96374; 96375; 97110; 97112; 97116; 97161; 97530; 99222; 99284; 99285; 99291; A9270; J0780; J1171; J1630; J1642; J1644; J2060; J2270; J2405; J2560; J2765; J3230; J3360; J3475; J3490; J7030; J7040; J7050